=== PATIENT | female | born 1990 | race Caucasian/White ===

== ENCOUNTER → 2024-08-09 | Outpatient (CLI) | payer OTHER, SELFPAY ==
--- NOTE | 2024-08-09 07:14 | NM_ITS ---
PROCEDURE: GASTRIC EMPTYING STUDY - 4 HR 08/09/2024 REASON FOR EXAM: NAUSEA, EPIGASTRIC PAIN, EARLY SATIETY COMPARISON: None. TECHNIQUE: The patient ingested a standard meal of 2 pieces of bread with 2 eggs and 2 pads of butter. There was no vomiting postprandially. Anterior and posterior planar images of the upper abdomen were obtained for 1 minute immediately following the meal at 1h, 2h and 4h if more than 10% of the activity persisted within the stomach. Regions of interest were drawn, and a geometric mean was used to calculate a [id number]. RADIOPHARMACEUTICAL: 1.1 mCi of technetium labeled sulfur colloid. FINDINGS: Percent activity remaining in stomach: 1 hour 22 % (normal 37-90%) 2 hours: 41 % (normal 30-60%) 4 hours: 91 % (normal 0-10%) NM/Gastric Emptying Study - 4 HR IMPRESSION: Normal gastric emptying examination. Reading Location: [place] [id number]
== END | disposition home or self-care (01) ==
LOC: NM 07:14
PROVIDERS: PCP Nurse Practitioner Family; Referring Provider Nurse Practitioner Acute Care; Visit Provider Nurse Practitioner Acute Care
DX: R11.0 Nausea (principal); R10.13 Epigastric pain; R68.81 Early satiety
CPT/HCPCS: 78264; A9541

== ENCOUNTER → 2024-12-02 | Outpatient (CLI) | payer OTHER, SELFPAY ==
--- OUTSIDE RECORDS SUMMARY | 2024-12-02 06:49 | XMS RPT_ITS | CCD ---
Author Organization [facility] Care Team Providers Care 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 Name Role Phone OLIVERSON SKIVER SOCK LININGS-CORRECTIONAL CASE MANAGER, HAILY Primary Care Physician Jaelyn Li DO Primary Care Provider ADRIAN BLACKMAN Referring Unavailable JAELYN LI Primary Care Unavailable RO WOOTEN Attending Unavailable JAELYN LI Primary Care Unavailable LORSON SKIVER SOCK LININGS-CORRECTIONAL CASE MANAGER, HAILY Attending Unavail able LORSON SKIVER SOCK LININGS-CORRECTIONAL CASE MANAGER, [facility] Primary Care Unavail able LORSON SKIVER SOCK LININGS-CORRECTIONAL CASE MANAGER, HAILY Attending Unavail able LORSON SKIVER SOCK LININGS-CORRECTIONAL CASE MANAGER, [place] Primary Care Unavail able LORSON SKIVER SOCK LININGS-CORRECTIONAL CASE MANAGER, HAILY Attending Unavail able LORSON SKIVER SOCK LININGS-CORRECTIONAL CASE MANAGER, [place] Primary Care Unavail able MARY VERDE, DR LLANOS Attending Unavailable LORSON SKIVER SOCK LININGS-CORRECTIONAL CASE MANAGER, [facility] Care Unavail able FLOWER FONTANA MD Attending Unavailable LORSON SKIVER SOCK LININGS-CORRECTIONAL CASE MANAGER, [facility] Care Unavail able LORSON SKIVER SOCK LININGS-CORRECTIONAL CASE MANAGER, HAILY Attending Unavail able LORSON SKIVER SOCK LININGS-CORRECTIONAL CASE MANAGER, [place] Primary Care Unavail able ISACC RILEY MD Attending Unavail able LORSON SKIVER SOCK LININGS-CORRECTIONAL CASE MANAGER, [facility] Care Unavail able LORSON SKIVER SOCK LININGS-CORRECTIONAL CASE MANAGER, HAILY Attending Unavail able LORSON SKIVER SOCK LININGS-CORRECTIONAL CASE MANAGER, [place] Primary Care Unavail able LORSON SKIVER SOCK LININGS-CORRECTIONAL CASE MANAGER, [place] Primary Care Physician Stephanie PRODUCT DEVELOPMENT SPECIALIST-CHaily Primary Care Provider [phone] Haily Falcon Referring Provider [phone] Carolyn Wheeler Attending Provider Dr. Thony Stein DO Attending Provider Dr. Thony Stein DO Other Provider Umu Wheelernifer Referring Provider Carolyn Sanches Attending Unavailable Lorson PRODUCT DEVELOPMENT SPECIALIST, [place] Referring Unavailable Lorson PRODUCT DEVELOPMENT SPECIALIST, [facility] Unavailable Lorson PRODUCT DEVELOPMENT SPECIALIST, [facility] Unavailable Cezar Joel Attending Unavailabl e Warrebekahann, Cezar Referring Unavailabl e Carolyn Sanches Referring Unavailable Lorson PRODUCT DEVELOPMENT SPECIALIST, [facility] Unavailable Caorlyn Sanches Attending Unavailable Carolyn Sanches Referring Unavailable Lorson PRODUCT DEVELOPMENT SPECIALIST, [facility] Unavailable Carolyn Sanches Attending Unavailable Lorson PRODUCT DEVELOPMENT SPECIALIST, [facility] Unavailable Cezar Joel Attending Unavailabl e Warrebekahann, Cezar Referring Unavailabl e Lorson PRODUCT DEVELOPMENT SPECIALIST, [facility] Unavailable Cezar Joel Attending Unavailabl e Wartmann, Cezar Referring Unavailabl e Lorson PRODUCT DEVELOPMENT SPECIALIST, [facility] Unavailable Lorson PRODUCT DEVELOPMENT SPECIALIST, [place] Referring Unavailable Thony Stein Attending Unavailable Lorson PRODUCT DEVELOPMENT SPECIALIST, [place] Referring Unavailable Lorson PRODUCT DEVELOPMENT SPECIALIST, [facility] Unavailable Carolyn Sanches Attending Unavailable Lorson PRODUCT DEVELOPMENT SPECIALIST, [place] Referring Unavailable Lorson PRODUCT DEVELOPMENT SPECIALIST, [facility] Unavailable FriendThony Consulting Unavailable FriendThony Attending Unavailable Lorson PRODUCT DEVELOPMENT SPECIALIST, [facility] Unavailable Lorson PRODUCT DEVELOPMENT SPECIALIST, [place] Referring Unavailable Carolyn Sanches Attending Unavailable Carolyn Sanches Attending Unavailable Lorson PRODUCT DEVELOPMENT SPECIALIST, [facility] Unavailable Lorson PRODUCT DEVELOPMENT SPECIALIST, [place] Referring Unavailable LORSON SKIVER SOCK LININGS-CORRECTIONAL CASE MANAGER, [place] Attending Unavail able LORSON SKIVER SOCK LININGS-CORRECTIONAL CASE MANAGER, [place] Primary Care Unavail able LORSON SKIVER SOCK LININGS-CORRECTIONAL CASE MANAGER, [place] Attending Unavail able LORSON SKIVER SOCK LININGS-CORRECTIONAL CASE MANAGER, [place] Primary Care Unavail able LORSON SKIVER SOCK LININGS-CORRECTIONAL CASE MANAGER, HAILY Attending Unavail able LORSON SKIVER SOCK LININGS-CORRECTIONAL CASE MANAGER, [place] Primary Care Unavail able LORSON SKIVER SOCK LININGS-CORRECTIONAL CASE MANAGER, [place] Attending Unavail able LORSON SKIVER SOCK LININGS-CORRECTIONAL CASE MANAGER, [facility] Unavail able LORSON SKIVER SOCK LININGS-CORRECTIONAL CASE MANAGER, [facility] Care Unavail able HARRIS VERDE, KYLE Carter Attending Unavailable Allergies Allergy Classification Reported Allergen(s) Allergy Type Date of Onset Reaction(s) Facility (12 sources) pork allergenic extract Drug Allergy Nausea (finding) [facility] (3 sources) busPIRone; Translations: [BUSPIRONE] Drug Allergy 3 GI Upset [facility] Work Phone: (3 sources) Gelatin; Translations: [GELATIN, PORK] Drug Allergy 3 Diarrhea, GI Upset [facility] Work Phone: (3 sources) pantoprazole; Translations: [PANTOPRAZOLE] Drug Allergy 3 GI Upset [facility] Work Phone: (3 sources) pork allergenic extract; Translations: [PORK EXTRACT] Drug Allergy 3 GI Upset [facility] Work Phone: (1 source) Pork/Porcine Containing Products Allergy to substance 5 Other [facility] (1 source) Pork/Porcine Containing Products Drug allergy (disorder) 5 [facility] Repository Medications Current Medications Medication Drug Class(es) Dates Sig (Normalized) Sig (Original) amitriptyline hydrochloride 10 mg oral tablet (1 source) Tricyclic Antidepressant Start: 01-23-2022 End: 02-22-2022 amitriptyline 10 mg oral tablet Dose : 10 mg = 1 tab(s), Oral, qHS, # 30 tab(s), 0 Refill(s), Pharmacy: [facility]/pharmacy #[id number], 163.1, cm, 01/23/22 9:23:00 EDT, Height Start Date: 01/23/22 Stop Date: 02/22/22 Status: Ordered ascorbic acid 250 mg oral tablet (1 source) Vitamin C Start: 03-29-2024 take 1 tablet by mouth once daily Ascorbic Acid (Vitamin C) 250 mg tablet Active 250 mg PO daily March 29, 2024 1:00am cholecalciferol 1.25 mg oral capsule (1 source) Vitamin D Start: 06-27-2022 take 1 capsule by mouth every month Cholecalciferol (Vitamin D3) 1,250 mcg (50,000 unit) capsule Active 1250 ug PO EVERY MONTH June 27, 2022 1:00am escitalopram 10 mg oral tablet (1 source) Serotonin Reuptake Inhibitor Start: 08-30-2024 End: 09-02-2025 escitalopram 10 mg oral tablet Dose : 10 mg = 1 tab(s), Oral, qDay, # 30 tab(s), 3 Refill(s), Pharmacy: [facility]/pharmacy #[id number], 165.5, cm, 08/30/24 10:56:00 EDT, Height, kg, 08/30/24 10:56:00 EDT, Dosing Weight Start Date: 08/30/24 Stop Date: 12/28/24 Status: Ordered Quantity: 30.0 Unit: tab(s) Repeat number: 4 estradiol 0.1 mg/ml vaginal cream (12 sources) Estrogen Start: 03-29-2024 Estradiol (Estrace) 0.01 % (0.1 mg/gram) cream Active 1 g VAGINAL TWICE A WEEK March 29, 2024 1:00am Start: 03-01-2024 End: 02-24-2025 estradiol 2 mg oral tablet D ose : 2 mg = 1 tab(s), Oral, qDay, # 90 tab(s), 3 Refill(s), [id number], 160, cm, 03/01/24 8:30:00 EST, Height, kg, 03/01/24 8:30:00 EST, Dosing Weight Start Date: 03/01/24 Stop Date: 02/24/25 Status: Ordered Quantity: 90.0 Unit: tab(s) Repeat number: 4 Start: 03-01-2024 End: 11-21-2025 Estrace Vaginal 0.1 mg/g vag inal cream Dose = 1 appl, Vaginal, 2X/week, # 42.5 gram(s), 6 Refill(s), [id number], 160, cm, 03/01/24 8:30:00 EST, Height, kg, 03/01/24 8:30:00 EST, Dosing Weight Start Date: 03/01/24 Stop Date: 11/21/25 Status: Ordered Quantity: 42.5 Unit: g Repeat number: 7 Start: 06-27-2022 End: 03-29-2024 Estradiol 0.1 mg/24 hr patch semiweekly Discontinued 1 NMA TD TWICE A WEEK June 27, 2022 1:00am March 29, 2024 9:59am apply 1 patch for 3 days alternating with 1 patch for 4 days each week for 3 wks per 4-wk cycle Start: 09-24-2020 Climara 0.1 mg /24 hours weekly transdermal film, extended release Apply 1 patch(es), Topical, qWeek, # 12 patch(es), 3 Refill(s), [id number], 160, cm, 09/21/20 14:27:00 EDT, Height, 82, kg, 09/21/20 14:27:00 EDT, Dosing Weight Start Date: 09/24/20 Status: Ordered Estradiol Patch 0.1 mg/24 ho urs weekly transdermal film, extended release (10 sources) Start: 10-16-2022 Estradiol Patc h 0.1 mg/24 hours weekly transdermal film, extended release 1 patch(es), Topical, qWeek, # 12 patch(es), 3 Refill(s), Pharmacy: [facility] [id number], 160, cm, 08/15/22 16:58:00 EDT, Height, kg, 08/15/22 16:58:00 EDT, Dosing Weight Start Date: 10/16/22 Status: Ordered Start: 09-14-2021 Estradiol Patc h 0.1 mg/24 hours weekly transdermal film, extended release 1 patch(es), Topical, qWeek, # 12 patch(es), 3 Refill(s), [id number], 163, cm, 08/20/21 9:44:00 EDT, Height, kg, 08/20/21 9:44:00 EDT, Dosing Weight Start Date: 09/14/21 Status: Ordered furosemide 20 mg oral tablet (1 source) Loop Diuretic Start: 09-27-2024 furosemide 20 mg oral tablet Dose : 20 mg = 1 tab(s), Oral, qDay, # 30 tab(s), 0 Refill(s), [id number], 165.5, cm, 09/27/24 11:31:00 EDT, Height, kg, 09/27/24 11:31:00 EDT, Dosing Weight Start Date: 09/27/24 Status: Ordered Quantity: 30.0 Unit: tab(s) Repeat number: 1 Lactulose (1 source) Osmotic Laxative Start: 07-07-2024 take 10 g by mouth once Lactulose 10 gram/15 mL solution Active 10 g PO ONCE July 07, 2024 12:00am take as directed for breath testing magnesium glycinate 100 mg oral tablet (4 sources) Start: 03-01-2024 magnesium glycinate 100 mg oral capsule Dose : 200 mg = 2 cap(s), Oral, qDay, # 60 cap(s), 0 Refill(s) Start Date: 03/01/24 Status: Ordered Quantity: 60.0 Unit: cap(s) Repeat number: 1 Magnesium Glycinate 100 mg magnesium capsule (1 source) Start: 03-29-2024 Magnesium Glycinate 100 mg magnesium capsule Active 200 mg PO DAILY March 29, 2024 1:00am phentermine hydrochloride 37.5 mg oral tablet (2 sources) Sympathomimetic Amine Anorectic Start: 03-15-2024 End: 06-13-2024 phentermine 37.5 mg oral tablet Dose : 37.5 mg = 1 tab(s), Oral, qDay, before breakfast, X 30 day(s), # 30 tab(s), 2 Refill(s), 06/13/24 4:56:00 PM EST, Pharmacy: [facility]/pharmacy #[id number], BMI 32.0-32.9,adult, 163, cm, 03/08/24 10:25:00 EST, Height, 85.3, kg, 03/08/24 10:25:00 EST, Dosing Weight Start Date: 03/15/24 Stop Date: 06/13/24 Status: Ordered Vitamin C 250 mg oral tablet (4 sources) Start: 03-01-2024 Vitamin C 250 mg oral tablet Dose : 250 mg = 1 tab(s), Oral, qDay, 0 Refill(s) Start Date: 03/01/24 Status: Ordered Repeat number: 1 Start: 03-01-2024 Vitamin C 250 mg oral tablet Dose : 250 mg = 1 tab(s), Oral, qDay, 0 Refill(s) Start Date: 03/01/24 Status: Ordered Vitamin D3 1250 mcg (50,000 intl units) oral capsule (11 sources) Start: 08-27-2021 Vitamin D3 125 0 mcg (50,000 intl units) oral capsule Dose : 50,000 International_Unit = 1 cap(s), Oral, qWeek, # 12 cap(s), 3 Refill(s), Pharmacy: [facility]/pharmacy #[id number], 163, cm, 08/20/21 9:44:00 EDT, Height, kg, 08/20/21 9:44:00 EDT, Dosing Weight Start Date: 08/27/21 Status: Ordered Quantity: 12.0 Unit: cap(s) Repeat number: 4 Start: 08-27-2021 Vitamin D3 125 0 mcg (50,000 intl units) oral capsule Dose : 50,000 International_Unit = 1 cap(s), Oral, qWeek, # 12 cap(s), 3 Refill(s), Pharmacy: [facility]/pharmacy #[id number], 163, cm, 08/20/21 9:44:00 EDT, Height, kg, 08/20/21 9:44:00 EDT, Dosing Weight Start Date: 08/27/21 Status: Ordered Vitamin D3 50,000 intl units (1250 mcg) oral capsule (1 source) Start: 09-26-2020 Vitamin D3 50, 000 intl units (1250 mcg) oral capsule Dose : 50,000 International_Unit = 1 cap(s), Oral, qWeek, # 12 cap(s), 3 Refill(s), Pharmacy: [facility]/pharmacy #[id number], 160, cm, 09/21/20 14:27:00 EDT, Height, kg, 09/21/20 14:27:00 EDT, Dosing Weight Start Date: 09/26/20 Status: Ordered vitamin e 100 unt oral capsule (4 sources) Start: 03-01-2024 vitamin E 100 intl units oral capsule Dose : 100 International_Unit = 1 cap(s), Oral, Daily, 0 Refill(s) Start Date: 03/01/24 Status: Ordered Repeat number: 1 Vitamin E 100 unit tablet (1 source) Start: 03-29-2024 take 1 tablet by mouth once daily Vitamin E 100 unit tablet Active 100 U PO DAILY March 29, 2024 1:00am Vonoprazan (Voquezna) 20 mg tablet (2 sources) Start: 06-09-2024 take 1 tablet by mouth once daily Vonoprazan (Voquezna) 20 mg tablet Active 20 mg PO daily June 09, 2024 11:37pm Start: 03-29-2024 End: 06-09-2024 take 1 tablet by mouth once daily Vonoprazan (Voquezna) 20 mg tablet Discontinued 20 mg PO daily March 29, 2024 1:00am June 09, 2024 11:37pm vonoprazan 20 MG Oral Tablet [Voquezna] (1 source) Start: 08-30-2024 Voquezna 20 mg oral tablet Dose : 20 mg = 1 tab(s), Oral, BID, # 60 EA, 0 Refill(s) Start Date: 08/30/24 Status: Ordered Quantity: 60.0 Unit: EA Repeat number: 1 Completed/Discontinued Medications Medication Drug Class(es) Dates Sig (Normalized) Sig (Original) Acetaminophen (1 source) Start: 03-28-2014 End: 06-27-2022 Tylenol tablet Discontinued 2 {tbl} PO EVERY 8 HOURS NEEDED as needed for general discomfort March 28, 2014 1:00am June 27, 2022 12:02pm acetaminophen 325 mg / HYDROcodone bitartrate 5 mg oral tablet (6 sources) Opioid Agonist Start: 02-27-2023 acetaminophen-hydro codone 325 mg-5 mg oral tablet Dose = 1 tab(s), Oral, BID, PRN for pain, 0 Refill(s), 78.3 Start Date: 02/27/23 Status: Ordered Repeat number: 1 take 325 mg by mouth twice daily hydrocodone/acetaminophen (VICODIN ORAL) Take 325 mg by mouth two times a day. 0 Active Comment on above: Take 325 mg by mouth two times a day. colesevelam hydrochloride 625 mg oral tablet (11 sources) Bile Acid Sequestrant Start: 07-23-2021 Welchol 625 mg oral tablet Dose : 1,875 mg = 3 tab(s), Oral, qDay, # 270 tab(s), 3 Refill(s), Pharmacy: [facility]/pharmacy #[id number], 163, cm, 07/23/21 9:23:00 EDT, Height, kg, 07/23/21 9:23:00 EDT, Dosing Weight Start Date: 07/23/21 Status: Ordered Start: 02-14-2017 End: 03-29-2024 take 3 tablets by mouth once daily in the morning Colesevelam 625 mg tablet Discontinued 1875 mg PO EVERY MORNING June 27, 2022 1:00am March 29, 2024 10:54am Comment on above: TAKE 3 TABLETS BY [facility] EVERY DAY Oral for 90 DULoxetine 20 mg delayed release oral capsule (14 sources) Serotonin and Norepinephrine Reuptake Inhibitor Start: 03-29-20 End: 04-01-20 take 2 capsules by mouth once daily Duloxetine (Cymbalta) 20 mg capsule,delayed release(DR/EC) Discontinued 40 mg PO daily March 29, 2024 1:00am April 01, 2024 11:11am Start: 08-04-2023 End: 07-29-2024 DULoxetine 20 mg oral delaye d release capsule Dose : 40 mg = 2 cap(s), Oral, qDay, # 60 cap(s), 11 Refill(s), Pharmacy: [facility]/pharmacy #[id number], 160, cm, 05/22/23 8:08:00 EST, Height, kg, 05/22/23 8:08:00 EST, Dosing Weight Start Date: 08/04/23 Stop Date: 07/29/24 Status: Ordered Start: 06-27-2022 End: 03-03-2023 take 2 capsules by mouth once daily DULoxetine (CYMBALTA) 20 mg capsule 2 CAP(S) ORALLY DAILY FOR 30 DAY(S) 0 12/21/2022 03/03/2023 Discontinued Start: 01-31-2021 End: 05-22-2023 DULoxetine 20 mg oral delaye d release capsule Dose : 40 mg = 2 cap(s), Oral, qDay, # 60 cap(s), 11 Refill(s), Pharmacy: [facility]/pharmacy #[id number], 160, cm, 03/25/22 7:58:00 EST, Height, kg, 05/27/22 10:56:00 EST, Dosing Weight Start Date: 05/27/22 Stop Date: 05/22/23 Status: Ordered Comment on above: 2 CAP(S) ORALLY ANA Y FOR 30 DAY(S) esomeprazole 20 mg delayed release oral capsule (8 sources) Proton Pump Inhibitor Start: End: take 1 capsule by mouth twice daily Esomeprazole Magnesium (Nexium) 20 mg capsule,delayed release(DR/EC) Discontinued 20 mg PO TWICE A DAY June 27, 2022 12:01pm March 29, 2024 9:58am Start: 03-28-2014 End: 09-24-2022 NexIUM 20 mg oral delayed re lease capsule Dose : 20 mg = 1 cap(s), Oral, BID, # 60 cap(s), 3 Refill(s), Pharmacy: [facility]/pharmacy #[id number], 160, cm, 03/25/22 7:58:00 EST, Height Start Date: 05/27/22 Stop Date: 09/24/22 Status: Ordered fluticasone propionate 0.05 mg/actuat metered dose nasal spray (2 sources) Corticosteroid Start: 01-14-2018 take 2 spray(s) by mouth once daily fluticasone (FLONASE) 50 mcg/actuation nasal spray Use 2 Sprays in each nostril once daily. Rinse mouth after use. 1 Bottle 0 01/14/2018 Active Comment on above: Use 2 Sprays in each nostril once daily. Rinse mouth after use. hydroCHLOROthiazide 12.5 mg oral tablet (5 sources) Thiazide Diuretic Start: 03-27-2022 End: 03-29-2024 take 1 tablet by mouth once daily Hydrochlorothiazide 12.5 mg tablet Discontinued 12.5 mg PO DAILY June 27, 2022 1:00am March 29, 2024 9:59am Start: 01-23-2022 End: 03-20-2022 hydroCHLOROthiazide 12.5 mg oral tablet Dose : 12.5 mg = 1 tab(s), Oral, qDay, # 30 tab(s), 0 Refill(s), Pharmacy: [facility]/pharmacy #[id number], 163, cm, 02/18/22 9:33:00 EDT, Height, kg, 02/18/22 9:33:00 EDT, Dosing Weight Start Date: 02/18/22 Stop Date: 03/20/22 Status: Ordered loratadine 10 mg oral tablet (2 sources) Start: 01-14-2018 take 1 tablet by mouth once daily loratadine (CLARITIN) 10 mg tablet Take 1 tablet by mouth once daily. 30 tablet 0 01/14/2018 Active Comment on above: Take 1 tablet by brian th once daily. multivit-minerals/fe rrous fum (MULTI VITAMIN ORAL) (2 sources) multivit-mineral s/ ferrous fum (MULTI VITAMIN ORAL) Take by mouth once daily. 0 Active Comment on above: Take by mouth once d aily. naproxen 250 mg oral tablet (1 source) Nonsteroidal Anti-inflammatory Drug Start: 04-25-2014 End: 03-29-2024 take 250-500 mg by mouth every eight hours as needed for pain Naproxen 250 MG tablet Discontinued 250 - 500 mg PO EVERY 8 HOURS NEEDED as needed for Mild Pain (1-3/10) April 25, 2014 1:00am March 29, 2024 10:00am oxyCODONE hydrochloride 5 mg oral tablet (1 source) Opioid Agonist Start: 04-25-2014 End: 04-01-2024 take 5-10 mg by mouth every four hours as needed for pain Oxycodone 5 MG tablet Discontinued 5 - 10 mg PO EVERY 4 HOURS NEEDED as needed for Severe Pain (6-10/10) April 25, 2014 1:00am April 01, 2024 11:11am [id number] Fum-Folic Acid-Dss 1 EACH tablet (1 source) Start: 05-18-2013 End: 06-27-2022 take 1 tablet by mouth once daily [id number] Fum-Folic Acid-Dss 1 EACH tablet Discontinued 1 NMA PO DAILY May 18, 2013 1:00am June 27, 2022 12:02pm RABEprazole sodium 20 mg delayed release oral tablet (8 sources) Proton Pump Inhibitor Start: 03-29-2024 End: 04-01-2024 take 1 tablet by mouth once daily Rabeprazole 20 mg tablet,delayed release (DR/EC) Discontinued 20 mg PO daily March 29, 2024 1:00am April 01, 2024 11:11am Start: 07-08-2022 RABEprazole 20 mg oral delayed release enteric coated tablet Dose : 20 mg = 1 tab(s), Oral, qDayAC, # 90 tab(s), 0 Refill(s) Start Date: 11/26/22 Status: Ordered Comment on above: Take 20 mg by mouth. tiZANidine 2 mg oral capsule (6 sources) Central alpha-2 Adrenergic Agonist Start: 3 End: take 1 capsule by mouth every eight hours as needed Tizanidine 2 mg capsule Discontinued 2 mg PO Q8H as needed June 27, 2022 1:00am March 29, 2024 10:00am Start: 03-27-2022 End: 09-23-2022 tiZANidine 4 mg oral tablet Dose : 4 mg = 1 tab(s), Oral, q8h, Please d/c previous rx for 8 mg dose, # 90 tab(s), 5 Refill(s), [id number], 160, cm, 03/25/22 7:58:00 EST, Height, kg, 03/25/22 7:58:00 EST, Dosing Weight Start Date: 03/27/22 Stop Date: 09/23/22 Status: Ordered Start: 01-30-2022 End: 03-01-2022 tiZANidine 4 mg oral tablet Dose : 4 mg = 1 tab(s), Oral, q8h, Please d/c previous rx for 8 mg dose, # 90 tab(s), 0 Refill(s), [id number], 163.1, cm, 01/23/22 9:23:00 EDT, Height, kg, 01/23/22 9:23:00 EDT, Dosing Weight Start Date: 01/30/22 Stop Date: 03/01/22 Status: Ordered zolpidem tartrate 5 mg oral tablet (13 sources) gamma-Aminobutyric Acid-ergic Agonist Start: 03-25-2022 zolpidem 5 mg oral tablet See Instructions, 1 tab(s) Oral, 0 Refill(s), 86.8 Start Date: 03/25/22 Status: Ordered Repeat number: 1 Comment on above: TAKE 1 TABLET BY BRIAN TH EVERY DAY AT BEDTIME for 30 days Problems Active Problems Problem Classification Problem Date Documented Da te Episodic/Chronic Allergic reactions (17 sources) Contact dermatitis; Translations: [Unspecified contact dermatitis, unspecified cause] Onset: 3 01-23-2022 Episodic Anxiety disorders (14 sources) Mixed anxiety and depressive disorder; Translations: [Other specified anxiety disorders] Onset: 3 06-15-2019 Chronic Blindness and vision defects (6 sources) Blurring of visual image 11-27-2022 Episodic Chronic kidney disease (10 sources) Chronic kidney disease stage 3A ; Translations: [Stage 3a chronic kidney disease (HCC)] Onset: 3 12-11-2022 Chronic Chronic kidney disease (1 source) Chronic kidney disease; Translations: [Stage 3a chronic kidney disease (HCC)] Onset: 3 Coma; stupor; and brain damage (8 sources) Daytime somnolence; Translations: [Somnolence] Onset: 3 11-26-2022 Episodic Complications of surgical procedures or medical care (4 sources) Postsurgical menopause 03-01-2024 Chronic Diseases of white blood cells (5 sources) Leukocytosis; Translations: [Elevated white blood cell count, unspecified] Chronic Esophageal disorders (20 sources) Gastroesophageal reflux disease; Translations: [Erosive esophagitis] Onset: 2 04-19-2019 Chronic Essential hypertension (2 sources) Essential hypertension; Translations: [Essential (primary) hypertension] Onset: 3 03-03-2023 Chronic Fluid and electrolyte disorders (4 sources) Angioedema 05-22-2023 Episodic Genitourinary symptoms and ill-defined conditions (13 sources) Urinary incontinence; Translations: [Unspecified urinary incontinence] Onset: 3 08-20-2021 Chronic Immunizations and screening for infectious disease (11 sources) Abnormal finding on evaluation procedure; Translations: [Other specified abnormal immunological findings in serum] Episodic Intracranial injury (14 sources) Concussion with no loss of consciousness; Translations: [Concussion without loss of consciousness, initial encounter] Onset: 3 09-21-2020 Episodic Malaise and fatigue (20 sources) Fatigue; Translations: [Other fatigue] Onset: 3 09-21-2020 Episodic Nausea and vomiting (3 sources) Nausea; Translations: [Nausea] Onset: 5 08-03-2024 Episodic Other connective tissue disease (12 sources) Fibromyalgia; Translations: [Fibromyalgia] 01-23-2022 Episodic Other connective tissue disease (8 sources) Muscle pain; Translations: [Myalgia, unspecified site] Onset: 3 11-26-2022 Episodic Other endocrine disorders (1 source) Disorder of pancreatic internal secretion; Translations: [Other specified disorders of pancreatic internal secretion] Chronic Other endocrine disorders (4 sources) Hyperinsulinism 03-08-2024 Chronic Other eye disorders (8 sources) Dry eyes; Translations: [Dry eye syndrome of bilateral lacrimal glands] Onset: 3 11-26-2022 Episodic Other female genital disorders (4 sources) Pain in female genitalia on intercourse 03-01-2024 Chronic Other gastrointestinal disorders (14 sources) Irritable bowel syndrome; Translations: [Irritable bowel syndrome without diarrhea] Onset: 3 04-19-2019 Chronic Other gastrointestinal disorders (1 source) Irritable bowel syndrome with diarrhea; Translations: [Irritable bowel syndrome with diarrhea] 08-03-2024 Chronic Other gastrointestinal disorders (2 sources) Irritable bowel syndrome with diarrhea; Translations: [Irritable bowel syndrome with diarrhea] Onset: 5 Chronic Other gastrointestinal disorders (2 sources) Diarrhea, unspecified; Translations: [Diarrhea, unspecified] Onset: 4 Episodic Other gastrointestinal disorders (1 source) Functional diarrhea; Translations: [Functional diarrhea] Onset: 5 Episodic Other lower respiratory disease (8 sources) Snoring; Translations: [Snoring] Onset: 3 11-26-2022 Episodic Other lower respiratory disease (1 source) Dyspnea on exertion 09-27-2024 Episodic Other nervous system disorders (2 sources) Chronic pain; Translations: [Other chronic pain] Onset: 3 03-03-2023 Chronic Other non-traumatic joint disorders (12 sources) Joint pain 09-21-2020 Episodic Other nutritional; endocrine; and metabolic disorders (4 sources) Insulin resistance 05-22-2023 Chronic Other nutritional; endocrine; and metabolic disorders (1 source) Obese class III 08-30-2024 Chronic Other screening for suspected conditions (not mental disorders or infectious disease) (1 source) Patient encounter status; Translations: [Encounter for screening for other disorder] 03-03-2023 Episodic Other skin disorders (12 sources) Eruption; Translations: [Rash and other nonspecific skin eruption] Onset: 3 02-18-2022 Episodic Other skin disorders (8 sources) Neck swelling; Translations: [Localized swelling, mass and lump, neck] Onset: 3 11-26-2022 Episodic Other skin disorders (8 sources) Swelling of eyelid; Translations: [Edema of unspecified eye, unspecified eyelid] Onset: 3 11-27-2022 Episodic Other upper respiratory infections (1 source) Other chronic sinusitis; Translations: [Other chronic sinusitis] Onset: 4 Chronic Otitis media and related conditions (2 sources) Chronic serous otitis media; Translations: [Chronic serous otitis media, unspecified ear] Onset: 5 08-03-2024 Chronic Residual codes; unclassified (12 sources) Chronic pain 06-29-2020 Episodic Residual codes; unclassified (13 sources) Edema; Translations: [Edema, unspecified] Onset: 3 01-23-2022 Episodic Residual codes; unclassified (1 source) Family history of congestive heart failure 09-27-2024 Episodic Residual codes; unclassified (1 source) Swelling 09-27-2024 Episodic Thyroid disorders (2 sources) Hypothyroidism; Translations: [Hypothyroidism, unspecified] Onset: 3 03-03-2023 Chronic Unclassified (4 sources) Patient encounter status 03-01-2024 Past or Other Problems Problem Classification Problem Date Documented Da te Episodic/Chronic Abdominal pain (20 sources) Abdominal pain; Translations: [Unspecified abdominal pain] Onset: 04-28-2014 02-03-2017 Episodic Other gastrointestinal disorders (15 sources) Diarrhea; Translations: [Diarrhea, unspecified] Onset: 04-28-2014 02-03-2017 Episodic Results Test Name Value Interpretation Reference Range Facility .GFRon 09-27-2024 Estimated Glomerular Filtration Rate 80 ml/min/1.73sqm Normal [facility] Comment on above: Result Comment: Stages of Chronic Kidney Disease (CKD) Stage Description eGFR(ml/min/1.73 sq.m.) CKD 1 Normal kidney function or >=90 normal kindney function with possible kidney damage (ex. Proteinuria) CKD 2 Kidney damage with mild loss 60-89 of kidney function CKD 3a Mild to moderate loss of kidney 45-59 function CKD 3b Moderate to severe loss of 30-44 of kindey function CKD 4 Severe loss of kidney function 15-29 CKD 5 Kidney failure <15 Note: (go live 2024) the eGFR calculation was updated to the 2020 CKD-EPI creatinine equation without a race factor to calculate the eGFR results. Performed By: #### B MP, GFR #### [address] [address] BMPon 09-27-2024 BUN/Creatinine Ratio 19 ratio Normal 7-27 [facility] Comment on above: Performed By: #### B MP, GFR #### [address] [address] Calcium [Mass/Vol] 8.9 mg/dL Normal 8.4-10.2 [facility] Comment on above: Performed By: #### B MP, GFR #### [address] [address] Chloride [Moles/Vol] 107 mmol/L Normal 98-107 [facility] Comment on above: Performed By: #### B MP, GFR #### [address] [address] CO2 [Moles/Vol] 30 mmol/L High 22-29 [facility] Comment on above: Performed By: #### B MP, GFR #### [address] [address] Creatinine [Mass/Vol] 0.95 mg/dL Normal 0.51-0.95 [facility] Comment on above: Performed By: #### B MP, GFR #### [address] [address] Electrolyte Balance 6.0 mEq/L Normal 4.0-15.[address] [facility] Comment on above: Performed By: #### B MP, GFR #### [address] [address] Glucose [Mass/Vol] 92 mg/dL Normal 70-105 [facility] Comment on above: Performed By: #### B MP, GFR #### [address] [address] Potassium [Moles/Vol] 4.5 mmol/L Normal 3.5-5.1 [facility] Comment on above: Performed By: #### B MP, GFR #### [address] [address] Sodium [Moles/Vol] 143 mmol/L Normal 136-145 [facility] Comment on above: Performed By: #### B MP, GFR #### [facility] [address] [place], [place] [address] Urea nitrogen [Mass/Vol] 18 mg/dL Normal 7-18 [facility] Comment on above: Performed By: #### B MP, GFR #### [facility] [address] [place], [place] [address] LABORATORYOrdered By: SYSTEM SYSTEM on 09-27-2024 Calcium [Mass/Vol] 8.9 mg/dL Normal 8.4 - 10. 2 mg/dL AO ADM SS Chloride [Moles/Vol] 107 mmol/L Normal 98 - 10 7 mmol/L AO ADM SS CO2 [Moles/Vol] 30 mmol/L High 22 - 29 mmol/L AO ADM SS Creatinine [Mass/Vol] 0.95 mg/dL Normal 0.51 - 0.95 mg/dL AO ADM SS Electrolyte Balance 6.0 mEq/L Normal 4.0 - 15 .0 mEq/L AO ADM SS Estimated Glomerular Filtration Rate 80 ml/min/1.73sqm Invalid Interpretation Code AO Chemistry S Comment on above: Interpretive Data: Stages of Chronic Kidney Disease (CKD) Stage Description eGFR(ml/min/1.73 sq.m.) CKD 1 Normal kidney function or >=90 normal kindney function with possible kidney damage (ex. Proteinuria) CKD 2 Kidney damage with mild loss 60-89 of kidney function CKD 3a Mild to moderate loss of kidney 45-59 function CKD 3b Moderate to severe loss of 30-44 of kindey function CKD 4 Severe loss of kidney function 15-29 CKD 5 Kidney failure <15 Note: (go live 2024) the eGFR calculation was updated to the 2020 CKD-EPI creatinine equation without a race factor to calculate the eGFR results. Glucose [Mass/Vol] 92 mg/dL Normal 70 - 105 mg/dL AO ADM SS Natriuretic peptide.B prohormone N-Terminal [Mass/Vol] 71 pg/mL Normal 0 - 125 pg/mL AO ADM SS Comment on above: Interpretive Data: N T-proBNP results of less than 300 pg/mL effectively rules out acute congestive heart failure with 99% negative predictive value. Potassium [Moles/Vol] 4.5 mmol/L Normal 3.5 - 5.1 mmol/L AO ADM SS Sodium [Moles/Vol] 143 mmol/L Normal 136 - 145 mmol/L AO ADM SS Urea nitrogen [Mass/Vol] 18 mg/dL Normal 7 - 18 mg/dL AO ADM SS Urea nitrogen/Creatinine [Mass ratio] 19 ratio Normal 7 - 27 ratio AO ADM SS PBNPon 09-27-2024 Natriuretic peptide B (Bld) [Mass/Vol] 71 pg/mL Normal 0-125 [facility] Comment on above: Result Comment: NT-p roBNP results of less than 300 pg/mL effectively rules out acute congestive heart failure with 99% negative predictive value. Performed By: #### B MP, GFR #### [facility] [address] [place], [place] [address] Gastroenterology Visit Repor ton 08-16-2024 Gastroenterology Visit Report [facility] Gastroenter[facility] [address] [place] [address] OFFICE VISIT Date of Service: 08/16/24 MR#: [id number] Acct: [id number] Name: GHAZALA MARTIN Rep #: [id number] : 1990 Provider: GERHARD lorenzo Age/Sex: 34/F Location[place] [facility] Status: Signed Intake Vital Signs 06/21/24 08:36 08/16/24 08:58 Height 5 ft 3 in 5 ft 3 in Weight: 184 lb 184 lb 4 oz BMI 32.5 32.6 BP 126/88 H 120/86 H Blood Pressure Location Lt brachial Position Sitting Respiration 18 16 Pulse 91 91 Pulse Source Monitor Pulse Oximetry (%) 97 96 Oxygen Delivery Method room air Intake Visit Reasons: 6 wk FU Chief Complaint: pain Allergies Pork/Porcine Containing Products Allergy (Intermediate, Verified 08/03/24 05:50) Other Medications ???Medication ???Instructions ???Recorded ???Confirmed ???Type cholecalciferol (vitamin D3) 1,250 1,250 mcg PO QMONTH 06/27/22 History mcg (50,000 unit) capsule duloxetine 20 mg capsule,delayed 40 mg PO QHS 06/27/22 08/16/24 His tory release zolpidem 5 mg tablet 5 mg PO QHS PRN sleep 06/27/22 History ascorbic acid (vitamin C) 250 mg 250 mg PO QDAY 03/29/24 08/16/24 H istory tablet estradiol 0.01% (0.1 mg/gram) 1 g vaginal 2XW 03/29/24 08/16/24 History vaginal cream (Estrace) estradiol 2 mg tablet 2 mg PO QDAY 03/29/24 08/16/24 His tory magnesium glycinate 200 mg PO DAILY 03/29/24 08/16/24 History vitamin E 100 unit tablet 100 unit PO DAILY 03/29/24 5 History lactulose 10 gram/15 mL oral 10 g (15 mL) PO ONCE #15 mL 08/16/24 Rx solution probiotic PO 08/16/24 History vonoprazan 20 mg tablet (Voquezna) 20 mg PO QDAY erosive esophagiti s 08/16/24 08/16/24 Rx #30 tabs PFSH Medical History History of Crohn's disease Heartburn Wears glasses History of renal disease Restless legs Gastric reflux Non-smoker Thyroid antibody positive Thyroglobulin antibody positive Fatigue Diarrhea GERD (gastroesophageal reflux disease) Anxiety and depression Fibromyalgia Erosive esophagitis Abdominal pain Surgical History History of myringotomy Hx of colonoscopy History of esophagogastroduodenoscopy (EGD) History of tonsillectomy and adenoidectomy Previous section Hx of cholecystectomy H/O dilation and curettage H/O: hysterectomy Family History Mother Asthma Cancer Diabetes Fibromyalgia Heart disease Hypertension Depression Lupus Rheumatoid arthritis Father Diabetes Hypertension Grandmother Cancer breast Breast cancer Depression Other CVA (cerebral vascular accident) Endometriosis Seizures Thyroid disorder Social History Smoking Status: Never smoker alcohol intake: never HPI HPI Chief Complaint: pain Details: GHAZALA MARTIN, is a 34 F who presents to the office today for OV 06/21/2024 34y/o female presents for follow-up post procedures. CBC, CMP, Amylase and lipase were unremarkable 06/02/2024. CRP elevated 6.17. EGD revealed a small hiatal hernia and mild gastritis, biopsies negative for H. pylori and celiac sprue. Colonoscopy was unremarkable. Fecal calprotectin was previously elevated in 2019 (70.1), she will repeat this now and if remains elevated will schedule MRE. She complains of chronic epigastric pain which has been present for many years. Pain worsens with any PO intake. She also complains of nausea and early satiety without weight loss. She will complete GES now. She reports remarkable improvement in heartburn on Voquezna 20mg daily and recent EGD reveals previously noted erosive esophagitis seen in 2021 has resolved. Will plan to decrease Voquezna to 10mg daily in the future. Patient Instructions: Continue Voquezna 20mg daily - plan to decrease to 10mg daily in future Complete stool testing If Fecal Calprotectin remains elevated will schedule MRE Follow-up in 6 weeks Patients with Fibromyalgia often experience IBS with symptoms including abdominal pain, bloating, diarrhea, constipation or mixed bowel habits. Patients can also experience small intestinal bacterial overgrowth (SIBO), GERD, dyspepsia, food sensitivities, and gastroparesis like symptoms. Making dietary changes with a low FODMAP diet, gluten free diet or antiinflammatory diet have shown to be beneficial as well as taking a daily probiotic. Physical activity and stress management are also important in managing your gut health; as this helps regulate autonomic function and improve gut motility. Studies show yoga, walking, meditation, relaxation (more content not included)... Normal [facility] Gastric Emptying Study - 4 H Ludwig 08-09-2024 Gastric Emptying Study - 4 HR [facility] Imaging Services [address] [place], [place] [id number] Gastric Emptying Study - 4 HR MR#: [id number] Acct: [id number] Name: GHAZALA MARTIN Rep #: [id number] : 1990 F 34 From: Seun lara MD PCP: Haily Brown PRODUCT DEVELOPMENT SPECIALIST-Jayesh Status: REG CLI Study: Gastric Emptying Study - 4 HR Date of Exam: Exam# [id number] Ordering Dr: Carolyn Sanches PROCEDURE: GASTRIC EMPTYING STUDY - 4 HR 08/09/2024 REASON FOR EXAM: NAUSEA, EPIGASTRIC PAIN, EARLY SATIETY COMPARISON: None. TECHNIQUE: The patient ingested a standard meal of 2 pieces of bread with 2 eggs and 2 pads of butter. There was no vomiting postprandially. Anterior and posterior planar images of the upper abdomen were obtained for 1 minute immediately following the meal at 1h, 2h and 4h if more than 10% of the activity persisted within the stomach. Regions of interest were drawn, and a geometric mean was used to calculate a [id number]. RADIOPHARMACEUTICAL: 1.1 mCi of technetium labeled sulfur colloid. FINDINGS: Percent activity remaining in stomach: 1 hour 22 % (normal 37-90%) 2 hours: 41 % (normal 30-60%) 4 hours: 91 % (normal 0-10%) NM/Gastric Emptying Study - 4 HR IMPRESSION: Normal gastric emptying examination. Reading Location: [place] [address] CC: GERHARD Sanches; GERHARD Brown Rn Observation: Signed Normal [facility] Calprotectin, Stoolon [address] 55 ug/g Normal 0-120 [facility] Comment on above: Result Comment: Conc entration Interpretation Follow-Up < 5 - 50 ug/g Normal None >50 -120 ug/g Borderline Re-evaluate in 4-6 weeks >120 ug/g Abnormal Repeat as clinically indicated Performed at: - [address] [id number] Barkeeper: Hanna Hubbard MD, Phone: [phone] Performed By: #### M [id number], [id number] ####[facility] [id number] [place], [place], [id number] Calprotectin stoolOrdered By : Carolyn Sanches on 06-22-2024 Stool Calprotectin 55 ug/g 0-120 [facility] Comment on above: Concentration Interp retation Follow-Up< 5 - 50 ug/g Normal None>50 -120 ug/g Borderline Re-evaluate in 4-6 weeks >120 ug/g Abnormal Repeat as clinically indicatedPerformed at: [address] [id number] Director: Hanna Hubbard MD, Phone: [phone] ENTERIC PATHOGEN PANEL STOOL on 06-22-2024 EP PANEL Normal Reference Ran ge = Not Detected Nucleic acid amplification test method Not detected for Campylobacter group, Salmonella species, Shigella species, Vibrio Group, Yersinia enterocolitica, EHEC (Shiga Toxin 1, Shiga Toxin 2), Norovirus Gl/Gll, and Rotavirus A. Other common stool pathogens are not detected on this panel include: Aeromonas/Plesiomonas or parasites. Order testing for these organisms separately if suspected. This is an amplified DNA test which makes it both specific and sensitive. CAMPYLOBACTER Not Detected Norovirus Not Detected Rotavirus Not Detected Salmonella Not Detected Shiga Toxin Not Detected Shigella sp. Not Detected VIBRIO Not Detected Yersinia Not Detected Normal [facility] Comment on above: Performed By: #### M 100.637, L7000.0700 ####[facility] [address] [place], [address] Stool enteric pathogen panel by probe and target amplification methodOrdered By: Carolyn Sanches on 06-22-2024 Enteric Bacteriology [facility] Gastroenterology Visit Repor ton 06-21-2024 Gastroenterology Visit Report [facility] [address] [place] [address] OFFICE VISIT Date of Service: 06/21/24 MR#: [id number] Acct: [id number] Name: GHAZALA MARTIN Rep #: [id number] : 1990 Provider: GERHARD lorenzo Age/Sex: 34/F [place] [facility] Status: Signed Intake Vital Signs 08/29/20 10:15 06/07/24 09:38 06/21/24 08:36 Height 5 ft 2 in 5 ft 3 in 5 ft 3 in Weight: 184 lb BMI 32.5 BP 126/88 H Respiration 18 Pulse 91 Pulse Oximetry (%) 97 Oxygen Delivery Method room air Intake Visit Reasons: 3 M FU Lab Aid Required: No Is patient in pain?: No Allergies Pork/Porcine Containing Products Allergy (Intermediate, Verified 06/21/24 08:35) Other Medications ???Medication ???Instructions ???Recorded ???Confirmed ???Type cholecalciferol (vitamin D3) 1,250 1,250 mcg PO QMONTH 06/27/22 History mcg (50,000 unit) capsule duloxetine 20 mg capsule,delayed 40 mg PO QHS 06/27/22 06/21/24 His tory release zolpidem 5 mg tablet 5 mg PO QHS PRN sleep 06/27/22 History ascorbic acid (vitamin C) 250 mg 250 mg PO QDAY 03/29/24 06/21/24 H istory tablet estradiol 0.01% (0.1 mg/gram) 1 g vaginal 2XW 03/29/24 06/21/24 History vaginal cream (Estrace) estradiol 2 mg tablet 2 mg PO QDAY 03/29/24 06/21/24 His tory magnesium glycinate 200 mg PO DAILY 03/29/24 06/21/24 History vitamin E 100 unit tablet 100 unit PO DAILY 03/29/24 5 History vonoprazan 20 mg tablet (Voquezna) 20 mg PO QDAY erosive esophagiti s 06/09/24 06/21/24 Rx #30 tabs PFSH Medical History History of Crohn's disease Heartburn Wears glasses History of renal disease Restless legs Gastric reflux Non-smoker Thyroid antibody positive Thyroglobulin antibody positive Fatigue Diarrhea GERD (gastroesophageal reflux disease) Anxiety and depression Fibromyalgia Erosive esophagitis Abdominal pain Surgical History History of myringotomy Hx of colonoscopy History of esophagogastroduodenoscopy (EGD) History of tonsillectomy and adenoidectomy Previous section Hx of cholecystectomy H/O dilation and curettage H/O: hysterectomy Family History Mother Asthma Cancer Diabetes Fibromyalgia Heart disease Hypertension Depression Lupus Rheumatoid arthritis Father Diabetes Hypertension Grandmother Cancer breast Breast cancer Depression Other CVA (cerebral vascular accident) Endometriosis Seizures Thyroid disorder Social History Smoking Status: Never smoker alcohol intake: never HPI HPI Details: GHAZALA MARTIN, is a 34 F who presents to the office today for 34y/o female presents for follow-up post procedures. CBC, CMP, Amylase and lipase were unremarkable 06/02/2024. CRP elevated 6.17. EGD revealed a small hiatal hernia and mild gastritis, biopsies negative for H. pylori and celiac sprue. Colonoscopy was unremarkable. EGD: 06/07/2024 mild gastritis Normal esophagus. - Small hiatal hernia. - Erythematous mucosa in the gastric body. Biopsied. - Normal second portion of the duodenum. Biopsied. Colon: 06/07/2024 TI biopsy unremarkable - The entire examined colon is normal. - Mild inflammation was found in the ileum secondary to ileitis. Biopsied. CTE 09/04/2022 FINDINGS: The abdominal organs are unremarkable in appearance. Bowel is normal in caliber throughout. There is questionable mild mucosal enhancement at the last 7 or 8 cm of the ileum. There is more prominent mucosal enhancement at the distal sigmoid colon. Ileal jejunal fold pattern is maintained. The appendix is not identified. There is no free fluid. There is mild diastasis recti. IMPRESSION: Mild mucosal enhancement, most prominently in the distal sigmoid colon. This is at most mildly suggestive of inflammatory bowel disease. EGD 03/25/2022 ([facility]) erosive esophagitis of the distal esophagus and gastric erythema (no pathololgy available for review) [facility] US 06/18/2019 IMPRESSION: Echogenic hepatic lesions consistent with hemangiomas are new. TTG IgA negative 10/14/2018 Fecal Calprotectin 10/19/2018 (H) 70.1 - she reports her biggest complaint is epigastric with liquids or solids - epigastric pain has been present for years - no worse - radiates around left flank and into back - feels like food just sits there - Debo has made a remarkable improvement in HB - c/o nausea, occasional emesis at HS phlegm - c/o early satiety - denies any weight loss - stools can alternate between formed and loose - denies any b (more content not included)... Normal [facility] Colonoscopy Reporton 025 Colonoscopy Report [facility] Medical Records Department [address] [place] [address] Colonoscopy Report MR#: [id number] Acct: [id number] Name: GHAZALA MARTIN Rep #: [id number] : 1990 34 From: Thony Stein DO PCP: GERHARD Lopez Status:DEP [facility] Patient Name: Ghazala Martin Procedure Date: 06/07/2024 11:28 AM Date of : 1990 Age: 34 Procedure: Colonoscopy Indications: Generalized abdominal pain, Abdominal pain in the left upper quadrant, Chronic diarrhea Providers: Thony Stein DO Referring MD: Haily Brown Medicines: Monitored Anesthesia Care Patient Profile: This is a 34 year old female. Refer to note in patient chart for documentation of history and physical. Patient has symptoms of chronic left upper quadrant abdominal pain, chronic dyspepsia and chronic nausea. Last Colonoscopy: none. The patient's first colonoscopy is today. Complications: No immediate complications. Procedure: Pre-Anesthesia Assessment: - Prior to the procedure, a History and Physical was performed, and patient medications and allergies were reviewed. The patient is competent. The risks and benefits of the procedure and the sedation options and risks were discussed with the patient. All questions were answered and informed consent was obtained. Patient identification and proposed procedure were verified in the pre-procedure area. Mental Status Examination: alert and oriented. Airway Examination: normal oropharyngeal airway and neck mobility. Respiratory Examination: clear to auscultation. CV Examination: normal. Prophylactic Antibiotics: The patient does not require prophylactic antibiotics. Prior Anticoagulants: The patient has taken no anticoagulant or antiplatelet agents except for NSAID medication. ASA Grade Assessment: II - A patient with mild systemic disease. After reviewing the risks and benefits, the patient was deemed in satisfactory condition to undergo the procedure. The anesthesia plan was to use monitored anesthesia care (MAC). Immediately prior to administration of medications, the patient was re-assessed for adequacy to receive sedatives. The heart rate, respiratory rate, oxygen saturations, blood pressure, adequacy of pulmonary ventilation, and response to care were monitored throughout the procedure. The physical status of the patient was re-assessed after the procedure. After I obtained informed consent, the scope was passed under direct vision. Throughout the procedure, the patient's blood pressure, pulse, and oxygen saturations were monitored continuously. The pediatric colonoscope was introduced through the anus and advanced to the terminal ileum. The colonoscopy was performed without difficulty. The patient tolerated the procedure well. The quality of the bowel preparation was adequate. The terminal ileum, ileocecal valve, appendiceal orifice, and rectum were photographed. Scope In: 11:29:57 AM Scope Withdrawal Time 0 hours 6 minutes 21 seconds Scope Out: 11:38:58 AM Total Procedure Duration Time 0 hours 9 minutes 1 second Findings: The perianal and digital rectal examinations were normal. The colon (entire examined portion) appeared normal. Patchy mild inflammation characterized by erythema was found in the terminal ileum. Biopsies were taken with a cold forceps for histology. Verification of patient identification for the specimen was done. Estimated blood loss was minimal. Impression: - The entire examined colon is normal. - Mild inflammation was found in the ileum secondary to ileitis. Biopsied. Recommendation: - Discharge patient to home. - Resume previous diet. - Continue present medications. - Await pathology results. - Repeat colonoscopy in 10 years for screening purposes. Procedure Code(s): --- Professional --- 92491, Colonoscopy, flexible; with biopsy, single or multiple CPT copyright 2021 [employer]. All rights reserved. The codes documented in this report are preliminary and upon manager planning review may be revised to meet current compliance requirements. Thony Stein DO 06/07/2024 11:47:52 AM This report has been signed electronically. Number of Addenda: 0 Note Initiated On: 06/07/2024 11:28 AM 06/07/24 1148 Date Thony Fernándezignalma Signature: Date (if indicated) CC: GERHARD Brown; Thony Stein DO Date Dictated: 06/07/24 1128 Date Transcribed: Rn Observation: DEVORA Signed Normal [facility] EGD Reporton 06-07-2024 EGD Report [facility] Medical Records Department [address] [place] [address] EGD Report MR#: [id number] Acct: [id number] Name: GHAZALA MARTIN Rep #: [id number] : 1990 34 From: Thony Stein DO PCP: GERHARD Lopez Status:DEP [facility] Patient Name: Ghazala Martin Procedure Date: 06/07/2024 11:18 AM Date of : 1990 Age: 34 Procedure: Upper GI endoscopy Indications: Epigastric abdominal pain, Abdominal pain in the left upper quadrant, Dyspepsia Providers: Thony Stein DO Referring MD: Haily Brown Medicines: Monitored Anesthesia Care Patient Profile: This is a 34 year old female. Refer to note in patient chart for documentation of history and physical. Patient has symptoms of chronic left upper quadrant abdominal pain, chronic dyspepsia and chronic nausea. Complications: No immediate complications. Procedure: Pre-Anesthesia Assessment: - Prior to the procedure, a History and Physical was performed, and patient medications and allergies were reviewed. The patient is competent. The risks and benefits of the procedure and the sedation options and risks were discussed with the patient. All questions were answered and informed consent was obtained. Patient identification and proposed procedure were verified in the pre-procedure area. Mental Status Examination: alert and oriented. Airway Examination: normal oropharyngeal airway and neck mobility. Respiratory Examination: clear to auscultation. CV Examination: normal. Prophylactic Antibiotics: The patient does not require prophylactic antibiotics. Prior Anticoagulants: The patient has taken no anticoagulant or antiplatelet agents except for NSAID medication. ASA Grade Assessment: II - A patient with mild systemic disease. After reviewing the risks and benefits, the patient was deemed in satisfactory condition to undergo the procedure. The anesthesia plan was to use monitored anesthesia care (MAC). Immediately prior to administration of medications, the patient was re-assessed for adequacy to receive sedatives. The heart rate, respiratory rate, oxygen saturations, blood pressure, adequacy of pulmonary ventilation, and response to care were monitored throughout the procedure. The physical status of the patient was re-assessed after the procedure. After obtaining informed consent, the endoscope was passed under direct vision. Throughout the procedure, the patient's blood pressure, pulse, and oxygen saturations were monitored continuously. The pediatric colonoscope was introduced through the mouth, and advanced to the second part of duodenum. The upper GI endoscopy was accomplished without difficulty. The patient tolerated the procedure well. Scope In: 11:25:16 AM Scope Out: 11:28:13 AM Total Procedure Duration Time 0 hours 2 minutes 57 seconds Findings: The examined esophagus was normal. A small hiatal hernia was present. Patchy mildly erythematous mucosa without bleeding was found in the gastric body. Biopsies were taken with a cold forceps for histology. Verification of patient identification for the specimen was done. Estimated blood loss was minimal. Biopsies were taken with a cold forceps for Helicobacter pylori testing. Verification of patient identification for the specimen was done. Estimated blood loss was minimal. The second portion of the duodenum was normal. Biopsies were taken with a cold forceps for histology. Verification of patient identification for the specimen was done. Estimated blood loss was minimal. Multiple 9 mm hyperplastic polyps with no bleeding and no stigmata of recent bleeding were found in the gastric fundus and on the greater curvature of the stomach. Impression: - Normal esophagus. - Small hiatal hernia. - Erythematous mucosa in the gastric body. Biopsied. - Normal second portion of the duodenum. Biopsied. Recommendation: - Discharge patient to home (ambulatory). - Continue present medications. Procedure Code(s): --- Professional --- 88325, Esophagogastroduodenoscopy, flexible, transoral; with biopsy, single or multiple CPT copyright 2021 [employer]. All rights reserved. The codes documented in this report are preliminary and upon manager planning review may be revised to meet current compliance requirements. Thony Stein DO 06/07/2024 11:45:35 AM This report has been signed electronically. Number of Addenda: 0 Note Initiated On: 06/07/2024 11:18 AM 06/07/24 1145 Date Thony Stein DO Cosigner Signature: Date (if indicated) CC: GERHARD Brown; Thony Stein, Date Dictated: 06/07/24 1118 Date Transcribed: Rn Observation: DEVORA Signed Normal [facility] H Pylori (initial)on H Pylori (initial) ------- Patient Age/Sex Location Account Attending Physician GHAZALA MARTIN 34/F EN [id number] Thony Stein, Specimen: [id number] Received: 06/07/24 Status: SARA Michele Num: [id number] Spec Type: IMMUNO Subm Dr: Thony Stein DO PHYSICIAN INSTITUTION [place] [address] SPECIMEN INFORMATION: Tissue Source: B- Gastric body polyp Clinical Info: Diarrhea, left upper quadrant pain, nausea Specimen Number: [id number] CPT code: 14720 METHODOLOGY: Deparaffinized sections of prefer/formalin-fixed tissue or PAP/DQ stained slides are incubated with monoclonal/polyclonal antibodies/oligonucleotide probes. Localization is made via biotin free immunoperoxidase method. Appropriate controls are performed and reacted as expected. Results on target cell population are indicated in the following table: RESULTS: ANTIBODY / CLONE RESULT Block B H Pylori (polyclonal) negative These tests were developed and their performance characteristics determined by [facility]. They may not have been cleared or approved by the U.S. Food and Drug Administration. The FDA has determined that such clearance or approval is not necessary. The above immunohistochemical/dualISH markers are ordered and reviewed by the Pathologist. INTERPRETATION: B. Gastric body, biopsy: Negative for Helicobacter pylori organisms. 06/08/2024 Signed (signature on file) Dr. Sourav Cervantes MD 06/08/24 1314 Normal [facility] Comment on above: Performed By: #### P H.PYLORI #### [facility] [address] [place], [address] MR/POSTOP.Caroline 06-07-2024 MR/POSTOP.[facility] Medical Records Department [address] [place] [address] Anesthesia Postop Eval I 06/07/24 1148 MR#: [id number] Acct: [id number] Name: GHAZALA MARTIN Rep #: [id number] : 1990 34 From: Aashish Bach PCP: GERHARD Lopez Status:DEP SDC Y Race: C Location: EN Anesthesia: Postop Eval I Current Vital Signs Temperature: 97.2 F Pulse Rate: 82 Blood Pressure: 113/84 Respiratory Rate: 16 Pulse Ox: 100 Oxygen Delivery Method: Room Air Assessment Airway patent: Yes Spontaneous unlabored respirations: Yes Mental status: Awake and Calm nausea: No Vomiting: No Anesthesia Complication: No Fluid Hydration Crystalloid volume administer (ml): 60 Total IV fluid infused: 60 Progress Note Anesthesia document: Postop Eval 1 completed: Yes 06/07/24 1149 Date Aashish Schwartzigner Signature: Date CC: Signed Normal [facility] MR/HPCSOJNV7pi 06-07-2024 [facility] Medical Records Department [address] [place] [address] Anesthesia Postop Eval II 06/07/24 1213 MR#: [id number] Acct: [id number] Name: GHAZALA MARTIN Rep #: [id number] : 1990 34 From: Cal Elizondo MD PCP: GERHARD Lopez Status:[facility] Y Race: C Location: EN Anesthesia Postop Eval I Sum Postop Eval Completion status Anesthesia document: Postop Eval 1 completed: Yes Anesthesia Postop Eval I Summary Anesthesia Postop Eval I Summary: Anesthesia Postop Eval I: Assessment Summary Airway patent Yes 06/07/24 11:49 [email or web address] Spontaneous unlabored Yes 06/07/24 11:49 [email or web address] respirations Mental status Awake,Calm 06/07/24 11:49 [email or web address] nausea No 06/07/24 11:49 [email or web address] Vomiting No 06/07/24 11:49 [email or web address] Anesthesia Postop Eval I: Fluid Summary Crystalloid volume administer 60 06/07/24 11:49 [email or web address] (ml) Colloids volume administered ( ml) Blood Product volume administered (ml) Total IV fluid infused 60 06/07/24 11:49 [email or web address] Anesthesia Postop Eval I: Summary Notes Anesthesia Complication No 06/07/24 11:49 [email or web address] Anesthesia Complication Comment: Post-operative progress note Anesthesia: Postop Eval II Evaluation Mental status: Awake Pain Level: 0 nausea: No Vomiting: No 06/07/24 1213 Date Cal Hernandez Signature: Date CC: Signed Normal [facility] Surgery Specimen Level Alfonso 06-07-2024 Surgery Specimen Level IV Patient Age/Sex Location Account Attending Physician GHAZALA MARTIN 34/F EN [id number] Thony Stein DO Specimen: [id number] Received: 06/07/24 Status: SARA Michele Num: [id number] Spec Type: Gastric Bx Subm Dr: Thony Stein DO HEADER OPERATION: Colonoscopy, EGD with biopsy and polypectomy PRE-OP DIAGNOSIS: Diarrhea, left upper quadrant pain, nausea TISSUE SUBMITTED: A- Duodenum biopsy, B- Gastric body polyp, C- Terminal ileum biopsy MICROSCOPIC DIAGNOSIS A. Duodenum, biopsy: Fragments of duodenal mucosa with mild Patric's gland hyperplasia. B. Gastric body polyp, polypectomy: Mild gastritis. See microscopic description and comment. C. Terminal ileum, biopsy: Fragments of small intestinal mucosa, no pathologic diagnosis. See comment. SJ.mr 06/08/2024 COMMENT B. The results of immunohistochemistry for Helicobacter pylori will be reported separately ([id number]). C. Prominent lymphoid aggregates are noted. MICROSCOPIC DESCRIPTION Slides are reviewed. B. The specimen shows fragments of gastric mucosa with chronic inflammatory cell infiltrates in the lamina propria consisting of lymphocytes and plasma cells, consistent with mild chronic gastritis. Changes consistent with hyperplastic polyp or fundic gland polyp are not seen. GROSS DESCRIPTION A. Received in fixative is one container labeled with the patient's name and designated Duodenum biopsy. The specimen consists of two irregular fragments of light bernal soft tissue that in aggregate measure 1.3 x 0.3 x 0.1 cm. The specimen is totally submitted in one cassette. B. Received in fixative is one container labeled with the patient's name and designated Gastric body biopsy. The specimen consists of two irregular fragments of light bernal soft tissue that in aggregate measure 0.8 x 0.3 x 0.1 cm. The specimen is totally submitted in one cassette. C. Received in fixative is one container labeled with the patient's name and designated Terminal ileum biopsy. The specimen consists of multiple irregular fragments of light bernal Patient Age/Sex Location Account Attending Physician GHAZALA MARTIN 34/F EN [id number] Thony Stein DO soft tissue that in aggregate measure 1.7 x 0.3 x 0.1 cm. The specimen is totally submitted in one cassette. 06/07/2024 TC:3 CPT:57418a4 Patient Age/Sex Location Account Attending Physician JOSAFATGHAZALA SAUER 34/F EN [id number] Thonykain Stein DO Signed (signature on file) Dr. Sourav Cervantes MD 06/08/24 1255 Normal [facility] Comment on above: Performed By: #### P SHANNAN ####[facility] [address] [place], [address] Gastroenterology Visit Repor ton 06-03-2024 Gastroenterology Visit Report [facility] [address] [place] [address] OFFICE VISIT Date of Service: 06/03/24 MR#: [id number] Acct: [id number] Name: GHAZALA MARTIN Rep #: [id number] : 1990 Provider: GERHARD lorenzo Age/Sex: 34/F Location: [facility] Status: Signed Intake Vital Signs 04/06/24 06:37 06/03/24 14:52 Height 5 ft 3 in 5 ft 3 in Weight: 187 lb 2 oz BMI 33.1 BP 120/86 H Respiration 16 Pulse 87 Pulse Oximetry (%) 96 Oxygen Delivery Method room air Intake Visit Reasons: follow up Chief Complaint: pain Allergies Pork/Porcine Containing Products Allergy (Intermediate, Verified 06/07/24 09:27) Other Medications ???Medication ???Instructions ???Recorded ???Confirmed ???Type cholecalciferol (vitamin D3) 1,250 1,250 mcg PO QMONTH 06/27/2202/19 History mcg (50,000 unit) capsule duloxetine 20 mg capsule,delayed 40 mg PO QHS 06/27/22 06/07/24 His tory release zolpidem 5 mg tablet 5 mg PO QHS PRN sleep 06/27/2202/19 History ascorbic acid (vitamin C) 250 mg 250 mg PO QDAY 03/29/24 06/07/24 H istory tablet estradiol 0.01% (0.1 mg/gram) 1 g vaginal 2XW 03/29/24 06/07/24 History vaginal cream (Estrace) estradiol 2 mg tablet 2 mg PO QDAY 03/29/24 06/07/24 His tory magnesium glycinate 200 mg PO DAILY 03/29/24 06/07/24 History vitamin E 100 unit tablet 100 unit PO DAILY 03/29/24 5 History vonoprazan 20 mg tablet (Voquezna) 20 mg PO QDAY erosive esophagiti s 06/09/24 Rx #30 tabs PFSH Medical History History of Crohn's disease Heartburn Wears glasses History of renal disease Restless legs Gastric reflux Non-smoker Thyroid antibody positive Thyroglobulin antibody positive Fatigue Diarrhea GERD (gastroesophageal reflux disease) Anxiety and depression Fibromyalgia Erosive esophagitis Abdominal pain Surgical History History of myringotomy Hx of colonoscopy History of esophagogastroduodenoscopy (EGD) History of tonsillectomy and adenoidectomy Previous section Hx of cholecystectomy H/O dilation and curettage H/O: hysterectomy Family History Mother Asthma Cancer Diabetes Fibromyalgia Heart disease Hypertension Depression Lupus Rheumatoid arthritis Father Diabetes Hypertension Grandmother Cancer breast Breast cancer Depression Other CVA (cerebral vascular accident) Endometriosis Seizures Thyroid disorder Social History Smoking Status: Never smoker alcohol intake: never HPI HPI Chief Complaint: pain Details: GHAZALA MARTIN, is a 34 F who presents to the office today for PORTAL MESSAGE 05/30/2024 Good morning, I just wanted to give an update from being on the Xifaxan. I seen an increase in diarrhea while on it the first 5-6 days and have not noticed any difference in my stomach pain with an increase in pain in the lower left abdomen and still experiencing pain in the upper middle and left abdomen. For instance the last 2 days I've had increased pain in those areas with swelling throughout my body and blurred vision and headaches and fatigue which is typical signs when I'm having these stomach pains. I am scheduled for the scopes next Friday with hopes to some answers. Thank you fornyour time! Ghazala OV 03/29/2025 3y/o female referred by Haily Brown CNP for complaints of GERD and abdominal pain. CBC and CMP were unremarkable 03/08/2024. Records review reveals an unremarkable colonosocpy in 2016, mildly elevated fecal calprotectin (70.1) 2018, negative TTG IgA 2018, ABD US revealing for hepatic hemangiomas 2019, EGD with erosive esophagitis 2021, CTE suggestive of mild mucosal enhancement the last 7-8cm of ileum and sigmoid colon. PMH significant for fibromyalgia, GERD, IBS-D, and CKD3a. She complains of chronic GERD presently uncontrolled with rabeprazole and reports previously failing omeprazole, esomeprazole and lansoprazole. She complains of burning chest pain which radiates thorugh to her back with esophageal burning to mouth, cough at HS and occasional bile emesis. She c/o intractable nausea limiting her PO intake without weight loss. PMH is significant for CCX and she does experience intermittent diarrhea, previously failed Welchol. She denies following a GFD but reports previously testing with carpet mechanic revealed allergy to wheat, oats and celery and avoids these foods 90% of the time. I have switched PPI to PCAB and we will plan to repeat EGD. In terms of diarrhea and previously elevated calprotectin and abnormal CTE, I have ordered labs, stool testing and will ar (more content not included)... Normal [facility] Absolute neutrophil countOrd ered By: Carolyn Sanches on 06-02-2024 Neutrophils (Bld) [#/Vol] 7.0 10*3/uL 2.0-7.7 [facility] Albumin to globulin ratioOrd ered By: Carolyn Sanches on 06-02-2024 Albumin/Globulin [Mass ratio] 1.1 {ratio} 0.9-2.4 [facility] Amylaseon 06-02-2024 ROSELYN 50 U/L Normal 25-115 [facility] Comment on above: Performed By: #### L 501.6710, L500.4050, L100.0100, L501.2400, L501.2450 ####[facility] [address] [place], [address] Basophil percentageOrdered B y: Carolyn Sanches on 06-02-2024 Basophils/100 WBC (Bld) 0.6 % 0-1 [facility] Bilirubin, totalOrdered By: Carolyn Sanches on 06-02-2024 Bilirubin [Mass/Vol] 0.30 mg/dL 0.20-1.00 [facility] Comment on above: For patients on eltr ombopag therapy, use of Dimension [place] TBIL is not recommended. Blood urea nitrogen (BUN)/cr eatinine ratioOrdered By: Carolyn Sanches on 06-02-2024 Urea nitrogen/Creatinine [Mass ratio] 14.3 mg/mg 10-20 [facility] C-reactive protein measureme nt by high sensitivity methodOrdered By: Carolyn Sanches on 06-02-2024 C-Reactive Protein Extended Range 6.17 mg/L High 0.0-3.0 [facility] Comment on above: C-Reactive Protein ( CRP) provides useful information for thediagnosis, therapy and monitoring of inflammatory processesand associated diseases. For the evaluation of Relative Riskfor Cardiovascular Disease, a High Sensitivity CRP (HSCRP)should be ordered. CBC W/Diff, Automatedon Absolute Lymph 1.91 X10 3/uL Normal 0.83-4.51 [facility] Comment on above: Performed By: #### L 501.6710, L500.4050, L100.0100, L501.2400, L501.2450 ####[facility] [address] [place], [address] Absolute Neut 7.0 X10 3/uL Normal 2.0-7.7 [facility] Comment on above: Performed By: #### L 501.6710, L500.4050, L100.0100, L501.2400, L501.2450 ####[facility] [address] [place], [address] Basophils/100 WBC (Bld) 0.6 % Normal 0-1 [facility] Comment on above: Performed By: #### L 501.6710, L500.4050, L100.0100, L501.2400, L501.2450 ####[facility] [address] [place], [address] Eosinophils/100 WBC (Bld) 1.4 % Normal 0-5 [facility] Comment on above: Performed By: #### L 501.6710, L500.4050, L100.0100, L501.2400, L501.2450 ####[facility] [address] [place], [address] Erythrocyte distribution width (RBC) [Ratio] 11.7 % Normal 11.6-14.6 [facility] Comment on above: Performed By: #### L 501.6710, L500.4050, L100.0100, L501.2400, L501.2450 ####[facility] [address] [place], [address] Hematocrit (Bld) [Volume fraction] 43.8 % Normal 37-47 [facility] Comment on above: Performed By: #### L 501.6710, L500.4050, L100.0100, L501.2400, L501.2450 ####[facility] [address] [place], [address] Hemoglobin (Bld) [Mass/Vol] 14.6 g/dL Normal 12.0-15.0 [facility] Comment on above: Performed By: #### L 501.6710, L500.4050, L100.0100, L501.2400, L501.2450 ####[facility] [address] [place], [address] IG% 0.400 Normal 0.0-0.9 [facility] Comment on above: Result Comment: IG% - Immature Granulocytes (promyelocytes, myelocytes and metamyelocytes) > 1% indicates that a LEFT SHIFT is Present. Performed By: #### L 501.6710, L500.4050, L100.0100, L501.2400, L501.2450 ####[facility] [address] [place], [address] Lymphocytes/100 WBC (Bld) 19.7 % Normal 19-41 [facility] Comment on above: Performed By: #### L 501.6710, L500.4050, L100.0100, L501.2400, L501.2450 ####[facility] [address] [place], [address] MCH (RBC) [Entitic mass] 30.2 pg Normal 27.0-32.0 [facility] Comment on above: Performed By: #### L 501.6710, L500.4050, L100.0100, L501.2400, L501.2450 ####[facility] [address] [place], [address] MCHC (RBC) [Mass/Vol] 33.3 g/dL Normal 32-36 [facility] Comment on above: Performed By: #### L 501.6710, L500.4050, L100.0100, L501.2400, L501.2450 ####[facility] [address] [place], [address] MCV (RBC) [Entitic vol] 90.7 fL Normal 81-99 [facility] Comment on above: Performed By: #### L 501.6710, L500.4050, L100.0100, L501.2400, L501.2450 ####[facility] [address] [place], [address] Monocytes/100 WBC (Bld) 5.8 % Normal 0-10 [facility] Comment on above: Performed By: #### L 501.6710, L500.4050, L100.0100, L501.2400, L501.2450 ####[facility] [address] [place], [address] Neutrophils/100 WBC (Bld) 72.1 % High 47-70 [facility] Comment on above: Performed By: #### L 501.6710, L500.4050, L100.0100, L501.2400, L501.2450 ####[facility] [address] [place], [address] Nucleated RBC (Bld) [#/Vol] 0 10*3/uL Normal 0-5 [facility] Comment on above: Performed By: #### L 501.6710, L500.4050, L100.0100, L501.2400, L501.2450 ####[facility] [address] [place], [address] Platelet mean volume (Bld) [Entitic vol] 8.9 fL Normal 6.2-12.0 [facility] Comment on above: Performed By: #### L 501.6710, L500.4050, L100.0100, L501.2400, L501.2450 ####[facility] [address] [place], [address] Platelets (Bld) [#/Vol] 309 10*3/uL Normal 150-450 [facility] Comment on above: Performed By: #### L 501.6710, L500.4050, L100.0100, L501.2400, L501.2450 ####[facility] [address] [place], [address] RBC (Bld) [#/Vol] 4.83 10*6/uL Normal 4.2-5.4 [facility] Comment on above: Performed By: #### L 501.6710, L500.4050, L100.0100, L501.2400, L501.2450 ####[facility] [address] [place], [address] RDW SD 38.5 fl Normal 35.1-43.9 [facility] Comment on above: Performed By: #### L 501.6710, L500.4050, L100.0100, L501.2400, L501.2450 ####[facility] [address] [place], [address] WBC (Bld) [#/Vol] 9.7 10*3/uL Normal 4.4-11.0 [facility] Comment on above: Performed By: #### L 501.6710, L500.4050, L100.0100, L501.2400, L501.2450 ####[facility] [address] [place], [address] CRPon 06-02-2024 C-REACTIVE PROT 6.17 mg/L High 0.0-3.0 [facility] Comment on above: Result Comment: C-Re active Protein (CRP) provides useful information for the diagnosis, therapy and monitoring of inflammatory processes and associated diseases. For the evaluation of Relative Risk for Cardiovascular Disease, a High Sensitivity CRP (HSCRP) should be ordered. Performed By: #### L 501.6710, L500.4050, L100.0100, L501.2400, L501.2450 ####[facility] [address] [place], [address] [place] dioxide measurementOr dered By: Carolyn Sanches on 06-02-2024 CO2 [Moles/Vol] 28.0 mmol/L 21.0-32.0 [facility] Chloride measurementOrdered By: Carolyn Sanches on 06-02-2024 Chloride [Moles/Vol] 107 mmol/L 98-107 [facility] Comprehensive Metabolic Prof ilon 06-02-2024 Albumin [Mass/Vol] 3.6 g/dL Normal 3.2-5.0 [facility] Comment on above: Performed By: #### L 501.6710, L500.4050, L100.0100, L501.2400, L501.2450 ####[facility] [address] [place], [address] Albumin/Globulin [Mass ratio] 1.1 {ratio} Normal 0.9-2.4 [facility] Comment on above: Performed By: #### L 501.6710, L500.4050, L100.0100, L501.2400, L501.2450 ####[facility] [address] [place], [address] ALK P 68 U/L Normal 45-117 [facility] Comment on above: Performed By: #### L 501.6710, L500.4050, L100.0100, L501.2400, L501.2450 ####[facility] [address] [place], [address] ALT [Catalytic activity/Vol] 26 U/L Normal 13-56 [facility] Comment on above: Performed By: #### L 501.6710, L500.4050, L100.0100, L501.2400, L501.2450 ####[facility] [address] [place], [address] AST [Catalytic activity/Vol] 21 U/L Normal 15-37 [facility] Comment on above: Performed By: #### L 501.6710, L500.4050, L100.0100, L501.2400, L501.2450 ####[facility] [address] [place], [address] Bilirubin [Mass/Vol] 0.30 mg/dL Normal 0.20-1.00 [facility] Comment on above: Result Comment: For patients on eltrombopag therapy, use of Dimension [place] TBIL is not recommended. Performed By: #### L 501.6710, L500.4050, L100.0100, L501.2400, L501.2450 ####[facility] [address] [place], [address] BUN/CRE 14.3 RATIO Normal 10-20 [facility] Comment on above: Performed By: #### L 501.6710, L500.4050, L100.0100, L501.2400, L501.2450 ####[facility] [address] [place], [address] CA,Total 8.7 mg/dL Normal 8.5-10.1 [facility] Comment on above: Performed By: #### L 501.6710, L500.4050, L100.0100, L501.2400, L501.2450 ####[facility] [address] [place], [address] Chloride [Moles/Vol] 107 mmol/L Normal 98-107 [facility] Comment on above: Performed By: #### L 501.6710, L500.4050, L100.0100, L501.2400, L501.2450 ####[facility] [address] [place], [address] CO2 [Moles/Vol] 28.0 mmol/L Normal 21.0-32.0 [facility] Comment on above: Performed By: #### L 501.6710, L500.4050, L100.0100, L501.2400, L501.2450 ####[facility] [address] [place], [address] Creatinine [Mass/Vol] 1.05 mg/dL High 0.55-1.02 [facility] Comment on above: Result Comment: The validity of the calculated GFR GFRAA in patients over 70 years has not been determined. Clinical correlation is essential. Performed By: #### L 501.6710, L500.4050, L100.0100, L501.2400, L501.2450 ####[facility] [address] [place], [address] EST GFR - AA 76 mL/min Normal >60 [facility] Comment on above: Result Comment: Afri can Tunisian GFR Calc Performed By: #### L 501.6710, L500.4050, L100.0100, L501.2400, L501.2450 ####[facility] [address] [place], [address] GAP 5 Normal 5-15 [facility] Comment on above: Performed By: #### L 501.6710, L500.4050, L100.0100, L501.2400, L501.2450 ####[facility] [address] [place], [address] GFR/1.73 sq M.predicted among non-blacks MDRD (S/P/Bld) [Vol rate/Area] 63 mL/min/{1.73_m2} Normal >60 [facility] Comment on above: Result Comment: Non- GFR Calc Performed By: #### L 501.6710, L500.4050, L100.0100, L501.2400, L501.2450 ####[facility] [address] [place], [address] Globulin (S) [Mass/Vol] 3.4 g/dL Normal 2.2-4.2 [facility] Comment on above: Performed By: #### L 501.6710, L500.4050, L100.0100, L501.2400, L501.2450 ####[facility] [address] [place], [address] Glucose [Mass/Vol] 102 mg/dL Normal 74-106 [facility] Comment on above: Result Comment: Fast ing Glucose result from 100 to 125 mg/dL suggests IMPAIRED HOMEOSTASIS per A.D.A. criteria. Performed By: #### L 501.6710, L500.4050, L100.0100, L501.2400, L501.2450 ####[facility] [address] [place], [address] Potassium [Moles/Vol] 4.5 mmol/L Normal 3.5-5.1 [facility] Comment on above: Performed By: #### L 501.6710, L500.4050, L100.0100, L501.2400, L501.2450 ####[facility] [address] [place], [address] Sodium [Moles/Vol] 140 mmol/L Normal 136-145 [facility] Comment on above: Performed By: #### L 501.6710, L500.4050, L100.0100, L501.2400, L501.2450 ####[facility] [address] [place], [address] T PROT 7.0 g/dL Normal 6.4-8.2 [facility] Comment on above: Performed By: #### L 501.6710, L500.4050, L100.0100, L501.2400, L501.2450 ####[facility] [address] [place], [address] Urea nitrogen [Mass/Vol] 15 mg/dL Normal 7-18 [facility] Comment on above: Performed By: #### L 501.6710, L500.4050, L100.0100, L501.2400, L501.2450 ####[facility] [address] [place], [address] Eosinophil percentageOrdered By: Carolyn Sanches on 06-02-2024 Eosinophils/100 WBC (Bld) 1.4 % 0-5 [facility] Erythrocyte distribution wid th (RBC) [Ratio]Ordered By: Carolyn Sanches on 06-02-2024 Erythrocyte distribution width (RBC) [Entitic vol] 38.5 fL 35.1-43.9 [facility] Erythrocyte distribution wid th ratioOrdered By: Carolyn Sanches on 06-02-2024 Erythrocyte distribution width (RBC) [Ratio] 11.7 % 11.6-14.6 [facility] Estimated glomerular filtrat ion rate (GFR) AmericanOrdered By: Carolyn Sanches on 06-02-2024 Estimated GFR (MDRD) Amer 76 mL/min >60 [facility] Comment on above: GFR Calc Glomerular filtration rate ( GFR) estimationOrdered By: Carolyn Sanches on 06-02-2024 Estimated GFR (MDRD) Non-Af Amer 63 mL/min >60 [facility] Comment on above: Non- GFR Calc Glucose measurementOrdered B y: Carolyn Sanches on 06-02-2024 Glucose [Mass/Vol] 102 mg/dL 74-106 [facility] Comment on above: Fasting Glucose resu lt from 100 to 125 mg/dL suggests IMPAIRED HOMEOSTASIS per A.D.A. criteria. Hematocrit Auto (Bld) [Volum e fraction]Ordered By: Carolyn Sanches on 06-02-2024 Hematocrit (Bld) [Volume fraction] 43.8 % 37-47 [facility] Hemoglobin measurementOrdere d By: Carolyn Sanches on 06-02-2024 Hemoglobin (Bld) [Mass/Vol] 14.6 g/dL 12.0-15.0 [facility] Immature granulocytes/100 WB C Auto (Bld)Ordered By: Carolyn Sanches on 06-02-2024 Immature granulocytes/100 WBC (Bld) 0.400 % 0.0-0.9 [facility] Comment on above: IG% - Immature Granu locytes (promyelocytes, myelocytes and metamyelocytes) > 1% indicates that a LEFT SHIFT is Present. Laboratory - Chemistry and C hemistry - challengeOrdered By: Carolyn Sanches on 06-02-2024 AST [Catalytic activity/Vol] 21 U/L 15-37 [facility] Lipaseon 06-02-2024 Lipase [Catalytic activity/Vol] 30 U/L Normal 13-75 [facility] Comment on above: Result Comment: Plea se note: LIPASE revised reference range effective 22. New Lipase methodology. Expected to produce lower values than the previous assay method. NEW Reference Range: 13 - 75 U/L Performed By: #### L 501.6710, L500.4050, L100.0100, L501.2400, L501.2450 ####[facility] [address] [place], [address] Lipase measurementOrdered By : Carolyn Sanches on 06-02-2024 Lipase [Catalytic activity/Vol] 30 U/L 13-75 [facility] Comment on above: Please note:LIPASE r evised reference range effective 22. New Lipase methodology. Expected to produce lower values than the previous assay method. NEW Reference Range: 13 - 75 U/L Lymphocytes Auto (Unsp spec) [#/Vol]Ordered By: Carolyn Sanches on 06-02-2024 Lymphocytes (Bld) [#/Vol] 1.91 10*3/uL 0.83-4.51 [facility] Lymphocytes/100 WBC Auto (Un sp spec)Ordered By: Carolyn Sanches on 06-02-2024 Lymphocytes/100 WBC (Bld) 19.7 % 19-41 [facility] MCV (mean corpuscular volume ) determinationOrdered By: Carolyn Sanches on 06-02-2024 MCV (RBC) [Entitic vol] 90.7 fL 81-99 [facility] Mean corpuscular hemoglobin (MCH) determinationOrdered By: Carolyn Sanches on 06-02-2024 MCH (RBC) [Entitic mass] 30.2 pg 27.0-32.0 [facility] Mean corpuscular hemoglobin concentration (MCHC) determinationOrdered By: Carolyn Sanches on 06-02-2024 MCHC (RBC) [Mass/Vol] 33.3 g/dL 32-36 [facility] Mean platelet volume determi nationOrdered By: Carolyn Sanches on 06-02-2024 Platelet mean volume (Bld) [Entitic vol] 8.9 fL 6.2-12.0 [facility] Monocyte percentageOrdered B y: Carolyn Sanches on 06-02-2024 Monocytes/100 WBC (Bld) 5.8 % 0-10 [facility] Neutrophil percentageOrdered By: Carolyn Sanches on 06-02-2024 Neutrophils/100 WBC (Bld) 72.1 % High 47-70 [facility] Nucleated red blood cell per centageOrdered By: Carolyn Sanches on 06-02-2024 Nucleated RBC/100 WBC (Bld) [Ratio] 0 % 0-5 [facility] Platelet countOrdered By: Payam Sanches on 06-02-2024 Platelets (Bld) [#/Vol] 309 10*3/uL 150-450 [facility] Potassium measurementOrdered By: Carolyn Sanches on 06-02-2024 Potassium [Moles/Vol] 4.5 mmol/L 3.5-5.1 [facility] RBC Auto (Bld) [#/Vol]Ordere d By: Carolyn Sanches on 06-02-2024 RBC (Bld) [#/Vol] 4.83 10*6/uL 4.2-5.4 [facility] Serum anion gap measurementO rdered By: Carolyn Sanches on 06-02-2024 Anion gap [Moles/Vol] 5 mmol/L 5-15 [facility] Serum globulin measurementOr dered By: Carolyn Sanches on 06-02-2024 Globulin (S) [Mass/Vol] 3.4 g/dL 2.2-4.2 [facility] Serum or plasma alanine luke otransferase (ALT) measurementOrdered By: Carolyn Sanches on 06-02-2024 ALT [Catalytic activity/Vol] 26 U/L 13-56 [facility] Serum or plasma albumin gordon urement (mass/volume)Ordered By: Carolyn Sanches on 06-02-2024 Albumin [Mass/Vol] 3.6 g/dL 3.2-5.0 [facility] Serum or plasma alkaline ganga sphatase measurementOrdered By: Carolyn Sanches on 06-02-2024 ALP [Catalytic activity/Vol] 68 U/L 45-117 [facility] Serum or plasma amylase gordon urement (enzymatic activity/volume)Ordered By: Carolyn Sanches on 06-02-2024 Amylase [Catalytic activity/Vol] 50 U/L 25-115 [facility] Serum or plasma calcium gordon urement (mass/volume)Ordered By: Carolyn Sanches on 06-02-2024 Calcium [Mass/Vol] 8.7 mg/dL 8.5-10.1 [facility] Serum or plasma creatinine m easurement (mass/volume)Ordered By: Carolyn Sanches on 06-02-2024 Creatinine [Mass/Vol] 1.05 mg/dL High 0.55-1.02 [facility] Comment on above: The validity of the calculated GFR & GFRAA in patients over 70 years has not been determined. Clinical correlation is essential. Serum or plasma urea nitroge n measurement (mass/volume)Ordered By: Carolyn Sanches on 06-02-2024 Urea nitrogen [Mass/Vol] 15 mg/dL 7-18 [facility] Sodium levelOrdered By: Rita Sanches on 06-02-2024 Sodium [Moles/Vol] 140 mmol/L 136-145 [facility] Total proteinOrdered By: Umu Sanches on 06-02-2024 Protein [Mass/Vol] 7.0 g/dL 6.4-8.2 [facility] White blood cell (WBC) count Ordered By: Carolyn Sanches on 06-02-2024 WBC (Bld) [#/Vol] 9.7 10*3/uL 4.4-11.0 [facility] Discharge Instructionon 12- Discharge Instruction [facility] Medical Records Department [address] [place] [address] Instructions for Home/Discharge Instructions 04/06/24 07 MR#: [id number] Acct: [id number] Name: GHAZALA MARTIN Rep #: [id number] : 1990 33 From: Cezar Joel MD PCP: GERHARD Lopez Status:[facility] Discharge Instructions Diet Discharge Diet: No restrictions DC O2, CPAP, BIPAP needs Additional Home O2 Discharge instructions: No Dressing / Incision Discharge Activity: Return to Normal Activity Dressing / Incision Call your doctor if your incision/area has: Foul Smelling Discharge Follow Up Care Please Follow Up With: Cezar Joel MD When: 3 weeks Test Results: Test results from this visit will be discussed in further detail at your follow-up appointment, if applicable. Discharge Plan Admission Attending Provider: Cezar Joel Primary Care Provider: Haily Brown NP Instructions Print Language: South [place]ese Discharge Orders/Prescriptions Prescriptions: No Action duloxetine 20 mg capsule,delayed release(DR/EC) 40 mg PO QHS cholecalciferol (vitamin D3) 1,250 mcg (50,000 unit) capsule 1,250 mcg PO QMONTH zolpidem 5 mg tablet 5 mg PO QHS PRN (Reason: sleep) ascorbic acid (vitamin C) 250 mg tablet 250 mg PO QDAY estradiol [Estrace] 0.01 % (0.1 mg/gram) cream 1 g vaginal 2XW magnesium glycinate 100 mg magnesium capsule 200 mg PO DAILY estradiol 2 mg tablet 2 mg PO QDAY vitamin E 100 unit tablet 100 unit PO DAILY Voquezna 20 mg tablet 20 mg PO QDAY Qty: 30 1RF Referrals / Follow Up: Haily Brown NP, PRODUCT DEVELOPMENT SPECIALIST-C [Primary Care Provider] - Disposition Disposition (needs filled in before D/C Order can be placed): Home, Self Care 04/06/24727 Cezar Joel MD CC: PRODUCT DEVELOPMENT SPECIALIST-C Haily Brown Signed Normal [facility] MR/POSTOP.ANEnydia 04-06-2024 MR/POSTOP.[facility] Medical Records Department [address] [place] [address] Anesthesia Postop Eval I 04/06/24 0758 MR#: [id number] Acct: [id number] Name: GHAZALA MARTIN Rep #: [id number] : 1990 33 From: Florence Soto PCP: GERHARD Lopez Status:[facility] Y Race: C Location: [facility] Anesthesia: Postop Eval I Current Vital Signs Temperature: 97.4 F Pulse Rate: 100 Blood Pressure: 118/77 Respiratory Rate: 20 Pulse Ox: 99 Oxygen Delivery Method: Nasal Cannula Oxygen Flow Rate (L/min): 2 Assessment Airway patent: Yes Spontaneous unlabored respirations: Yes Mental status: Awake and Apprehensive nausea: No Vomiting: No Anesthesia Complication: No Fluid Hydration Crystalloid volume administer (ml): 500 Total IV fluid infused: 500 Progress Note Anesthesia document: Postop Eval 1 completed: Yes 04/06/24 075 Date Florence Hernandez Signature: Date CC: Signed Normal [facility] MR/SLAUOKYT5mm 04-06-2024 [facility] Medical Records Department [address] [place] [address] Anesthesia Postop Eval II 04/06/24 0913 MR#: [id number] Acct: [id number] Name: GHAZALA MARTIN Rep #: [id number] : 1990 33 From: Cal Elizondo MD PCP: GERHARD Lopez Status:[facility] Y Race: C Location: [facility] Anesthesia Postop Eval I Sum Postop Eval Completion status Anesthesia document: Postop Eval 1 completed: Yes Anesthesia Postop Eval I Summary Anesthesia Postop Eval I Summary: Anesthesia Postop Eval I: Assessment Summary Airway patent Yes 04/06/24 07:59 MACHINE SKIVER.GDOTT Spontaneous unlabored Yes 04/06/24 07:59 MACHINE SKIVER.GDOTT respirations Mental status Awake,Apprehensive 04/06/24 07:59 MACHINE SKIVER.GDOTT nausea No 04/06/24 07:59 MACHINE SKIVER.GDOTT Vomiting No 04/06/24 07:59 MACHINE SKIVER.GDOTT Anesthesia Postop Eval I: Fluid Summary Crystalloid volume administer 500 04/06/24 07:59 MACHINE SKIVER.GDOTT (ml) Colloids volume administered ( ml) Blood Product volume administered (ml) Total IV fluid infused 500 04/06/24 07:59 MACHINE SKIVER.GDOTT Anesthesia Postop Eval I: Summary Notes Anesthesia Complication No 04/06/24 07:59 MACHINE SKIVER.GDOTT Anesthesia Complication Comment: Post-operative progress note Anesthesia: Postop Eval II Evaluation Mental status: Awake Pain Level: 5 nausea: No Vomiting: No 04/06/24912 Date Cal Hernandez Signature: Date CC: Signed Normal [facility] Operative Reporton 4 Operative Report [facility] Medical Records Department [address] [place] [address] Operative Report 04/06/24 0728 MR#: [id number] Acct: [id number] Name: GHAZALA MARTIN Rep #: [id number] : 1990 33 From: Cezar Joel MD PCP: GERHARD Lopez Status:[facility] Location: [facility] Problems Associated Problem List Diagnoses (1) Chronic serous otitis media: Operative Report (Standard) Operative Information Date of Procedure: 04/06/24 Pre-Operative Diagnosis: chronic serous otitis Post-Operative Diagnosis: chronic serous otitis Surgery/Procedure Performed: placement pressure equalization tubes, right and left ear front office spec: No Type of Anesthesia: General/Supplemental RN Documented Start/Stop Times: Operation Date: 04/06/24 07:30 Case Time Into Pre-Op 04/06/24 06:06 Out of Pre-Op 04/06/24 07:24 Procedure Start Time: 07:30 Procedure Stop Time: 07:50 Select all DRAINS/GRAFTS/IMPLANTS that apply: None Estimated Blood Loss: 0 Specimen collected: No Description of surgery: on the day of the procedure, after appropriate informed consent was obtained, the patient was brought to the operating room and placed in supine position on the operating table. she was placed under mask anesthesia by the anesthesiologist. the left ear was examined with the binocular operating microscope. a speculum was placed. the tympanic membrane was viewed in its entirety and found to be intact. a radial myringotomy was made in the anterior/inferior quadrant and a patel tympanostomy tube was placed. floxin otic drops were instilled. the right ear was examined with the binocular operating microscope. a speculum was placed. the tympanic membrane was viewed in its entirety and found to be intact. a radial myringotomy was made in the anterior/inferior quadrant and a patel tympanostomy tube was placed. floxin otic drops were instilled. she was awoken from anesthesia and transferred to the PACU in stable condition. Surgical Findings: n/a Complications Complications: No Admit VTE Documentation VTE Present on Admission: No 04/06/24 0748 Cosigner Signature (if applicable): CC: GERHARD Brown; Dr. Cezar Joel MD Signed Normal [facility] Gastroenterology Visit Repor ton 03-29-2024 Gastroenterology Visit Report [facility] [address] [place] [address] OFFICE VISIT Date of Service: 03/29/24 MR#: [id number] Acct: [id number] Name: GHAZALA MARTIN Rep #: [id number] : 1990 Provider: GERHARD lorenzo Age/Sex: 33/F [place] [facility] Status: Signed Intake Vital Signs 08/29/20 10:15 03/29/24 09:05 Height 5 ft 2 in Weight: 186 lb 8 oz BP 122/84 H Respiration 18 Pulse 94 Pulse Oximetry (%) 98 Oxygen Delivery Method room air Intake Visit Reasons: abdominal pain, Gastroesophageal reflux disease (GERD) Chief Complaint: pain Lab Aid Required: No Accompanied by: Is patient in pain?: Yes Allergies Pork/Porcine Containing Products Allergy (Intermediate, Verified 03/29/24 08:52) Other Medications ???Medication ???Instructions ???Recorded ???Confirmed ???Type oxycodone 5 mg tablet 5 - 10 mg (1 - 2 x 5 mg) PO Q4H 04/25/14 03/29/24 Rx PRN PRN Severe Pain (6-10/10) #30 TABLETS cholecalciferol (vitamin D3) 1,250 1,250 mcg PO QMONTH 06/27/22 03/29/24 History mcg (50,000 unit) capsule duloxetine 20 mg capsule,delayed 20 mg PO BID 06/27/22 03/29/24 History release zolpidem 5 mg tablet 5 mg PO QHS PRN 06/27/22 03/29/24 History ascorbic acid (vitamin C) 250 mg 250 mg PO QDAY 03/29/24 03/29/24 History tablet duloxetine 20 mg capsule,delayed 40 mg PO QDAY 03/29/24 03/29/24 History release (Cymbalta) estradiol 0.01% (0.1 mg/gram) 1 g vaginal 2XW 03/29/24 03/29/24 History vaginal cream (Estrace) estradiol 2 mg tablet 2 mg PO QDAY 03/29/24 03/29/24 History magnesium glycinate 200 mg PO DAILY 03/29/24 03/29/24 History rabeprazole 20 mg tablet,delayed 20 mg PO QDAY 03/29/24 03/29/24 History release vitamin E 100 unit tablet 100 unit PO DAILY 03/29/24 03/29/24 History vonoprazan 20 mg tablet (Voquezna) 20 mg PO QDAY erosive esophagitis 03/29/24 03/29/24 Rx #30 tabs Have you fallen in the past year?: No Nurse's Note: Abdominal pain is upper left quad. Has nausea and decreased appetite. Denies blood in stool lately but has has some come out with the stool in the past. This has been going on for years. [facility] Medical History (Updated 03/29/24 @ 15:32 by GERHARD Feliciano) Thyroid antibody positive Thyroglobulin antibody positive Carpal tunnel syndrome Joint pain Incontinence of urine IBS (irritable bowel syndrome) Fatigue Edema Diarrhea Chronic pain GERD (gastroesophageal reflux disease) Anxiety and depression Fibromyalgia Erosive esophagitis Abdominal pain Surgical History (Updated 03/29/24 @ 07:00 by Humaira Mancia) History of tonsillectomy and adenoidectomy Previous section Hx of cholecystectomy H/O dilation and curettage H/O: hysterectomy Family History (Updated 03/29/24 @ 06:57 by Humaira Mancia) Mother Asthma Cancer Diabetes Fibromyalgia Heart disease Hypertension Depression Lupus Rheumatoid arthritis Father Diabetes Hypertension Grandmother Cancer breast Breast cancer Depression Other CVA (cerebral vascular accident) Endometriosis Seizures Thyroid disorder Social History Smoking Status: Never smoker alcohol intake: never HPI HPI Chief Complaint: pain Details: 33y/o female referred by Haily Brown CNP for complaints of GERD and abdominal pain. CBC and CMP were unremarkable 03/08/2024. She takes Rabeprazole 20mg daily. CTE 09/04/2022 FINDINGS: The abdominal organs are unremarkable in appearance. Bowel is normal in caliber throughout. There is questionable mild mucosal enhancement at the last 7 or 8 cm of the ileum. There is more prominent mucosal enhancement at the distal sigmoid colon. Ileal jejunal fold pattern is maintained. The appendix is not identified. There is no free fluid. There is mild diastasis recti. IMPRESSION: Mild mucosal enhancement, most prominently in the distal sigmoid colon. This is at most mildly suggestive of inflammatory bowel disease. EGD 03/25/2022 ([facility]) erosive esophagitis of the distal esophagus and gastric erythema (no pathololgy available for review) [facility] US 06/18/2019 IMPRESSION: Echogenic hepatic lesions consistent with hemangiomas are new. TTG IgA negative 10/14/2018 Fecal Calprotectin 10/19/2018 (H) 70.1 Colonoscopy 02/03/2017 ([facility]) normal including TI, random biopsies taken to r/o microscopic colitis (no pathololgy available for review) Reports she saw Dr. Hernandez - saw an Toll Test Desk Worker previously - skin prick testing - allergy to celery, wheat and oats - 90% avoids GERD - reports she has chronic reflux and abdominal pain - reflux for her - pain in chest through to back, burning pain up to throat, cough at HS, vomiting bile on occasion - leaves a (more content not included)... Normal [facility] US THYROIDon 03-17-2024 US THYROID ORIGINAL EXAMINATION: ULTRASOUND OF THE THYROID WITH COLOR DOPPLER FLOW [id number]/19/2024 4:52 pm US THYROID COMPARISON: None TECHNIQUE: This report is based on interpretation of permanently recorded ultrasound images. HISTORY: ORDERING SYSTEM PROVIDED HISTORY: Reason for Exam: elevated thyroid antibodies, FINDINGS: RIGHT lobe: 4.6 x 1.7 x 1.8 cm LEFT lobe: 4.5 x 1.6 x 1.5 cm Isthmus is 0.4 cm. The gland is fairly homogeneous with no obvious increase in vascularity. There is a tiny 2 mm colloid cyst in the left lobe. This is a benign finding. No other focal thyroid nodule is seen.. Estimated total number of nodules greater than or equal to 1 cm: 0 IMPRESSION: Normal thyroid ultrasound. No enlargement or suspicious nodule is seen. Interpreted by: Kristopher Herrera MD Preliminary Report By: Kristopher Herrera MD Electronically signed By Kristopher Herrera MD Dictated Date: 03/17/2024 9:10:28 AM Prelim Date: 03/17/2024 9:12:05 AM Sign Date: 03/17/2024 9:12:05 AM Ordering Provider: HAILY BROWN Normal [facility] INSLABon 03-16-2024 Insulin Abs <5.0 Normal [facility] Comment on above: Result Comment: This test is also known as insulin autoantibody or IAA. This test was developed and its performance characteristics determined by [facility]. It has not been cleared or approved by the Food and Drug Administration. Reference Range: <5.0 Negative > or = 5.0 Positive Performed At: [facility] [address] [place] [id number] Piyush Natarajan MD Ph:[phone] Performed By: #### B MP, GFR #### [place] [address] MA MAMMOGRAM SCREENING BILAT ERAL W/TOMOon 03-16-2024 MA MAMMOGRAM SCREENING BILATERAL W/EDI ORIGINAL FROM: [address] [address] PROCEDURE FOR: GHAZALA MARTIN [id number] [facility] [place] [address] Home: PID#: [id number] Exam#: [id number] : 1990 Age: 33 TO: KYLE BARBOUR MD [address] [address] Fax: NO FAX EXAMINATION: SCREENING DIGITAL BILATERAL MAMMOGRAM WITH TOMOSYNTHESIS, 03/15/2024 1:42 pm TECHNIQUE: Screening mammography of the bilateral breasts was performed with tomosynthesis. 2D standard and 3D tomosynthesis combination imaging performed through both breasts in the MLO and CC projection. Computer aided detection was utilized in the interpretation of this exam. COMPARISON: None. HISTORY: Breast cancer screening. Baseline. FINDINGS: BREAST DENSITY: There are scattered areas of fibroglandular density. There are no significant masses or calcifications. IMPRESSION: No mammographic evidence of malignancy. Continued screening with annual mammograms is recommended. Yonatan zick risk calculations, generated with the history provided, report this patient's 10 year risk and lifetime risk for developing breast cancer at 0.4% and 6.1%, respectively. Based on this assessment tool, if the patient's calculated lifetime risk is below 20%, then the patient is considered at average risk for developing breast cancer. If the patient's calculated lifetime risk is at or above 20%, then the patient is considered high risk for developing breast cancer and may be a candidate for supplemental breast MRI screening in addition to annual mammographic screening per the [employer]. BIRADS: BI-RADS: 1: Negative RECALL: 5 year screening RECALL TYPE: mammo LETTER SENT: Normal BI-RADS 1 and 2 Interpreted by: Aashish Kam MD Preliminary Report By: Aashish Kam MD Electronically signed By Aashish Kam MD Dictated Date: 03/16/2024 7:22:41 AM Prelim Date: 03/16/2024 7:24:39 AM Sign Date: 03/16/2024 7:24:39 AM Ordering Provider: KYLE BARBOUR Deck And Hull Assembler: VALERIA BONNER RT(R)(CT) letter sent: Normal BI-RADS 1 and 2 Mammogram BI-RADS: 1 Negative Normal [facility] .Auto Diffon 03-08-2024 Basophil, Absolute 0.0 10 3/mcL Normal 0.0-0.2 [facility] Comment on above: Performed By: #### A DIFF, TSHR, CMP, A1C, GFR, [id number], ANEU, CBC #### [address] [address] #### THYAB #### [address] [address] Basophils/100 WBC (Bld) 0.5 % Normal 0.0-2.5 [facility] Comment on above: Performed By: #### A DIFF, TSHR, CMP, A1C, GFR, 024306, ANEU, CBC #### [place] [address] #### THYAB #### [address] [address] Eosinophil, Absolute 0.2 10 3/mcL Normal 0.0-0.7 [facility] Comment on above: Performed By: #### A DIFF, TSHR, CMP, A1C, GFR, 878516, ANEU, CBC #### [place] [address] #### THYAB #### [address] [address] Eosinophils/100 WBC (Bld) 2.4 % Normal 0.0-7.0 [facility] Comment on above: Performed By: #### A DIFF, TSHR, CMP, A1C, GFR, 663335, ANEU, CBC #### [place] [address] #### THYAB #### [address] [address] Lymphocyte, Absolute 2.9 10 3/mcL Normal 0.9-4.3 [facility] Comment on above: Performed By: #### A DIFF, TSHR, CMP, A1C, GFR, 597534, ANEU, CBC #### [place] [address] #### THYAB #### [address] [address] Lymphocytes/100 WBC (Bld) 33.2 % Normal 20.0-40.0 [facility] Comment on above: Performed By: #### A DIFF, TSHR, CMP, A1C, GFR, 631632, ANEU, CBC #### [address] [address] #### THYAB #### [address] [address] Monocyte, Absolute 0.6 10 3/mcL Normal 0.1-1.4 [facility] Comment on above: Performed By: #### A DIFF, TSHR, CMP, A1C, GFR, 005380, ANEU, CBC #### [address] [address] #### THYAB #### [address] [address] Monocytes/100 WBC (Bld) 7.3 % Normal 2.0-13.0 [facility] Comment on above: Performed By: #### A DIFF, TSHR, CMP, A1C, GFR, 991045, ANEU, CBC #### [address] [address] #### THYAB #### [address] [address] Neutrophils/100 WBC (Bld) 56.6 % Normal 50.0-75.0 [facility] Comment on above: Performed By: #### A DIFF, TSHR, CMP, A1C, GFR, 110302, ANEU, CBC #### [address] [address] #### THYAB #### [address] [address] .GFRon 03-08-2024 GFR 72 ml/min/1.73sqm Normal [facility] Comment on above: Result Comment: GFR Population mean for , Non- Americans Ages 20-29 = 116 mL/min/1.73 sq.m. Ages 30-39 = 107 mL/min/1.73 sq.m. Ages 40-49 = 99 mL/min/1.73 sq.m. Ages 50-59 = 93 mL/min/1.73 sq.m. Ages 60-69 = 85 mL/min/1.73 sq.m. Ages 70+ = 75 mL/min/1.73 sq.m. Chronic Kidney Disease: Less than 60 mL/min/1.73 square meters End Stage Renal Disease: Less than 15 mL/min/1.73 square meters Performed By: #### A DIFF, TSHR, CMP, A1C, GFR, 793089, ANEU, CBC #### [address] [address] #### THYAB #### [address] [address] GFR Non- 59 ml/min/1.73sqm Normal [facility] Comment on above: Result Comment: GFR Population mean for , Non- Americans Ages 20-29 = 116 mL/min/1.73 sq.m. Ages 30-39 = 107 mL/min/1.73 sq.m. Ages 40-49 = 99 mL/min/1.73 sq.m. Ages 50-59 = 93 mL/min/1.73 sq.m. Ages 60-69 = 85 mL/min/1.73 sq.m. Ages 70+ = 75 mL/min/1.73 sq.m. Chronic Kidney Disease: Less than 60 mL/min/1.73 square meters End Stage Renal Disease: Less than 15 mL/min/1.73 square meters Performed By: #### A DIFF, TSHR, CMP, A1C, GFR, 389419, ANEU, CBC #### [address] [address] #### THYAB #### [address] [address] .NEUABSon 03-08-2024 Neutrophil, Absolute 5.0 10 3/mcL Normal 2.3-8.1 [facility] Comment on above: Performed By: #### A DIFF, TSHR, CMP, A1C, GFR, 835725, ANEU, CBC #### [place] [address] #### THYAB #### [place] [id number] A1Con 03-08-2024 Glucose [Mass/Vol] 105 mg/dL Normal [facility] Comment on above: Result Comment: Maria Del Rosario mated Average Glucose calculated by equation ((28.7xA1C)-46.7) Estimated average glucose (eAG) is a calculated value from Hemoglobin A1C and is textile designs sales representative of the average blood glucose level in the last 2-3 month period. Normal range: less than 114 mg/dL Performed By: #### B MP, GFR #### [place] [address] HbA1c (Bld) [Mass fraction] 5.3 % Normal 4.3-6.4 [facility] Comment on above: Performed By: #### B MP, GFR #### [place] [address] CBC 03-08-2024 Erythrocyte distribution width (RBC) [Ratio] 12.6 % Normal 11.5-15.5 [facility] Comment on above: Performed By: #### A DIFF, TSHR, CMP, A1C, GFR, 135827, ANEU, CBC #### [place] [address] #### THYAB #### [place] [address] Hematocrit (Bld) [Volume fraction] 41.3 % Normal 34.0-46.0 [facility] Comment on above: Performed By: #### A DIFF, TSHR, CMP, A1C, GFR, 282340, ANEU, CBC #### [place] [address] #### THYAB #### [place] [address] Hgb 14.1 G/dL Normal 12.0-16.0 [facility] Comment on above: Performed By: #### A DIFF, TSHR, CMP, A1C, GFR, 023872, ANEU, CBC #### [place] [address] #### THYAB #### [address] [address] MCH (RBC) [Entitic mass] 30.6 pg Normal 27.0-33.0 [facility] Comment on above: Performed By: #### A DIFF, TSHR, CMP, A1C, GFR, 154746, ANEU, CBC #### [place] [address] #### THYAB #### [place] [address] MCHC 34.1 G/dL Normal 32.0-36.0 [facility] Comment on above: Performed By: #### A DIFF, TSHR, CMP, A1C, GFR, 465095, ANEU, CBC #### [place] [address] #### THYAB #### [place] [address] MCV (RBC) [Entitic vol] 89.8 fL Normal 80.0-99.0 [facility] Comment on above: Performed By: #### A DIFF, TSHR, CMP, A1C, GFR, 458328, ANEU, CBC #### [place] [address] #### THYAB #### [place] [address] Platelet 315 10 3/mcL Normal 150-450 [facility] Comment on above: Performed By: #### A DIFF, TSHR, CMP, A1C, GFR, 395047, ANEU, CBC #### [place] [address] #### THYAB #### [place] [address] Platelet mean volume (Bld) [Entitic vol] 7.1 fL Normal 6.6-10.5 [facility] Comment on above: Performed By: #### A DIFF, TSHR, CMP, A1C, GFR, 926765, ANEU, CBC #### [address] [address] #### THYAB #### [address] [address] RBC 4.60 10 6/mcL Normal 4.10-5.30 [facility] Comment on above: Performed By: #### A DIFF, TSHR, CMP, A1C, GFR, 892605, ANEU, CBC #### [place] [address] #### THYAB #### [place] [address] WBC 8.9 10 3/mcL Normal 4.5-10.8 [facility] Comment on above: Performed By: #### A DIFF, TSHR, CMP, A1C, GFR, 486361, ANEU, CBC #### [place] [address] #### THYAB #### [place] [address] CMPon 03-08-2024 Albumin Level 3.8 G/dL Normal 3.5-5.0 [facility] Comment on above: Performed By: #### A DIFF, TSHR, CMP, A1C, GFR, 214254, ANEU, CBC #### [place] [address] #### THYAB #### [place] [address] Albumin/Globulin [Mass ratio] 1.3 {ratio} Normal 1.1-2.5 [facility] Comment on above: Performed By: #### A DIFF, TSHR, CMP, A1C, GFR, 645996, ANEU, CBC #### [place] [address] #### THYAB #### [place] [address] ALP [Catalytic activity/Vol] 82 U/L Normal 40-135 [facility] Comment on above: Performed By: #### A DIFF, TSHR, CMP, A1C, GFR, 121001, ANEU, CBC #### [address] [address] #### THYAB #### [address] [address] ALT [Catalytic activity/Vol] 49 U/L Normal 14-59 [facility] Comment on above: Performed By: #### A DIFF, TSHR, CMP, A1C, GFR, 192212, ANEU, CBC #### [place] [address] #### THYAB #### [address] [address] AST [Catalytic activity/Vol] 20 U/L Normal 10-40 [facility] Comment on above: Performed By: #### A DIFF, TSHR, CMP, A1C, GFR, 723460, ANEU, CBC #### [place] [address] #### THYAB #### [place] [address] Bili Total 0.3 mg/dL Normal 0.2-1.0 [facility] Comment on above: Result Comment: Use of this assay is not recommended for patients undergoing treatment with eltrombopag due to the potential for falsely elevated results. Performed By: #### A DIFF, TSHR, CMP, A1C, GFR, 077623, ANEU, CBC #### [place] [address] #### THYAB #### [address] [address] BUN/Creatinine Ratio 12 ratio Normal 7-27 [facility] Comment on above: Performed By: #### A DIFF, TSHR, CMP, A1C, GFR, 430046, ANEU, CBC #### [place] [address] #### THYAB #### [address] [address] Calcium [Mass/Vol] 8.7 mg/dL Normal 8.4-10.2 [facility] Comment on above: Performed By: #### A DIFF, TSHR, CMP, A1C, GFR, 648627, ANEU, CBC #### [address] [address] #### THYAB #### [address] [address] Chloride [Moles/Vol] 105 mmol/L Normal 98-107 [facility] Comment on above: Performed By: #### A DIFF, TSHR, CMP, A1C, GFR, 788119, ANEU, CBC #### [address] [address] #### THYAB #### [address] [address] CO2 [Moles/Vol] 30 mmol/L High 22-29 [facility] Comment on above: Performed By: #### A DIFF, TSHR, CMP, A1C, GFR, 315797, ANEU, CBC #### [place] [address] #### THYAB #### [place] [address] Creatinine [Mass/Vol] 1.06 mg/dL High 0.55-1.02 [facility] Comment on above: Result Comment: Test ing performed on Siemens Dimension EXL analyzer using a modified kinetic Eliana technique. Performed By: #### A DIFF, TSHR, CMP, A1C, GFR, 794652, ANEU, CBC #### [place] [address] #### THYAB #### [place] [address] Electrolyte Balance 6.0 mEq/L Normal 4.0-15.[address] [facility] Comment on above: Performed By: #### A DIFF, TSHR, CMP, A1C, GFR, 817227, ANEU, CBC #### [address] [address] #### THYAB #### [place] [address] Globulin 2.9 G/dL Normal [facility] Comment on above: Performed By: #### A DIFF, TSHR, CMP, A1C, GFR, 899529, ANEU, CBC #### [address] [address] #### THYAB #### [address] [address] Glucose [Mass/Vol] 96 mg/dL Normal 70-105 [facility] Comment on above: Performed By: #### A DIFF, TSHR, CMP, A1C, GFR, 221122, ANEU, CBC #### [place] [address] #### THYAB #### [address] [address] Potassium [Moles/Vol] 4.8 mmol/L Normal 3.5-5.1 [facility] Comment on above: Performed By: #### A DIFF, TSHR, CMP, A1C, GFR, 385969, ANEU, CBC #### [place] [address] #### THYAB #### [address] [address] Sodium [Moles/Vol] 141 mmol/L Normal 136-145 [facility] Comment on above: Performed By: #### A DIFF, TSHR, CMP, A1C, GFR, 381313, ANEU, CBC #### [address] [address] #### THYAB #### [address] [address] Total Protein 6.7 G/dL Normal 6.4-8.2 [facility] Comment on above: Performed By: #### A DIFF, TSHR, CMP, A1C, GFR, 241422, ANEU, CBC #### [address] [address] #### THYAB #### [address] [address] Urea nitrogen [Mass/Vol] 13 mg/dL Normal 7-18 [facility] Comment on above: Performed By: #### A DIFF, TSHR, CMP, A1C, GFR, 315370, ANEU, CBC #### [place] [address] [place], [place] [address] #### THYAB #### [address] [address] LABORATORYOrdered By: SYSTEM SYSTEM on 03-08-2024 Albumin BCP dye [Mass/Vol] 3.8 G/dL Normal 3.5 - 5.0 G/dL AO ADM SS Albumin/Globulin [Mass ratio] 1.3 {ratio} Normal 1.1 - 2.5 ratio AO ADM SS ALP [Catalytic activity/Vol] 82 U/L Normal 40 - 135 U/L AO ADM SS ALT With P-5'-P [Catalytic activity/Vol] 49 U/L Normal 14 - 59 U/L AO ADM SS AST With P-5'-P [Catalytic activity/Vol] 20 U/L Normal 10 - 40 U/L AO ADM SS Basophils (Bld) [#/Vol] 0.0 103/mcL Normal 0.0 - 0.2 10^3/mcL AO Workflow SS Basophils/100 WBC (Bld) 0.5 % Normal 0.0 - 2.5 % AO Workflow SS Bilirubin [Mass/Vol] 0.3 mg/dL Normal 0.2 - 1 .0 mg/dL AO ADM SS Comment on above: Interpretive Data: U se of this assay is not recommended for patients undergoing treatment with eltrombopag due to the potential for falsely elevated results. Calcium [Mass/Vol] 8.7 mg/dL Normal 8.4 - 10. 2 mg/dL AO ADM SS Chloride [Moles/Vol] 105 mmol/L Normal 98 - 10 7 mmol/L AO ADM SS CO2 [Moles/Vol] 30 mmol/L High 22 - 29 mmol/L AO ADM SS Creatinine [Mass/Vol] 1.06 mg/dL High 0.55 - 1.02 mg/dL AO ADM SS Comment on above: Interpretive Data: T esting performed on Siemens Dimension EXL analyzer using a modified kinetic Eliana technique. Electrolyte Balance 6.0 mEq/L Normal 4.0 - 15 .0 mEq/L AO ADM SS Eosinophil, Absolute 0.2 103/mcL Normal 0.0 - 0 .7 10^3/mcL AO Workflow SS Eosinophils/100 WBC (Bld) 2.4 % Normal 0.0 - 7.0 % AO Workflow SS Erythrocyte distribution width (RBC) [Ratio] 12.6 % Normal 11.5 - 15.5 % AO Workflow SS GFR/1.73 sq M.predicted among blacks MDRD (S/P/Bld) [Vol rate/Area] 72 ml/min/1.73sqm Invalid Interpretation Code AO Chemistry S Comment on above: Interpretive Data: GFR Population mean for , Non- Americans Ages 20-29 = 116 mL/min/1.73 sq.m. Ages 30-39 = 107 mL/min/1.73 sq.m. Ages 40-49 = 99 mL/min/1.73 sq.m. Ages 50-59 = 93 mL/min/1.73 sq.m. Ages 60-69 = 85 mL/min/1.73 sq.m. Ages 70+ = 75 mL/min/1.73 sq.m. Chronic Kidney Disease: Less than 60 mL/min/1.73 square meters End Stage Renal Disease: Less than 15 mL/min/1.73 square meters GFR/1.73 sq M.predicted among non-blacks MDRD (S/P/Bld) [Vol rate/Area] 59 ml/min/1.73sqm Invalid Interpretation Code AO Chemistry S Comment on above: Interpretive Data: GFR Population mean for , Non- Americans Ages 20-29 = 116 mL/min/1.73 sq.m. Ages 30-39 = 107 mL/min/1.73 sq.m. Ages 40-49 = 99 mL/min/1.73 sq.m. Ages 50-59 = 93 mL/min/1.73 sq.m. Ages 60-69 = 85 mL/min/1.73 sq.m. Ages 70+ = 75 mL/min/1.73 sq.m. Chronic Kidney Disease: Less than 60 mL/min/1.73 square meters End Stage Renal Disease: Less than 15 mL/min/1.73 square meters Globulin 2.9 G/dL Invalid Interpretation Code AO ADM SS Glucose [Mass/Vol] 96 mg/dL Normal 70 - 105 mg/dL AO ADM SS Glucose [Mass/Vol] 105 mg/dL Invalid Interpretation Code AO Chemistry S Comment on above: Interpretive Data: E stimated average glucose (eAG) is a calculated value from Hemoglobin A1C and is textile designs sales representative of the average blood glucose level in the last 2-3 month period. Normal range: less than 114 mg/dL HbA1c (Bld) [Mass fraction] 5.3 % Normal 4.3 - 6.4 % AO ADM SS Hematocrit (Bld) [Volume fraction] 41.3 % Normal 34.0 - 46.0 % AO Workflow SS Hemoglobin (Bld) [Mass/Vol] 14.1 G/dL Normal 12.0 - 16.0 G/dL AO Workflow SS Lymphocytes (Bld) [#/Vol] 2.9 103/mcL Normal 0.9 - 4.3 10^3/mcL AO Workflow SS Lymphocytes/100 WBC (Bld) 33.2 % Normal 20.0 - 40.0 % AO Workflow SS MCH (RBC) [Entitic mass] 30.6 pg Normal 27.0 - 33.0 pg AO Workflow SS MCHC 34.1 G/dL Normal 32.0 - 36.0 G/dL AO Workflow SS MCV (RBC) [Entitic vol] 89.8 fL Normal 80.0 - 99.0 fL AO Workflow SS Monocytes (Bld) [#/Vol] 0.6 103/mcL Normal 0.1 - 1.4 10^3/mcL AO Workflow SS Monocytes/100 WBC (Bld) 7.3 % Normal 2.0 - 13.0 % AO Workflow SS Neutrophils (Bld) [#/Vol] 5.0 103/mcL Normal 2.3 - 8.1 10^3/mcL AO Workflow SS Neutrophils/100 WBC (Bld) 56.6 % Normal 50.0 - 75.0 % AO Workflow SS Platelet mean volume (Bld) [Entitic vol] 7.1 fL Normal 6.6 - 10.5 fL AO Workflow SS Platelets (Bld) [#/Vol] 315 103/mcL Normal 150 - 450 10^3/mcL AO Workflow SS Potassium [Moles/Vol] 4.8 mmol/L Normal 3.5 - 5.1 mmol/L AO ADM SS Protein [Mass/Vol] 6.7 G/dL Normal 6.4 - 8.2 G/dL AO ADM SS RBC (Bld) [#/Vol] 4.60 106/mcL Normal 4.10 - 5.30 10^6/mcL AO Workflow SS Sodium [Moles/Vol] 141 mmol/L Normal 136 - 145 mmol/L AO ADM SS Thyroglobulin Ab IA Qn unit/mL Normal 15 - 60 unit/mL AH ADM SS Comment on above: Interpretive Data: * *Note - New Reference Range in effect 19 TPO Ab IA Qn unit/mL Normal 0 - 60 unit/mL AH ADM SS Comment on above: Interpretive Data: * *Note - New Reference Range in effect 19 TSH Qn 1.01 m[IU]/L Normal 0.36 - 3.74 mcIU/mL AO ADM SS Urea nitrogen [Mass/Vol] 13 mg/dL Normal 7 - 18 mg/dL AO ADM SS Urea nitrogen/Creatinine [Mass ratio] 12 ratio Normal 7 - 27 ratio AO ADM SS WBC (Bld) [#/Vol] 8.9 103/mcL Normal 4.5 - 10.8 10^3/mcL AO Workflow SS THYABon 03-08-2024 anti-Thyroid Peroxidase <28 Normal 0-60 [facility] Comment on above: Result Comment: No te - New Reference Range in effect 19 Performed By: #### B MP, GFR #### [address] [address] Thyroglobulin Ab Qn [IU]/mL Normal 15-[address] [facility] Comment on above: Result Comment: No te - New Reference Range in effect 19 Performed By: #### B MP, GFR #### [address] [address] TSHRon 03-08-2024 TSH Qn 1.01 m[IU]/L Normal 0.36-3.74 [facility] Comment on above: Performed By: #### A DIFF, TSHR, CMP, A1C, GFR, 038814, ANEU, CBC #### [address] [address] #### THYAB #### [facility] [address] [place] [address] Sinus/Facial Boneon 11-17-19 Sinus/Facial Bone [facility] Imaging Services [address] [place] [address] Sinus/Facial Bone MR#: [id number] Acct: [id number] Name: GHAZALA MARTIN Rep #: [id number] : 1990 F 33 From: Seun lara MD PCP: GERHARD Lopez Status: [facility] Study: Sinus/Facial Bone Date of Exam: 11/17/23 Exam# [id number] Ordering Dr: Cezar Joel MD [id number] STUDY: CT MAXILLOFACIAL SINUSES REASON FOR EXAM: Female, 33 years old. CHRONIC SINUSITIS RADIATION DOSAGE (If Supplied By Facility): CTDIvol = ( 33.06 ) mGy, DLP = ( 776.00 ) mGycm TECHNIQUE: The patient was scanned in a multi detector CT scanner. High resolution axial imaging was performed without the administration of intravenous contrast material. Sagittal and coronal images were reconstructed. Individualized dose optimization techniques were used for this CT. COMPARISON: None. FINDINGS: FRONTAL SINUSES: Normal aeration, without mucosal inflammatory disease. ETHMOIDAL SINUSES: Normal aeration, without mucosal inflammatory disease. MAXILLARY SINUSES: Normal aeration, without mucosal inflammatory disease. SPHENOIDAL SINUSES: Normal aeration, without mucosal inflammatory disease. There is patency of the bilateral maxillary infundibuli with normal uncinate processes, ethmoid bullae, and hiatus semilunaris. Normal bilateral middle turbinates. Normal bilateral inferior turbinates. Minimal deviation of the nasal septum towards the left side. There is patency of the bilateral nasal airways. The visualized osseous structures are normal. The visualized bilateral orbital contents are normal. CT/Sinus/Facial Bone IMPRESSION: Normal CT examination of the maxillofacial sinuses. Minimal deviation of the nasal septum towards the left side. Electronically Signed: Seun Sharif MD at 13:21 EDT Reading Location ID and State: [facility] / [place] , Service support , CC: GERHARD Brown; Dr. Cezar Joel MD Rn Observation: Signed Normal [facility] [id number] 07-03-2023 C1 Est Inhib Func >93 Normal [facility] ([place]) Comment on above: Result Comment: Abno rmal <41 Equivocal 41 - 67 Normal >67 Performed At: [address] [id number] Stevie Ferreira MD Ph:[phone] Performed By: #### S SAB, SCL70, CBC, ADIFF, SMRP, CK, ANEU #### [address] [address] #### ANISH, RF, CCP #### [place] [address] [id number] 06-25-2023 C1 Esterase Inhib 34 mg/dL Normal 21-39 [facility] ([place]) Comment on above: Result Comment: Perf ormed At: [address] [id number] Stevie Ferreira MD Ph:[phone] Performed By: #### S SAB, SCL70, CBC, ADIFF, SMRP, CK, ANEU #### [place] [address] #### ANISH, RF, CCP #### [place] [address] TRYPTon 06-25-2023 Tryptase. 9.0 UG/L Normal 2.2-13.2 [facility] ([place]) Comment on above: Result Comment: Perf ormed At: [address] [id number] Stevie Ferreira MD Ph:[phone] Performed By: #### S SAB, SCL70, CBC, ADIFF, SMRP, CK, ANEU #### [place] [address] #### ANISH, RF, CCP #### [address] [address] .Auto Diffon 06-23-2023 Basophil, Absolute 0.0 10 3/mcL Normal 0.0-0.2 [facility] ([place]) Comment on above: Performed By: #### S SAB, SCL70, CBC, ADIFF, SMRP, CK, ANEU #### [address] [address] #### ANISH, RF, CCP #### [address] [address] Basophils/100 WBC (Bld) 0.6 % Normal 0.0-2.5 [facility] ([place]) Comment on above: Performed By: #### S SAB, SCL70, CBC, ADIFF, SMRP, CK, ANEU #### [address] [address] #### ANISH, RF, CCP #### [address] [address] Eosinophil, Absolute 0.1 10 3/mcL Normal 0.0-0.4 [facility] ([place]) Comment on above: Performed By: #### S SAB, SCL70, CBC, ADIFF, SMRP, CK, ANEU #### [address] [address] #### ANISH, RF, CCP #### [address] [address] Eosinophils/100 WBC (Bld) 2.0 % Normal 0.0-7.0 [facility] ([place]) Comment on above: Performed By: #### S SAB, SCL70, CBC, ADIFF, SMRP, CK, ANEU #### [address] [address] #### ANISH, RF, CCP #### [address] [address] Lymphocyte, Absolute 2.2 10 3/mcL Normal 0.8-3.9 [facility] ([place]) Comment on above: Performed By: #### S SAB, SCL70, CBC, ADIFF, SMRP, CK, ANEU #### [address] [address] #### ANISH, RF, CCP #### [address] [address] Lymphocytes/100 WBC (Bld) 35.1 % Normal 10.0-50.0 [facility] ([place]) Comment on above: Performed By: #### S SAB, SCL70, CBC, ADIFF, SMRP, CK, ANEU #### [address] [address] #### ANISH, RF, CCP #### [address] [address] Monocyte, Absolute 0.5 10 3/mcL Normal 0.2-1.0 [facility] [place] Comment on above: Performed By: #### S SAB, SCL70, CBC, ADIFF, SMRP, CK, ANEU #### [place] [address] #### ANISH, RF, CCP #### [address] [address] Monocytes/100 WBC (Bld) 7.7 % Normal 1.7-13.0 [facility] ([place]) Comment on above: Performed By: #### S SAB, SCL70, CBC, ADIFF, SMRP, CK, ANEU #### [address] [address] #### ANISH, RF, CCP #### [address] [address] Neutrophils/100 WBC (Bld) 54.6 % Normal 37.0-80.0 [facility] ([place]) Comment on above: Performed By: #### S SAB, SCL70, CBC, ADIFF, SMRP, CK, ANEU #### [address] [address] #### ANISH, RF, CCP #### [address] [address] .NEUABSon 06-23-2023 Neutrophil, Absolute 3.4 10 3/mcL Normal 2.9-6.2 [facility] ([place]) Comment on above: Performed By: #### S SAB, SCL70, CBC, ADIFF, SMRP, CK, ANEU #### [address] [address] #### ANISH, RF, CCP #### [address] [address] [id number] 06-23-2023 Complement C3A 121.0 mg/dL Normal 90.0-170.0 [facility] ([place]) Comment on above: Result Comment: No te - New Reference Range in effect 19 Performed By: #### S SAB, SCL70, CBC, ADIFF, SMRP, CK, ANEU #### [place] [address] #### ANISH, RF, CCP #### [place] [address] Complement C4A 26.0 mg/dL Normal 16.0-38.0 [facility] ([place]) Comment on above: Performed By: #### S SAB, SCL70, CBC, ADIFF, SMRP, CK, ANEU #### [place] [address] #### ANISH, RF, CCP #### [place] [address] CBCon 06-23-2023 Erythrocyte distribution width (RBC) [Ratio] 12.5 % Normal 11.5-14.5 [facility] ([place]) Comment on above: Performed By: #### A DIFF, CBC, ANEU, 796415, 949999, 982466 ####[place] [address]#### IGE, C3C4A ####[place] [address] Hematocrit (Bld) [Volume fraction] 44.2 % Normal 37.0-47.0 [facility] ([place]) Comment on above: Performed By: #### A DIFF, CBC, ANEU, 649193, 292680, 420206 ####[place] [address]#### IGE, C3C4A ####[place] [address] Hgb 15.1 G/dL Normal 12.0-16.0 [facility] ([place]) Comment on above: Performed By: #### A DIFF, CBC, ANEU, 919261, 372617, 796636 ####[place] [address]#### IGE, C3C4A ####[place] [address] MCH (RBC) [Entitic mass] 30.7 pg Normal 27.0-31.2 [facility] ([place]) Comment on above: Performed By: #### A DIFF, CBC, ANEU, 243342, 969145, 250239 ####[place] [address]#### IGE, C3C4A ####[place] [address] MCHC 34.1 G/dL Normal 33.0-37.0 [facility] ([place]) Comment on above: Performed By: #### A DIFF, CBC, ANEU, 025888, 802084, 443600 ####[place] [address]#### IGE, C3C4A ####[place] [address] MCV (RBC) [Entitic vol] 90.0 fL Normal 80.0-94.0 [facility] ([place]) Comment on above: Performed By: #### A DIFF, CBC, ANEU, 162257, 515501, 917901 ####[place] [address]#### IGE, C3C4A ####[place] [address] Platelet 264 10 3/mcL Normal 130-400 [facility] ([place]) Comment on above: Performed By: #### A DIFF, CBC, ANEU, 797676, 397665, 932926 ####[place] [address]#### IGE, C3C4A ####[place] [address] Platelet mean volume (Bld) [Entitic vol] 7.5 fL Normal 7.4-10.4 [facility] ([place]) Comment on above: Performed By: #### A DIFF, CBC, ANEU, 159945, 752955, 601993 ####[place] [address]#### IGE, C3C4A ####[place] [address] RBC 4.91 10 6/mcL Normal 4.20-5.40 [facility] ([place]) Comment on above: Performed By: #### A DIFF, CBC, ANEU, 065582, 331894, 166225 ####[place] [address]#### IGE, C3C4A ####[place] [address] WBC 6.2 10 3/mcL Normal 4.6-10.8 [facility] ([place]) Comment on above: Performed By: #### A DIFF, CBC, ANEU, 414364, 707195, 229860 ####[place] [address]#### IGE, C3C4A ####[place] [address] IGEon 06-23-2023 IgE 3.1 IU/mL Normal 0.0-378.0 [facility] ([place]) Comment on above: Result Comment: No te - New Reference Range in effect 19 Performed By: #### S SAB, SCL70, CBC, ADIFF, SMRP, CK, ANEU #### [place] [address] #### ANISH, RF, CCP #### [place] [address] Comprehensive metabolic 2000 panelon 03-05-2023 Albumin [Mass/Vol] 4.6 g/dL Normal 3.9-4.9 [facility] Comment on above: Order Comment: Speci men Type: BLOOD SPECIMEN Ordering Facility: [facility] Address: [address] [place] [address] Performed By: #### 2 4323-8 #### [facility] CLIA [id number] [address] [place] [address] [place] ALP [Catalytic activity/Vol] 62 U/L Normal 34-123 [facility] Comment on above: Order Comment: Speci men Type: BLOOD SPECIMEN Ordering Facility: [facility] Address: [address] [place] [address] Performed By: #### 2 4323-8 #### [facility] CLIA [id number] [address] [place] [address] [place] ALT [Catalytic activity/Vol] 26 U/L Normal 7-38 [facility] Comment on above: Order Comment: Speci men Type: BLOOD SPECIMEN Ordering Facility: [facility] Address: [address] [place] [address] Performed By: #### 2 4323-8 #### [facility] CLIA [id number] [address] [place] [address] [place] Anion gap [Moles/Vol] 12 mmol/L Normal 9-18 [facility] Comment on above: Order Comment: Speci men Type: BLOOD SPECIMEN Ordering Facility: [facility] Address: [address] [place] [address] Performed By: #### 2 4323-8 #### [facility] CLIA [id number] [address] [place] [address] [place] AST [Catalytic activity/Vol] 25 U/L Normal 13-35 [facility] Comment on above: Order Comment: Speci men Type: BLOOD SPECIMEN Ordering Facility: [facility] Address: [address] [place] [address] Performed By: #### 2 4323-8 #### [facility] CLIA [id number] [address] [place] [id number] [place] Bilirubin [Mass/Vol] 0.3 mg/dL Normal 0.2-1.3 [facility] Comment on above: Order Comment: Speci men Type: BLOOD SPECIMEN Ordering Facility: [facility] Address: [address] [place] [address] Performed By: #### 2 4323-8 #### [facility] CLIA [id number] [address] [place] [address] [place] Calcium [Mass/Vol] 9.4 mg/dL Normal 8.5-10.2 [facility] Comment on above: Order Comment: Speci men Type: BLOOD SPECIMEN Ordering Facility: [facility] Address: [address] [place] [address] Performed By: #### 2 4323-8 #### [facility] CLIA [id number] [address] [place] [address] [place] Chloride [Moles/Vol] 102 mmol/L Normal 97-105 [facility] Comment on above: Order Comment: Speci men Type: BLOOD SPECIMEN Ordering Facility: [facility] Address: [address] [place] [address] Performed By: #### 2 4323-8 #### [facility] CLIA [id number] [address] [place] [address] [place] CO2 [Moles/Vol] 26 mmol/L Normal 22-30 [facility] Comment on above: Order Comment: Speci men Type: BLOOD SPECIMEN Ordering Facility: [facility] Address: [address] [place] [address] Performed By: #### 2 4323-8 #### [facility] CLIA [id number] [address] [place] [id number] [place] Creatinine [Mass/Vol] 0.92 mg/dL Normal 0.58-0.96 [facility] Comment on above: Order Comment: Eitan hughes Type: BLOOD SPECIMEN Ordering Facility: [facility] Address: [address] [place] [address] Performed By: #### 2 4323-8 #### [facility] CLIA [id number] [address] [place] [address] [place] Creatinine and Glomerular filtration rate.predicted panel (S/P/Bld) 84 mL/min/1.73m??? Normal >=60 [facility] Comment on above: Order Comment: Eitan hughes Type: BLOOD SPECIMEN Ordering Facility: [facility] Address: [address] [place] [address] Result Comment: Maria Del Rosario mated Glomerular Filtration Rate (eGFR) is calculated using the 2020 CKD-EPI creatinine equation. This equation utilizes serum creatinine, sex, and age as parameters. The creatinine assay has traceable calibration to isotope dilution-mass spectrometry. Refer to KDIGO guidelines for clinical interpretation. In patients with unstable renal function, e.g. those with acute kidney injury, the eGFR may not accurately reflect actual GFR. Performed By: #### 2 4323-8 #### [facility] CLIA [id number] [address] [place] [address] [place] Glucose [Mass/Vol] 80 mg/dL Normal 74-99 [facility] Comment on above: Order Comment: Eitan hughes Type: BLOOD SPECIMEN Ordering Facility: [facility] Address: [address] [place] [address] Result Comment: The [place] [employer] (ADA) provides guidance for cutoff values for fasting glucose and random glucose. The ADA defines fasting as no caloric intake for at least 8 hours. Fasting plasma glucose results between 100 to 125 mg/dL indicate increased risk for diabetes (prediabetes). Fasting plasma glucose results greater than or equal to 126 mg/dL meet the criteria for diagnosis of diabetes. In the absence of unequivocal hyperglycemia, results should be confirmed by repeat testing. In a patient with classic symptoms of hyperglycemia or hyperglycemic crisis, random plasma glucose results greater than or equal to 200 mg/dL meet the criteria for diagnosis of diabetes. Reference: Standards of Medical Care in Diabetes 2016, [place] [employer]. Diabetes Care. 2016.39(Suppl 1). Performed By: #### 2 4323-8 #### [facility] CLIA [id number] [address] [place] [address] [place] Potassium [Moles/Vol] 4.7 mmol/L Normal 3.7-5.1 [facility] Comment on above: Order Comment: Speci men Type: BLOOD SPECIMEN Ordering Facility: [facility] Address: [address] [place] [address] Performed By: #### 2 4323-8 #### [facility] CLIA [id number] [address] [place] [address] [place] Protein [Mass/Vol] 7.1 g/dL Normal 6.3-8.0 [facility] Comment on above: Order Comment: Speci men Type: BLOOD SPECIMEN Ordering Facility: [facility] Address: [address] [place] [address] Performed By: #### 2 4323-8 #### [facility] CLIA [id number] [address] [place] [address] [place] Sodium [Moles/Vol] 140 mmol/L Normal 136-144 [facility] Comment on above: Order Comment: Speci men Type: BLOOD SPECIMEN Ordering Facility: [facility] Address: [address] [place] [address] Performed By: #### 2 4323-8 #### [facility] CLIA [id number] [address] [place] [address] [place] Urea nitrogen [Mass/Vol] 12 mg/dL Normal 7-21 [facility] Comment on above: Order Comment: Speci men Type: BLOOD SPECIMEN Ordering Facility: [facility] Address: [address] [place] [address] Performed By: #### 2 4323-8 #### [facility] CLIA [id number] [address] [place] [address] [place] CNOVon 03-03-2023 CNOV Office Visit (KIDMMN ) GHAZALA MARTIN ([id number]) 1990 F Date Time Provider Department 03/03/23 1:00 PM RO WOOTEN During your visit today, we recorded the following information about you: Temperature Pulse Blood pressure Weight 98.4 degrees 74/minute 132/84 79.6 kg Height 1.6 m Ro Wooten DO 03/03/2023 2:51 PM Signed [facility] NEPHROLOGY AND HYPERTENSION [facility] SERVICE DATE: 03/03/2023 SERVICE TIME: 2:42 PM REASON FOR CONSULT: I am asked to see this patient in consultation for my opinion regarding CKDIIIA. My recommendations will be communicated by way of shared medical record, fax, or mail. REQUESTING PHYSICIAN: Self PRIMARY CARE PHYSICIAN: Jaelyn Li DO, DO CHIEF COMPLAINT: CKDIIIA HPI: Ms. Martin is a 32 year old female who presents with a h/o CKDIIIa, IBS, fibromyalgia and abdominal pain who presented to clinic today to discuss CKDIIA. Surgical History: 2010: Cholecystectomy 09/16/2020: hysterectomy and had post operative infection of her skin and related to her stiches she states. - Noted that Pts GFR appears to drop post hysterectomy 2015: GFR>60 Has been getting b/l LE edema as well as notable facial edema. Pt admits also that she has urinary frequency, as well as urgency. When she is in a flair up of her symptoms she feels that she cannot fully empty her bladder. Never had a UTI that she is aware of. UA had LE and WBC previously, no RBC. Pt admits to night sweats, hot flashes, has lost about 20lbs (intentionally), she states that she can gain ~8lbs sometimes in fluid, which can go up her thighs b/l. Notes that she has edema in her b/l LE can sometimes get worse during the day. Pt states that your symptoms have been getting worse steadily. Has had EGD (ulcerative esophagitis on PPI), colonoscopy - nothing found on colonoscopy. Has been getting chronic diarrhea, which is somewhat improved. Welchol has helped with diarrhea. She has chronic nausea as well, she has periods where she cannot drink due to this. Pt admits to feeling light headed while in bed occasionally as well. Denies gross hematuria. Admits that sometimes she has had foamy urine. Last albumin 4.0. BP at home (bicep cuff) has been about ~137/147 at times as well. Pt was on HCTZ 12.5 but his has been stopped, this was for edema and not for her BP. Pt states that she recently saw her PCP and that she ahs started on a diet for her HTN has not been started on mediations. Has been on Raveprazole for her GERD. Does not get recurrent sinus infection, no eyes changes. Renal Us: 12/16/22: HISTORY: ORDERING SYSTEM PROVIDED HISTORY: Reason for Exam: ckd stage 3 FINDINGS: The right kidney measures 8.7 x 4.0 x 3.9 cm and the left kidney measures 8.3 x 3.9 x 3.5 cm. There is no evidence of hydronephrosis or perinephric fluid collections. Right extrarenal pelvis is again identified. No contour deforming upper hypoechoic renal cortical lesion is identified. Prevoid urinary bladder volume is 162 mL and the postvoid urinary bladder volume is 7 mL. No focal bladder lesion is identified. Color Doppler analysis reveals bilateral ureteral jets. IMPRESSION: Unremarkable bilateral renal and urinary bladder ultrasound. Recent Admissions: CKD Stage IIIA PROTEINURIA: Will obtain UA today HYPERKALEMIA: None noted on previous labs (4.4) on 11/2022 METABOLIC ACIDOSIS: None on previous labs (HCO3: 30) Repeat labs today SECONDARY HYPERPARATHYROIDISM: PTH: 57 (11/2022) Previous C and Phos Wnl Will repeat today HYPERTENSION Newly noted, Pt following with PCP currently doing lifestyle changes PREVENTION: Crestor 5mg Family History: Father: CKD - stable per Pt - H/o DM/HTN Nephrolithiasis: None seen on prior US NSAID Use: Denies NSAID use MEDICATION MANAGEMENT: Medications reviewed for accuracy with the patient and doses were confirmed and adjusted for current level of renal function. PAST MEDICAL HISTORY: PAST MEDICAL HISTORY Diagnosis Date CKD (chronic kidney disease) stage 3, GFR 30-59 ml/min (HCC) Essential hypertension Fibromyalgia Generalized anxiety disorder IBS (irritable bowel syndrome) PAST SURGICAL HISTORY: PAST SURGICAL HISTORY Procedure Laterality Date TOTAL ABDOM HYSTERECTOMY FAMILY HISTORY: FAMILY HISTORY Problem Relation Age of Onset Diabetes Father Hypertension Father other (ckd) Father SOCIAL HISTORY: Social History Tobacco Use Smoking status: Never Smokeless tobacco: Never Substance Use Topics Alcohol use: Not Currently Drug use: Yes Types: Marijuana Comment: Medical marijuana PRN MEDICATIONS: DULoxetine (CYMBALTA) 20 mg capsule 2 CAP(S) ORALLY DAILY FOR 30 DAY(S) zolpidem (AMBIEN) 5 mg tablet TAKE 1 TABLET BY MOUTH EVERY DAY AT BEDTIME for 30 days RABEprazole (ACIPHEX) 2 (more content not included)... Normal [facility] HISTORY PHYSICALon HISTORY PHYSICAL HNO ID: [id number] Author: Ro Wooten DO Service: ? Author Type: Fellow Type: HANDP Filed: 03/03/2023 2:51 PM Note Text: [facility] NEPHROLOGY AND HYPERTENSION [facility] SERVICE DATE: 03/03/2023 SERVICE TIME: 2:42 PM REASON FOR CONSULT: I am asked to see this patient in consultation for my opinion regarding CKDIIIA. My recommendations will be communicated by way of shared medical record, fax, or mail. REQUESTING PHYSICIAN: Justin PRIMARY CARE PHYSICIAN: Jaelyn Li DO, DO CHIEF COMPLAINT: CKDIIIA HPI: Ms. Martin is a 32 year old female who presents with a h/o CKDIIIa, IBS, fibromyalgia and abdominal pain who presented to clinic today to discuss CKDIIA. Surgical History: 2010: Cholecystectomy 09/16/2020: hysterectomy and had post operative infection of her skin and related to her stiches she states. - Noted that Pts GFR appears to drop post hysterectomy 2015: GFR>60 Has been getting b/l LE edema as well as notable facial edema. Pt admits also that she has urinary frequency, as well as urgency. When she is in a flair up of her symptoms she feels that she cannot fully empty her bladder. Never had a UTI that she is aware of. UA had LE and WBC previously, no RBC. Pt admits to night sweats, hot flashes, has lost about 20lbs (intentionally), she states that she can gain ~8lbs sometimes in fluid, which can go up her thighs b/l. Notes that she has edema in her b/l LE can sometimes get worse during the day. Pt states that your symptoms have been getting worse steadily. Has had EGD (ulcerative esophagitis on PPI), colonoscopy - nothing found on colonoscopy. Has been getting chronic diarrhea, which is somewhat improved. Welchol has helped with diarrhea. She has chronic nausea as well, she has periods where she cannot drink due to this. Pt admits to feeling light headed while in bed occasionally as well. Denies gross hematuria. Admits that sometimes she has had foamy urine. Last albumin 4.0. BP at home (bicep cuff) has been about ~137/147 at times as well. Pt was on HCTZ 12.5 but his has been stopped, this was for edema and not for her BP. Pt states that she recently saw her PCP and that she ahs started on a diet for her HTN has not been started on mediations. Has been on Raveprazole for her GERD. Does not get recurrent sinus infection, no eyes changes. Renal Us: 12/16/22: HISTORY: ORDERING SYSTEM PROVIDED HISTORY: Reason for Exam: ckd stage 3 FINDINGS: The right kidney measures 8.7 x 4.0 x 3.9 cm and the left kidney measures 8.3 x 3.9 x 3.5 cm. There is no evidence of hydronephrosis or perinephric fluid collections. Right extrarenal pelvis is again identified. No contour deforming upper hypoechoic renal cortical lesion is identified. Prevoid urinary bladder volume is 162 mL and the postvoid urinary bladder volume is 7 mL. No focal bladder lesion is identified. Color Doppler analysis reveals bilateral ureteral jets. IMPRESSION: Unremarkable bilateral renal and urinary bladder ultrasound. Recent Admissions: CKD Stage IIIA PROTEINURIA: Will obtain UA today HYPERKALEMIA: None noted on previous labs (4.4) on 11/2022 METABOLIC ACIDOSIS: None on previous labs (HCO3: 30) Repeat labs today SECONDARY HYPERPARATHYROIDISM: PTH: 57 (11/2022) Previous C and Phos Wnl Will repeat today HYPERTENSION Newly noted, Pt following with PCP currently doing lifestyle changes PREVENTION: Crestor 5mg Family History: Father: CKD - stable per Pt - H/o DM/HTN Nephrolithiasis: None seen on prior US NSAID Use: Denies NSAID use MEDICATION MANAGEMENT: Medications reviewed for accuracy with the patient and doses were confirmed and adjusted for current level of renal function. PAST MEDICAL HISTORY: PAST MEDICAL HISTORY Diagnosis Date CKD (chronic kidney disease) stage 3, GFR 30-59 ml/min (HCC) Essential hypertension Fibromyalgia Generalized anxiety disorder IBS (irritable bowel syndrome) PAST SURGICAL HISTORY: PAST SURGICAL HISTORY Procedure Laterality Date TOTAL ABDOM HYSTERECTOMY FAMILY HISTORY: FAMILY HISTORY Problem Relation Age of Onset Diabetes Father Hypertension Father other (ckd) Father SOCIAL HISTORY: Social History Tobacco Use Smoking status: Never Smokeless tobacco: Never Substance Use Topics Alcohol use: Not Currently Drug use: Yes Types: Marijuana Comment: Medical marijuana PRN MEDICATIONS: DULoxetine (CYMBALTA) 20 mg capsule 2 CAP(S) ORALLY DAILY FOR 30 DAY(S) zolpidem (AMBIEN) 5 mg tablet TAKE 1 TABLET BY MOUTH EVERY DAY AT BEDTIME for 30 days RABEprazole (ACIPHEX) 20 mg tablet Take 20 mg by mouth. colesevelam (WELCHOL) 625 mg tablet TAKE 3 TABLETS BY MOUTH EVERY DAY Oral for 90 hydrocodone/acetaminophen (VICODIN ORAL) Take 325 mg by mouth two times a day. fluticasone (FLONASE) 50 mcg/actuation nasal spray Use 2 Sprays in each nostril once daily. Ri (more content not included)... Normal [facility] URINALYSIS, REFLEX MICROSCOP ICon 03-03-2023 Bilirubin Ql (U) Negative Normal Negative [facility] Comment on above: Order Comment: Speci men Type: URINE SPECIMEN Ordering Facility: [facility] Address: [address] [place] [address] Performed By: #### L [id number] #### [facility] CLIA [id number] [facility] [place] [address] [place] Clarity (Unsp spec) Clear Normal Clear [facility] Comment on above: Order Comment: Speci men Type: URINE SPECIMEN Ordering Facility: [facility] Address: [address] [place] [address] Performed By: #### L [id number] #### [facility] CLIA [id number] [facility] [place] [address] [place] Color (U) Light Yellow Normal Yellow [facility] Comment on above: Order Comment: Speci men Type: URINE SPECIMEN Ordering Facility: [facility] Address: [address] [place] [address] Performed By: #### L [id number] #### [facility] CLIA [id number] [address] [place] [address] [place] [place] Glucose Test strip (U) [Mass/Vol] Negative Normal Trace, Negative [facility] Comment on above: Order Comment: Speci men Type: URINE SPECIMEN Ordering Facility: [facility] Address: [address] [place] [address] Performed By: #### L [id number] #### [facility] CLIA [id number] [address] [place] [address] [place] Hemoglobin Ql (U) Negative Normal Negative, Trace [facility] Comment on above: Order Comment: Speci men Type: URINE SPECIMEN Ordering Facility: [facility] Address: [address] [place] [address] Performed By: #### L [id number] #### [facility] CLIA [id number] [address] [place] [address] [place] Ketones Ql (U) Negative Normal Negative, Trace [facility] Comment on above: Order Comment: Speci men Type: URINE SPECIMEN Ordering Facility: [facility] Address: [address] [place] [address] Performed By: #### L [id number] #### [facility] CLIA [id number] [address] [place] [address] [place] Leukocyte esterase Test strip Ql (U) 75 Matthew/uL Abnormal Negative, 25 Matthew/uL [facility] Comment on above: Order Comment: Speci men Type: URINE SPECIMEN Ordering Facility: [facility] Address: [address] [place] [address] Performed By: #### L [id number] #### [facility] CLIA [id number] [address] [place] [address] [place] Nitrite Ql (U) Negative Normal Negative [facility] Comment on above: Order Comment: Speci men Type: URINE SPECIMEN Ordering Facility: [facility] Address: [address] [place] [address] Performed By: #### L [id number] #### [facility] CLIA [id number] [facility] [place] [address] [place] pH (U) 7.0 [pH] Normal 5.0-8.0 [facility] Comment on above: Order Comment: Speci men Type: URINE SPECIMEN Ordering Facility: [facility] Address: [address] [place] [address] Performed By: #### L [id number] #### [facility] CLIA [id number] [address] [place] [address] [place] Protein (U) [Mass/Vol] Negative Normal Trace , Negative [facility] Comment on above: Order Comment: Speci men Type: URINE SPECIMEN Ordering Facility: [facility] Address: [address] [place] [address] Performed By: #### L [id number] #### [facility] CLIA [id number] [address] [place] [address] [place] Specific gravity (U) [Rel density] 1.008 Normal 1.005-1.03 0 [facility] Comment on above: Order Comment: Speci men Type: URINE SPECIMEN Ordering Facility: [facility] Address: [address] [place] [address] Performed By: #### L [id number] #### [facility] CLIA [id number] [address] [place] [address] [place] Urobilinogen Ql (U) Negative Normal Negative [facility] Comment on above: Order Comment: Speci men Type: URINE SPECIMEN Ordering Facility: [facility] Address: [address] [place] [address] Performed By: #### L [id number] #### [facility] CLIA [id number] [address] [place] [address] [place] Bilirubin Ql (U) Negative Negative [facility] Clarity (Unsp spec) [facility] Color (U) Light Yellow Yellow [facility] Glucose Test strip (U) [Mass/Vol] Negative Trace, Negative [facility] Hemoglobin Ql (U) Negative Negative, Trace [facility] Ketones Ql (U) Negative Negative, Trace [facility] Leukocyte esterase Test strip Ql (U) 75 Matthew/uL Abnormal Negative, 25 Matthew/uL [facility] Nitrite Ql (U) Negative Negative [facility] pH (U) 7.0 [pH] 5.0 - 8.0 [facility] Protein (U) [Mass/Vol] Negative Trace , Negative [facility] Specific gravity (U) [Rel density] 1.008 1.005 - 1.030 [facility] Urobilinogen Ql (U) Negative Negative [facility] US RENALon 12-23-2022 US RENAL ORIGINAL EXAMINATION: ULTRASOUND OF THE KIDNEYS 12/23/2022 10:21 am COMPARISON: CT of the abdomen and pelvis dated 09/04/2022. HISTORY: ORDERING SYSTEM PROVIDED HISTORY: Reason for Exam: ckd stage 3 FINDINGS: The right kidney measures 8.7 x 4.0 x 3.9 cm and the left kidney measures 8.3 x 3.9 x 3.5 cm. There is no evidence of hydronephrosis or perinephric fluid collections. Right extrarenal pelvis is again identified. No contour deforming upper hypoechoic renal cortical lesion is identified. Prevoid urinary bladder volume is 162 mL and the postvoid urinary bladder volume is 7 mL. No focal bladder lesion is identified. Color Doppler analysis reveals bilateral ureteral jets. IMPRESSION: Unremarkable bilateral renal and urinary bladder ultrasound. Interpreted by: Adrian Alfaro Preliminary Report By: Adrian Alfaro Electronically signed By Adrian Alfaro Dictated Date: 12/23/2022 3:50:19 PM Prelim Date: 12/23/2022 3:52:40 PM Sign Date: 12/23/2022 3:52:40 PM Ordering Provider: HAILY Horn [facility] ([place]) LYPCRon 12-21-2022 Lyme PCR Not detected Normal [facility] ([place]) Comment on above: Result Comment: NOT DETECTED - A negative result does not rule out the presence of PCR inhibitors in the patient specimen or assay specific nucleic acid in concentrations below the level of detection by the assay. Blood and CSF specimens have poor clinical sensitivity for detection of Borrelia burgdorferi by PCR. INTERPRETIVE INFORMATION: Borrelia Species DNA Detection by PCR This test was developed and its performance characteristics determined by [facility]. It has not been cleared or approved by the [place] Food and Drug Administration. This test was performed in a CLIA certified laboratory and is intended for clinical purposes. Performed By: [facility] [address] [place] [address] Driver License Examiner: Benny Purdy MD, PhD CLIA Number: [id number] Performed By: #### E BV, LYPCR ####[address] [place] [address]#### PHOS, VIDH, GFR, BMP ####[place] [address]#### SPE, PTH ####[place] [address] Lyme Source Plasma Normal [facility] ([place]) Comment on above: Performed By: #### E BV, LYPCR ####Low [address] [place] [address]#### PHOS, VIDH, GFR, BMP ####[place] [address]#### SPE, PTH ####[place] [address] EBVon 12-20-2022 EBV IgG Positive Normal Negative [facility] ([place] Comment on above: Result Comment: INTE RPRETATION OF EBV IgG BY EIA: Negative: No detectable EBV IgG antibody. Result does not exclude EBV infection. Positive: EBV IgG antibody detected. Indicative of current or past infection. Equivocal: Equivocal for antibodies to EBV. Repeat testing if still indicated. Performed By: #### E BV, LYPCR ####Low [address] [place] [address]#### PHOS, VIDH, GFR, BMP ####Low Ewr[address] [place], [place] [address]#### SPE, PTH ####[place] [address] [place] [address] EBV IgM Negative Normal Negative [facility] ([place]) Comment on above: Result Comment: INTE RPRETATION OF EBV IgM BY EIA: Negative: No detectable EBV IgM antibody. Result does not exclude EBV infection. An additional sample should be tested within 5-7 days if early infection is suspected. Positive: EBV IgM antibody detected. May be indicative of current or recent infection. Equivocal: Equivocal for antibodies to EBV. Repeat testing if still indicated. Performed By: #### E BV, LYPCR ####Low Lcchjbf[address]264[address] [place] [address]#### PHOS, VIDH, GFR, BMP ####Low [address] [place] [address]#### SPE, PTH ####[place] [address] UPEon 12-19-2022 UPE Interpretation There was no appreci able protein detected by electrophoresis of concentrated urine. Normal [facility] ([place]) Comment on above: Result Comment: Elec tronically Signed by: ROYER ARRINGTON MD 12/19/2022 13:55 EDT Performed By: #### U PE ####[facility] [address] [place] [id number] SPEon 12-17-2022 SPE Interpretation Normal serum protein electrophoresis pattern. No abnormality detected. Normal [facility] ([place] Comment on above: Result Comment: Elec tronically Signed by: ROYER ARRINGTON MD 12/17/2022 14:24 EDT Performed By: #### E BV, LYPCR ####Low Hdtmvqrob[address] [place] [id number]#### PHOS, VIDH, GFR, BMP ####Low [address] [place] [address]#### SPE, PTH ####[place] [address] Albumin 4.0 G/dL Normal 3.3-5.0 [facility] ([place] Comment on above: Performed By: #### E BV, LYPCR ####Low [address] [place], [place] [address]#### PHOS, VIDH, GFR, BMP ####Low Z[address]ub[address] [place], [place] [address]#### SPE, PTH ####[place] [address] Alpha 1 0.2 G/dL Normal 0.1-0.4 [facility] ([place] Comment on above: Performed By: #### E BV, LYPCR ####Low [address] [place], [place] [address]#### PHOS, VIDH, GFR, BMP ####Low H[address] [place] [address]#### SPE, PTH ####[place] [address] Alpha 2 0.8 G/dL Normal 0.6-1.2 [facility] ([place] Comment on above: Performed By: #### E BV, LYPCR ####Low [address] [place], [place] [address]#### PHOS, VIDH, GFR, BMP ####Low X[address] [place], [place] [address]#### SPE, PTH ####[place] [address] Beta 0.8 G/dL Normal 0.6-1.3 [facility] ([place] Comment on above: Performed By: #### E BV, LYPCR ####[address]fx[address] [place], [place] [address]#### PHOS, VIDH, GFR, BMP ####Low [address] [place], [place] [address]#### SPE, PTH ####[place] [address] Gamma 1.0 G/dL Normal 0.7-1.6 [facility] ([place] Comment on above: Performed By: #### E BV, LYPCR ####Low Aksclqgbq[address] [place] [id number]#### PHOS, VIDH, GFR, BMP ####[address] Frwh[address] [place], [place] [address]#### SPE, PTH ####[place] [address] .GFRon 12-16-2022 GFR Non- 59 ml/min/1.73sqm Normal [facility] ([place] Comment on above: Result Comment: GFR Population mean for , Non- Americans Ages 20-29 = 116 mL/min/1.73 sq.m. Ages 30-39 = 107 mL/min/1.73 sq.m. Ages 40-49 = 99 mL/min/1.73 sq.m. Ages 50-59 = 93 mL/min/1.73 sq.m. Ages 60-69 = 85 mL/min/1.73 sq.m. Ages 70+ = 75 mL/min/1.73 sq.m. Chronic Kidney Disease: Less than 60 mL/min/1.73 square meters End Stage Renal Disease: Less than 15 mL/min/1.73 square meters Performed By: #### E BV, LYPCR ####Low [address] [place] [address]#### PHOS, VIDH, GFR, BMP ####[facility] [place] [address]#### SPE, PTH ####[place] [address] GFR 72 ml/min/1.73sqm Normal [facility] ([place] Comment on above: Result Comment: GFR Population mean for , Non- Americans Ages 20-29 = 116 mL/min/1.73 sq.m. Ages 30-39 = 107 mL/min/1.73 sq.m. Ages 40-49 = 99 mL/min/1.73 sq.m. Ages 50-59 = 93 mL/min/1.73 sq.m. Ages 60-69 = 85 mL/min/1.73 sq.m. Ages 70+ = 75 mL/min/1.73 sq.m. Chronic Kidney Disease: Less than 60 mL/min/1.73 square meters End Stage Renal Disease: Less than 15 mL/min/1.73 square meters Performed By: #### E BV, LYPCR ####[facility] OttUtvnt[address]qto[address] [place], [place] [address]#### PHOS, VIDH, GFR, BMP ####[address] [address]#### SPE, PTH ####[address] [address] BMPon 12-16-2022 BUN/Creatinine Ratio 13 ratio Normal 7-27 [facility] [place] Comment on above: Performed By: #### E BV, LYPCR ####[place] [address] [place], [place] [address]#### PHOS, VIDH, GFR, BMP ####[place] [address]#### SPE, PTH ####[address] [address] Calcium [Mass/Vol] 8.8 mg/dL Normal 8.4-10.2 [facility] ([place]) Comment on above: Performed By: #### E BV, LYPCR ####[address] [place], [place] [address]#### PHOS, VIDH, GFR, BMP ####[address] [address]#### SPE, PTH ####[address] [address] Chloride [Moles/Vol] 105 mmol/L Normal 98-107 [facility] [place] Comment on above: Performed By: #### E BV, LYPCR ####[place] OttDebbnulrc5504 [place], [place] [address]#### PHOS, VIDH, GFR, BMP ####[place] [address] [place], [place] [address]#### SPE, PTH ####[address] [address] CO2 [Moles/Vol] 30 mmol/L High 22-29 [facility] ([place]) Comment on above: Performed By: #### E BV, LYPCR ####[facility]441 [place], [place] [address]#### PHOS, VIDH, GFR, BMP ####[place] [address]#### SPE, PTH ####[address] [address] Creatinine [Mass/Vol] 1.06 mg/dL High 0.55-1.02 [facility] ([place]) Comment on above: Performed By: #### E BV, LYPCR ####[facility] [place] [address]#### PHOS, VIDH, GFR, BMP ####[place] [address]#### SPE, PTH ####[address] [address] Electrolyte Balance 9.0 mEq/L Normal 4.0-15.0 [facility] ([place]) Comment on above: Performed By: #### E BV, LYPCR ####[facility] Hospital[facility]zqkvjgtx6996 [place] [id number]#### PHOS, VIDH, GFR, BMP ####[place] [address]#### SPE, PTH ####[address] [address] Glucose [Mass/Vol] 92 mg/dL Normal 70-105 [facility] ([place]) Comment on above: Performed By: #### E BV, LYPCR ####[facility] [place] [address]#### PHOS, VIDH, GFR, BMP ####[place] [address]#### SPE, PTH ####[facility] [place] [address] Potassium [Moles/Vol] 4.4 mmol/L Normal 3.5-5.1 [facility] ([place]) Comment on above: Performed By: #### E BV, LYPCR ####[place] S[address] [place], [place] [address]#### PHOS, VIDH, GFR, BMP ####[facility]832 [place] [address]#### SPE, PTH ####[address] [address] Sodium [Moles/Vol] 144 mmol/L Normal 136-145 [facility] ([place]) Comment on above: Performed By: #### E BV, LYPCR ####[place] [address]aQekhnzbcc[address] [place], [place] [address]#### PHOS, VIDH, GFR, BMP ####[facility]832 [place] [id number]#### SPE, PTH ####[place] [address] Urea nitrogen [Mass/Vol] 14 mg/dL Normal 7-18 [facility] ([place] Comment on above: Performed By: #### E BV, LYPCR ####Low [address]Act[address] [place], [place] [address]#### PHOS, VIDH, GFR, BMP ####[facility]832 [place] [address]#### SPE, PTH ####[address] [address] LABORATORYOrdered By: SYSTEM SYSTEM on 12-16-2022 25-hydroxyvitamin D3 [Mass/Vol] 59.4 ng/mL Invalid Interpretation Code AO ADM SS Comment on above: Interpretive Data: I nterpretive Values Based on Total 25(OH) Vitamin D: Deficient <20 ng/mL Insufficient 20 - <30 ng/mL Sufficient 30-100 ng/mL Calcium [Mass/Vol] 8.8 mg/dL Invalid Interpretation Code 8.4 - 10.2 mg/dL AO ADM SS Chloride [Moles/Vol] 105 mmol/L Invalid Interpretation Code 98 - 107 mmol/L AO ADM SS CO2 [Moles/Vol] 30 mmol/L Invalid Interpretation Code 22 - 29 mmol/L AO ADM SS Creatinine [Mass/Vol] 1.06 mg/dL Invalid Interpretation Code 0.55 - 1.02 mg/dL AO ADM SS Electrolyte Balance 9.0 mEq/L Invalid Interpretation Code 4.0 - 15.0 mEq/L AO ADM SS GFR/1.73 sq M.predicted among blacks MDRD (S/P/Bld) [Vol rate/Area] 72 ml/min/1.73sqm Invalid Interpretation Code AO Chemistry S Comment on above: Interpretive Data: GFR Population mean for , Non- Americans Ages 20-29 = 116 mL/min/1.73 sq.m. Ages 30-39 = 107 mL/min/1.73 sq.m. Ages 40-49 = 99 mL/min/1.73 sq.m. Ages 50-59 = 93 mL/min/1.73 sq.m. Ages 60-69 = 85 mL/min/1.73 sq.m. Ages 70+ = 75 mL/min/1.73 sq.m. Chronic Kidney Disease: Less than 60 mL/min/1.73 square meters End Stage Renal Disease: Less than 15 mL/min/1.73 square meters GFR/1.73 sq M.predicted among non-blacks MDRD (S/P/Bld) [Vol rate/Area] 59 ml/min/1.73sqm Invalid Interpretation Code AO Chemistry S Comment on above: Interpretive Data: GFR Population mean for , Non- Americans Ages 20-29 = 116 mL/min/1.73 sq.m. Ages 30-39 = 107 mL/min/1.73 sq.m. Ages 40-49 = 99 mL/min/1.73 sq.m. Ages 50-59 = 93 mL/min/1.73 sq.m. Ages 60-69 = 85 mL/min/1.73 sq.m. Ages 70+ = 75 mL/min/1.73 sq.m. Chronic Kidney Disease: Less than 60 mL/min/1.73 square meters End Stage Renal Disease: Less than 15 mL/min/1.73 square meters Glucose [Mass/Vol] 92 mg/dL Invalid Interpretation Code 70 - 105 mg/dL AO ADM SS Parathyrin.intact [Mass/Vol] 55.7 pg/mL Invalid Interpretation Code 18.5 - 88.0 pg/mL AH ADM SS Phosphate [Mass/Vol] 3.4 mg/dL Invalid Interpretation Code 2.7 - 4.5 mg/dL AO ADM SS Potassium [Moles/Vol] 4.4 mmol/L Invalid Interpretation Code 3.5 - 5.1 mmol/L AO ADM SS Sodium [Moles/Vol] 144 mmol/L Invalid Interpretation Code 136 - 145 mmol/L AO ADM SS Urea nitrogen [Mass/Vol] 14 mg/dL Invalid Interpretation Code 7 - 18 mg/dL AO ADM SS Urea nitrogen/Creatinine [Mass ratio] 13 ratio Invalid Interpretation Code 7 - 27 ratio AO ADM SS LABORATORYOrdered By: Philip Lin on 12-16-2022 Protein [Mass/Vol] 6.8 G/dL Invalid Interpretation Code 5.7 - 8.2 G/dL AH ADM SS Comment on above: Interpretive Data: * *Note - New Reference Range in effect 19 PHOSon 12-16-2022 Phosphate [Mass/Vol] 3.4 mg/dL Normal 2.7-4.5 [facility] [place] Comment on above: Performed By: #### E BV, LYPCR ####Low [address] [place] [address]#### PHOS, VIDH, GFR, BMP ####[place] [address]#### SPE, PTH ####[address] [address] PTHon 12-16-2022 PTH, Intact 55.7 pg/mL Normal 18.5-88.0 [facility] ([place]) Comment on above: Performed By: #### E BV, LYPCR ####[facility] Hospital[facility]gcwhypaq3820 [place] [id number]#### PHOS, VIDH, GFR, BMP ####[place] [address] [place] [address]#### SPE, PTH ####[place] [address] SPEon 12-16-2022 Total Protein 6.8 G/dL Normal 5.7-8.2 [facility] ([place]) Comment on above: Result Comment: No te - New Reference Range in effect 19 Performed By: #### E BV, LYPCR ####Low X[address]fy[address]r15[address] [place] [address]#### PHOS, VIDH, GFR, BMP ####[place] [address]#### SPE, PTH ####[place] [address] VIDHon 12-16-2022 Vit. D 25-Hydroxy 59.4 ng/mL Normal [facility] ([place]) Comment on above: Result Comment: Inte rpretive Values Based on Total 25(OH) Vitamin D: Deficient <20 ng/mL Insufficient 20 - <30 ng/mL Sufficient 30-100 ng/mL Performed By: #### E BV, LYPCR ####[place] OttRbdiqhqri3563 [place] [address]#### PHOS, VIDH, GFR, BMP ####[place] [address]#### SPE, PTH ####[place] [address] SMRPon 12-04-2022 nRNP/Sm IgG Autoabs <1.0 NEG Normal <1.0 NEGATIVE [facility] ([place]) Comment on above: Result Comment: Perf orming Organization Information: [facility] [address] [place] [address] JEANNE DRISCOLL MD,PHD,ARIA Performed By: #### S SAB, SCL70, CBC, ADIFF, SMRP, CK, ANEU ####[facility]832 [place] [address]#### ANISH, RF, CCP ####[place] [address] CCPon 08-06-2023 Cyclic Citrullinated Peptide <20.0 Normal <=19.9 [facility] ([place]) Comment on above: Result Comment: Cycl ic Citrullinated IgG Interpretation: Result Units Negative <20 Weak Positive 20-39 Moderate Positive 40-59 Strong Positive >=60 A positive result indicates the presence of IgG anti-CCP3 antibodies and suggests the possibility of RA. A negative result indicates no CCP3 antibody or levels below the negative cut-off of the assay. Results of this assay should be used in conjunction with clinical findings and other serological tests. These test results were obtained with the [employer] Quanta Lite CCP3 IgG AVELINA. Anti-CCP values obtained with different manufacturers' assay methods may not be used interchangeably. Performed By: #### S SAB, SCL70, CBC, ADIFF, SMRP, CK, ANEU ####[address] [address]#### ANISH, RF, CCP ####[place] [address] ANAon 11-28-2022 Nuclear Ab IF (S) [Titer] 40 {titer} Normal Neg 40 [facility] ([place]) Comment on above: Result Comment: ANISH Screen and Titer methodology is an immunofluorescent technique utilizing Hep2 Substrate. Performed By: #### S SAB, SCL70, CBC, ADIFF, SMRP, CK, ANEU #### [address] [address] #### ANISH, RF, CCP #### [place] [id number] RFon 11-28-2022 Rheumatoid Factor <6.0 Normal <=5.9 [facility] ([place]) Comment on above: Result Comment: RF I gM Antibody by Enzyme Immunoassay: Negative < or = 6 Positive > 6 A positive result indicates the presence of RF antibodies and suggests the possibility of rheumatoid arthritis. A negative result indicates no RF IgM antibody or levels below the negative cut-off of the assay. Results of this assay should be used in conjunction with clinical findings and other serological tests. These results were obtained with the [employer] QUANTA Lite RF IgM AVELINA. RF IgM values obtained with different manufacturers' assay methods may not be used interchangeably. The magnitude of the reported IgM levels cannot be correlated to an endpoint titer. Performed By: #### S SAB, SCL70, CBC, ADIFF, SMRP, CK, ANEU #### [address] [address] #### ANISH, RF, CCP #### [address] [address] YAF60ay 11-28-2022 Scleroderma Ab, IgG Qualitative Negative Normal Negative [facility] ([place]) Comment on above: Result Comment: Perf ormed By: [place] [address] Barkeeper: Lorne Matamoros III, M.D. CLIA#: [id number] Performed By: #### S SAB, SCL70, CBC, ADIFF, SMRP, CK, ANEU ####[place] [address]#### ANISH, RF, CCP ####[place] [address] Scleroderma IgG Ab <0.2 Normal <1.0 [facility] ([place]) Comment on above: Result Comment: Scl- 70/Scleroderma antibody test is used as an aid in diagnosis of systemic sclerosis especially the diffuse cutaneous form. A negative result cannot rule out systemic sclerosis. The final interpretation should consider clinical picture and other test results such as anti-centromere antibody. Test Methodology: Multiplex flow immunoassay. Performed By: [place] [address] Barkeeper: Lorne Matamoros III, M.D. CLIA#: [id number] Performed By: #### S SAB, SCL70, CBC, ADIFF, SMRP, CK, ANEU ####[place] [address]#### ANISH, RF, CCP ####[address] [address] SSABon 11-28-2022 Anti-SSB Qual Negative Normal Negative [facility] ([place]) Comment on above: Result Comment: Anti -SSB (anti-La) antibody is used as an aid in diagnosis of a variety of systemic autoimmune diseases, especially for Sjogren's syndrome and systemic lupus erythematosus. Clinical correlation is required. Test Methodology: Multiplex flow immunoassay. Performed By: [place] [address] Barkeeper: Lorne Matamoros III, M.D. CLIA#: [id number] Performed By: #### S SAB, SCL70, CBC, ADIFF, SMRP, CK, ANEU #### [place] [address] #### ANISH, RF, CCP #### [address] [address] SS-A Antibody <0.2 Normal <1.0 [facility] ([place]) Comment on above: Result Comment: Perf ormed By: [place] [address] Barkeeper: Lorne Matamoros III, M.D. CLIA#: [id number] Performed By: #### S SAB, SCL70, CBC, ADIFF, SMRP, CK, ANEU #### [place] [address] #### ANISH, RF, CCP #### [address] [address] SS-B Antibody <0.2 Normal <1.0 [facility] ([place]) Comment on above: Result Comment: Perf ormed By: [place] [address] Barkeeper: Lorne Matamoros III, M.D. CLIA#: [id number] Performed By: #### S SAB, SCL70, CBC, ADIFF, SMRP, CK, ANEU #### [place] [address] #### ANISH, RF, CCP #### [address] [address] SSA Antibody Qualitative Negative Normal Negative [facility] ([place] Comment on above: Result Comment: Anti -SSA (anti-Ro) antibody is used as an aid in diagnosis of a variety of systemic autoimmune diseases, Sjogren's syndrome among others. Clinical correlation is required. Test Methodology: Multiplex flow immunoassay. ??? Performed By: [place] [address] Barkeeper: Karthik Duke IIIIA#: [id number] Performed By: #### S SAB, SCL70, CBC, ADIFF, SMRP, CK, ANEU #### [place] [address] #### ANISH, RF, CCP #### [address] [address] .Auto Diffon 11-27-2022 Basophil, Absolute 0.0 10 3/mcL Normal 0.0-0.2 [facility] [place] Comment on above: Performed By: #### S SAB, SCL70, CBC, ADIFF, SMRP, CK, ANEU #### [place] [address] #### ANISH, RF, CCP #### [address] [address] Basophils/100 WBC (Bld) 0.3 % Normal 0.0-2.5 [facility] ([place] Comment on above: Performed By: #### S SAB, SCL70, CBC, ADIFF, SMRP, CK, ANEU #### [place] [address] #### ANISH, RF, CCP #### [address] [address] Eosinophil, Absolute 0.2 10 3/mcL Normal 0.0-0.4 [facility] ([place]) Comment on above: Performed By: #### S SAB, SCL70, CBC, ADIFF, SMRP, CK, ANEU #### [place] [address] #### ANISH, RF, CCP #### [address] [address] Eosinophils/100 WBC (Bld) 2.3 % Normal 0.0-7.0 [facility] ([place]) Comment on above: Performed By: #### S SAB, SCL70, CBC, ADIFF, SMRP, CK, ANEU #### [place] [address] #### ANISH, RF, CCP #### [address] [address] Lymphocyte, Absolute 2.4 10 3/mcL Normal 0.8-3.9 [facility] ([place]) Comment on above: Performed By: #### S SAB, SCL70, CBC, ADIFF, SMRP, CK, ANEU #### [address] [address] #### ANISH, RF, CCP #### [address] [address] Lymphocytes/100 WBC (Bld) 31.2 % Normal 10.0-50.0 [facility] ([place]) Comment on above: Performed By: #### S SAB, SCL70, CBC, ADIFF, SMRP, CK, ANEU #### [place] [address] #### ANISH, RF, CCP #### [address] [address] Monocyte, Absolute 0.5 10 3/mcL Normal 0.2-1.0 [facility] ([place] Comment on above: Performed By: #### S SAB, SCL70, CBC, ADIFF, SMRP, CK, ANEU #### [address] [address] #### ANISH, RF, CCP #### [address] [address] Monocytes/100 WBC (Bld) 6.4 % Normal 1.7-13.0 [facility] ([place]) Comment on above: Performed By: #### S SAB, SCL70, CBC, ADIFF, SMRP, CK, ANEU #### [address] [address] #### ANISH, RF, CCP #### [address] [address] Neutrophils/100 WBC (Bld) 59.8 % Normal 37.0-80.0 [facility] ([place]) Comment on above: Performed By: #### S SAB, SCL70, CBC, ADIFF, SMRP, CK, ANEU #### [place] [address] #### ANISH, RF, CCP #### [place] [address] .NEUABSon 11-27-2022 Neutrophil, Absolute 4.5 10 3/mcL Normal 2.9-6.2 [facility] ([place] Comment on above: Performed By: #### S SAB, SCL70, CBC, ADIFF, SMRP, CK, ANEU #### [place] [address] #### ANISH, RF, CCP #### [place] [address] CBCon 11-27-2022 Erythrocyte distribution width (RBC) [Ratio] 12.1 % Normal 11.5-14.5 [facility] ([place]) Comment on above: Performed By: #### S SAB, SCL70, CBC, ADIFF, SMRP, CK, ANEU #### [place] [address] #### ANISH, RF, CCP #### [place] [address] Hematocrit (Bld) [Volume fraction] 43.0 % Normal 37.0-47.0 [facility] ([place]) Comment on above: Performed By: #### S SAB, SCL70, CBC, ADIFF, SMRP, CK, ANEU #### [place] [address] #### ANISH, RF, CCP #### [place] [address] Hgb 14.7 G/dL Normal 12.0-16.0 [facility] ([place]) Comment on above: Performed By: #### S SAB, SCL70, CBC, ADIFF, SMRP, CK, ANEU #### [place] [address] #### ANISH, RF, CCP #### [place] [address] MCH (RBC) [Entitic mass] 30.4 pg Normal 27.0-31.2 [facility] ([place]) Comment on above: Performed By: #### S SAB, SCL70, CBC, ADIFF, SMRP, CK, ANEU #### [address] [address] #### ANISH, RF, CCP #### [address] [address] MCHC 34.3 G/dL Normal 33.0-37.0 [facility] ([place] Comment on above: Performed By: #### S SAB, SCL70, CBC, ADIFF, SMRP, CK, ANEU #### [place] [address] #### ANISH, RF, CCP #### [place] [address] MCV (RBC) [Entitic vol] 88.7 fL Normal 80.0-94.0 [facility] ([place]) Comment on above: Performed By: #### S SAB, SCL70, CBC, ADIFF, SMRP, CK, ANEU #### [place] [address] #### ANISH, RF, CCP #### [place] [address] Platelet 286 10 3/mcL Normal 130-400 [facility] ([place]) Comment on above: Performed By: #### S SAB, SCL70, CBC, ADIFF, SMRP, CK, ANEU #### [place] [address] #### ANISH, RF, CCP #### [place] [address] Platelet mean volume (Bld) [Entitic vol] 7.4 fL Normal 7.4-10.4 [facility] ([place]) Comment on above: Performed By: #### S SAB, SCL70, CBC, ADIFF, SMRP, CK, ANEU #### [place] [address] #### ANISH, RF, CCP #### [place] [address] RBC 4.85 10 6/mcL Normal 4.20-5.40 [facility] ([place]) Comment on above: Performed By: #### S SAB, SCL70, CBC, ADIFF, SMRP, CK, ANEU #### [address] [address] #### ANISH, RF, CCP #### [place] [address] WBC 7.5 10 3/mcL Normal 4.6-10.8 [facility] ([place]) Comment on above: Performed By: #### S SAB, SCL70, CBC, ADIFF, SMRP, CK, ANEU #### [place] [address] #### ANISH, RF, CCP #### [place] [address] CKon 11-27-2022 CK [Catalytic activity/Vol] 102 U/L Normal 26-192 [facility] ([place]) Comment on above: Performed By: #### S SAB, SCL70, CBC, ADIFF, SMRP, CK, ANEU #### [place] [address] #### ANISH, RF, CCP #### [place] [address] FT4on 11-12-2022 Free T4 [Mass/Vol] 0.76 ng/dL Normal 0.76-1.46 [facility] ([place]) Comment on above: Performed By: #### S SAB, SCL70, CBC, ADIFF, SMRP, CK, ANEU #### [place] [address] #### NAISH, RF, CCP #### [place] [address] LABORATORYOrdered By: SYSTEM SYSTEM on 11-12-2022 Free T4 [Mass/Vol] 0.76 ng/dL Invalid Interpretation Code 0.76 - 1.46 ng/dL AO ADM SS Thyroglobulin Ab IA Qn 16 unit/mL Invalid Interpretation Code 15 - 60 unit/mL AH ADM SS Comment on above: Interpretive Data: * *Note - New Reference Range in effect 19 TPO Ab IA Qn unit/mL Invalid Interpretation Code 0 - 60 unit/mL AH ADM SS Comment on above: Interpretive Data: * *Note - New Reference Range in effect 19 TSH Qn 1.69 m[IU]/L Invalid Interpretation Code 0.36 - 3.74 mcIU/mL AO ADM SS THYABon 11-12-2022 anti-Thyroid Peroxidase <28 Normal 0-60 [facility] ([place]) Comment on above: Result Comment: No te - New Reference Range in effect 19 Performed By: #### S SAB, SCL70, CBC, ADIFF, SMRP, CK, ANEU #### [place] [address] #### ANISH, RF, CCP #### [place] [address] Thyroglobulin Ab 16 units/ml Normal 15-60 [facility] ([place]) Comment on above: Result Comment: No te - New Reference Range in effect 19 Performed By: #### S SAB, SCL70, CBC, ADIFF, SMRP, CK, ANEU #### [place] [address] #### ANISH, RF, CCP #### [place] [address] TSHon 11-12-2022 TSH Qn 1.69 m[IU]/L Normal 0.36-3.74 [facility] ([place]) Comment on above: Performed By: #### S SAB, SCL70, CBC, ADIFF, SMRP, CK, ANEU #### [place] [address] #### ANISH, RF, CCP #### [place] [address] CT ENTEROGRAPHY ABD/PELVIS W /CONTRASTon 09-05-2022 CT ENTEROGRAPHY ABD/PELVIS W/CONTRAST ORIGINAL HISTORY: Upper abdominal pain COMPARISON: CT 15 August 2022 TECHNIQUE: CT of the abdomen and pelvis following uncomplicated administration of intravenous and oral contrast, with sagittal and coronal reconstructions. This exam was performed according to our departmental dose optimization program, and includes the following measures where applicable: automated exposure control, adjustment of the mAs and/or kVp according to patient size and/or exam, and an iterative reconstruction algorithm. FINDINGS: The abdominal organs are unremarkable in appearance. Bowel is normal in caliber throughout. There is questionable mild mucosal enhancement at the last 7 or 8 cm of the ileum. There is more prominent mucosal enhancement at the distal sigmoid colon. Ileal jejunal fold pattern is maintained. The appendix is not identified. There is no free fluid. There is mild diastasis recti. IMPRESSION: Mild mucosal enhancement, most prominently in the distal sigmoid colon. This is at most mildly suggestive of inflammatory bowel disease. Interpreted by: James Diaz MD Preliminary Report By: James Diaz MD Electronically signed By James Diaz MD Dictated Date: 09/05/2022 3:41:00 PM Prelim Date: 09/05/2022 3:47:55 PM Sign Date: 09/05/2022 3:47:55 PM Ordering Provider: VIET Horn [facility] ([place]) .Auto Diffon 09-04-2022 Basophil, Absolute 0.0 10 3/mcL Normal 0.0-0.2 [facility] ([place]) Comment on above: Performed By: #### L IP, ANEU, GFR, ADIFF, CMP, CBC, ROSELYN ####[id number] [place], [place] [address] Basophils/100 WBC (Bld) 0.3 % Normal 0.0-2.5 [facility] ([place]) Comment on above: Performed By: #### L IP, ANEU, GFR, ADIFF, CMP, CBC, ROSELYN ####[id number] [place], [place] [address] Eosinophil, Absolute 0.1 10 3/mcL Normal 0.0-0.4 [facility] ([place]) Comment on above: Performed By: #### L IP, ANEU, GFR, ADIFF, CMP, CBC, ROSELYN ####[address] [place], [place] [address] Eosinophils/100 WBC (Bld) 1.1 % Normal 0.0-7.0 [facility] ([place]) Comment on above: Performed By: #### L IP, ANEU, GFR, ADIFF, CMP, CBC, ROSELYN ####[id number] [place], [place] [address] Lymphocyte, Absolute 3.1 10 3/mcL Normal 0.8-3.9 [facility] ([place]) Comment on above: Performed By: #### L IP, ANEU, GFR, ADIFF, CMP, CBC, ROSELYN ####[address] [place], [place] [address] Lymphocytes/100 WBC (Bld) 36.4 % Normal 10.0-50.0 [facility] ([place]) Comment on above: Performed By: #### L IP, ANEU, GFR, ADIFF, CMP, CBC, ROSELYN ####[address] [place], [place] [address] Monocyte, Absolute 0.5 10 3/mcL Normal 0.2-1.0 [facility] [place] Comment on above: Performed By: #### L IP, ANEU, GFR, ADIFF, CMP, CBC, ROSELYN ####[address] [place], [place] [address] Monocytes/100 WBC (Bld) 6.4 % Normal 1.7-13.0 [facility] ([place]) Comment on above: Performed By: #### L IP, ANEU, GFR, ADIFF, CMP, CBC, ROSELYN ####[address] [place], [place] [address] Neutrophils/100 WBC (Bld) 55.8 % Normal 37.0-80.0 [facility] ([place]) Comment on above: Performed By: #### L IP, ANEU, GFR, ADIFF, CMP, CBC, ROSELYN ####[id number] [place], [place] [address] .GFRon 09-04-2022 GFR Non- 50 ml/min/1.73sqm Normal [facility] ([place]) Comment on above: Result Comment: GFR Population mean for , Non- Americans Ages 20-29 = 116 mL/min/1.73 sq.m. Ages 30-39 = 107 mL/min/1.73 sq.m. Ages 40-49 = 99 mL/min/1.73 sq.m. Ages 50-59 = 93 mL/min/1.73 sq.m. Ages 60-69 = 85 mL/min/1.73 sq.m. Ages 70+ = 75 mL/min/1.73 sq.m. Chronic Kidney Disease: Less than 60 mL/min/1.73 square meters End Stage Renal Disease: Less than 15 mL/min/1.73 square meters Performed By: #### L IP, ANEU, GFR, ADIFF, CMP, CBC, ROSELYN ####[address] [place], [place] [address] GFR 61 ml/min/1.73sqm Normal [facility] ([place]) Comment on above: Result Comment: GFR Population mean for , Non- Americans Ages 20-29 = 116 mL/min/1.73 sq.m. Ages 30-39 = 107 mL/min/1.73 sq.m. Ages 40-49 = 99 mL/min/1.73 sq.m. Ages 50-59 = 93 mL/min/1.73 sq.m. Ages 60-69 = 85 mL/min/1.73 sq.m. Ages 70+ = 75 mL/min/1.73 sq.m. Chronic Kidney Disease: Less than 60 mL/min/1.73 square meters End Stage Renal Disease: Less than 15 mL/min/1.73 square meters Performed By: #### L IP, ANEU, GFR, ADIFF, CMP, CBC, ROSELYN ####[address] [place], [place] [address] .NEUABSon 09-04-2022 Neutrophil, Absolute 4.7 10 3/mcL Normal 2.9-6.2 [facility] ([place]) Comment on above: Performed By: #### L IP, ANEU, GFR, ADIFF, CMP, CBC, ROSELYN ####[address] [place], [place] [address] AMYon 09-04-2022 Amylase [Catalytic activity/Vol] 51 U/L Normal 25-115 [facility] ([place]) Comment on above: Performed By: #### L IP, ANEU, GFR, ADIFF, CMP, CBC, ROSELYN ####[address] [place], [place] [address] CBCon 09-04-2022 Erythrocyte distribution width (RBC) [Ratio] 12.4 % Normal 11.5-14.5 [facility] ([place]) Comment on above: Performed By: #### L IP, ANEU, GFR, ADIFF, CMP, CBC, ROSELYN ####[address] [place], [place] [address] Hematocrit (Bld) [Volume fraction] 38.9 % Normal 37.0-47.0 [facility] ([place]) Comment on above: Performed By: #### L IP, ANEU, GFR, ADIFF, CMP, CBC, ROSELYN ####[address] [place], [place] [address] Hgb 13.2 G/dL Normal 12.0-16.0 [facility] ([place]) Comment on above: Performed By: #### L IP, ANEU, GFR, ADIFF, CMP, CBC, ROSELYN ####[address] [place], [place] [address] MCH (RBC) [Entitic mass] 30.1 pg Normal 27.0-31.2 [facility] ([place]) Comment on above: Performed By: #### L IP, ANEU, GFR, ADIFF, CMP, CBC, ROSELYN ####[address] [place], [place] [address] MCHC 34.0 G/dL Normal 33.0-37.0 [facility] ([place]) Comment on above: Performed By: #### L IP, ANEU, GFR, ADIFF, CMP, CBC, ROSELYN ####[address] [place], [place] [address] MCV (RBC) [Entitic vol] 88.5 fL Normal 80.0-94.0 [facility] ([place]) Comment on above: Performed By: #### L IP, ANEU, GFR, ADIFF, CMP, CBC, ROSELYN ####[address] [place], [place] [address] Platelet 328 10 3/mcL Normal 130-400 [facility] ([place]) Comment on above: Performed By: #### L IP, ANEU, GFR, ADIFF, CMP, CBC, ROSELYN ####[address] [place], [place] [address] Platelet mean volume (Bld) [Entitic vol] 6.7 fL Low 7.4-10.4 [facility] ([place]) Comment on above: Performed By: #### L IP, ANEU, GFR, ADIFF, CMP, CBC, ROSELYN ####[address] [place], [place] [address] RBC 4.39 10 6/mcL Normal 4.20-5.40 [facility] ([place]) Comment on above: Performed By: #### L IP, ANEU, GFR, ADIFF, CMP, CBC, ROSELYN ####[address] [place], [place] [address] WBC 8.4 10 3/mcL Normal 4.6-10.8 [facility] ([place]) Comment on above: Performed By: #### L IP, ANEU, GFR, ADIFF, CMP, CBC, ROSELYN ####[address] [place], [place] [address] CMPon 09-04-2022 Albumin Level 3.5 G/dL Normal 3.5-5.0 [facility] ([place]) Comment on above: Performed By: #### L IP, ANEU, GFR, ADIFF, CMP, CBC, ROSELYN ####[address] [place], [place] [address] Albumin/Globulin [Mass ratio] 1.3 {ratio} Normal 1.1-2.5 [facility] ([place]) Comment on above: Performed By: #### L IP, ANEU, GFR, ADIFF, CMP, CBC, ROSELYN ####[address] [place], [place] [address] ALP [Catalytic activity/Vol] 57 U/L Normal 40-135 [facility] ([place]) Comment on above: Performed By: #### L IP, ANEU, GFR, ADIFF, CMP, CBC, ROSELYN ####[address] [place], [place] [address] ALT [Catalytic activity/Vol] 23 U/L Normal 14-59 [facility] ([place]) Comment on above: Performed By: #### L IP, ANEU, GFR, ADIFF, CMP, CBC, ROSELYN ####[address] [place], [place] [address] AST [Catalytic activity/Vol] 17 U/L Normal 10-40 [facility] ([place]) Comment on above: Performed By: #### L IP, ANEU, GFR, ADIFF, CMP, CBC, ROSELYN ####[address] [place], [place] [address] Bili Total 0.2 mg/dL Normal 0.2-1.0 [facility] ([place]) Comment on above: Result Comment: Use of this assay is not recommended for patients undergoing treatment with eltrombopag due to the potential for falsely elevated results. Performed By: #### L IP, ANEU, GFR, ADIFF, CMP, CBC, ROSELYN ####[address] [place], [place] [address] BUN/Creatinine Ratio 16 ratio Normal 7-27 [facility] [place] Comment on above: Performed By: #### L IP, ANEU, GFR, ADIFF, CMP, CBC, ROSELYN ####[address] [place], [place] [address] Calcium [Mass/Vol] 8.4 mg/dL Normal 8.4-10.2 [facility] ([place]) Comment on above: Performed By: #### L IP, ANEU, GFR, ADIFF, CMP, CBC, ROSELYN ####[address] [place], [place] [address] Chloride [Moles/Vol] 100 mmol/L Normal 98-107 [facility] [place] Comment on above: Performed By: #### L IP, ANEU, GFR, ADIFF, CMP, CBC, ROSELYN ####[address] [place], [place] [address] CO2 [Moles/Vol] 30 mmol/L High 22-29 [facility] ([place]) Comment on above: Performed By: #### L IP, ANEU, GFR, ADIFF, CMP, CBC, ROSELYN ####[address] [place], [place] [address] Creatinine [Mass/Vol] 1.22 mg/dL High 0.55-1.02 [facility] ([place]) Comment on above: Performed By: #### L IP, ANEU, GFR, ADIFF, CMP, CBC, ROSELYN ####[address] [place], [place] [address] Electrolyte Balance 6.0 mEq/L Normal 4.0-15.0 [facility] ([place]) Comment on above: Performed By: #### L IP, ANEU, GFR, ADIFF, CMP, CBC, ROSELYN ####[address] [place], [place] [address] Globulin 2.6 G/dL Normal [facility] ([place]) Comment on above: Performed By: #### L IP, ANEU, GFR, ADIFF, CMP, CBC, ROSELYN ####[address] [place], [place] [address] Glucose [Mass/Vol] 89 mg/dL Normal 70-105 [facility] ([place]) Comment on above: Performed By: #### L IP, ANEU, GFR, ADIFF, CMP, CBC, ROSELYN ####[address] [place], [place] [address] Potassium [Moles/Vol] 4.6 mmol/L Normal 3.5-5.1 [facility] ([place]) Comment on above: Performed By: #### L IP, ANEU, GFR, ADIFF, CMP, CBC, ROSELYN ####[address] [place], [place] [address] Sodium [Moles/Vol] 136 mmol/L Normal 136-145 [facility] ([place]) Comment on above: Performed By: #### L IP, ANEU, GFR, ADIFF, CMP, CBC, ROSELYN ####[address] [place], [place] [address] Total Protein 6.1 G/dL Low 6.4-8.2 [facility] ([place]) Comment on above: Performed By: #### L IP, ANEU, GFR, ADIFF, CMP, CBC, ROSELYN ####[address] [place], [place] [address] Urea nitrogen [Mass/Vol] 19 mg/dL High 7-18 [facility] ([place]) Comment on above: Performed By: #### L IP, ANEU, GFR, ADIFF, CMP, CBC, ROSELYN ####[id number] [place], [place] [address] LABORATORYOrdered By: SYSTEM SYSTEM on 09-04-2022 Albumin BCP dye [Mass/Vol] 3.5 G/dL Invalid Interpretation Code 3.5 - 5.0 G/dL AO ADM SS Albumin/Globulin [Mass ratio] 1.3 {ratio} Invalid Interpretation Code 1.1 - 2.5 ratio AO ADM SS ALP [Catalytic activity/Vol] 57 U/L Invalid Interpretation Code 40 - 135 U/L AO ADM SS ALT With P-5'-P [Catalytic activity/Vol] 23 U/L Invalid Interpretation Code 14 - 59 U/L AO ADM SS Amylase [Catalytic activity/Vol] 51 U/L Invalid Interpretation Code 25 - 115 U/L AO ADM SS AST With P-5'-P [Catalytic activity/Vol] 17 U/L Invalid Interpretation Code 10 - 40 U/L AO ADM SS Bilirubin [Mass/Vol] 0.2 mg/dL Invalid Interpretation Code 0.2 - 1.0 mg/dL AO ADM SS Calcium [Mass/Vol] 8.4 mg/dL Invalid Interpretation Code 8.4 - 10.2 mg/dL AO ADM SS Chloride [Moles/Vol] 100 mmol/L Invalid Interpretation Code 98 - 107 mmol/L AO ADM SS CO2 [Moles/Vol] 30 mmol/L Invalid Interpretation Code 22 - 29 mmol/L AO ADM SS Creatinine [Mass/Vol] 1.22 mg/dL Invalid Interpretation Code 0.55 - 1.02 mg/dL AO ADM SS Electrolyte Balance 6.0 mEq/L Invalid Interpretation Code 4.0 - 15.0 mEq/L AO ADM SS GFR/1.73 sq M.predicted among blacks MDRD (S/P/Bld) [Vol rate/Area] 61 ml/min/1.73sqm Invalid Interpretation Code AO Chemistry S GFR/1.73 sq M.predicted among non-blacks MDRD (S/P/Bld) [Vol rate/Area] 50 ml/min/1.73sqm Invalid Interpretation Code AO Chemistry S Globulin 2.6 G/dL Invalid Interpretation Code AO ADM SS Glucose [Mass/Vol] 89 mg/dL Invalid Interpretation Code 70 - 105 mg/dL AO ADM SS Lipase [Catalytic activity/Vol] 39 U/L Invalid Interpretation Code 16 - 77 U/L AO ADM SS Potassium [Moles/Vol] 4.6 mmol/L Invalid Interpretation Code 3.5 - 5.1 mmol/L AO ADM SS Protein [Mass/Vol] 6.1 G/dL Invalid Interpretation Code 6.4 - 8.2 G/dL AO ADM SS Sodium [Moles/Vol] 136 mmol/L Invalid Interpretation Code 136 - 145 mmol/L AO ADM SS Urea nitrogen [Mass/Vol] 19 mg/dL Invalid Interpretation Code 7 - 18 mg/dL AO ADM SS Urea nitrogen/Creatinine [Mass ratio] 16 ratio Invalid Interpretation Code 7 - 27 ratio AO ADM SS LABORATORYOrdered By: Hali Treivzo on 09-04-2022 Basophil, Absolute 0.0 103/mcL Invalid Interpretation Code 0.0 - 0.2 10^3/mcL AO Workflow SS Basophils/100 WBC (Bld) 0.3 % Invalid Interpretation Code 0.0 - 2.5 % AO Workflow SS Eosinophil, Absolute 0.1 103/mcL Invalid Interpretation Code 0.0 - 0.4 10^3/mcL AO Workflow SS Eosinophils/100 WBC (Bld) 1.1 % Invalid Interpretation Code 0.0 - 7.0 % AO Workflow SS Erythrocyte distribution width (RBC) [Ratio] 12.4 % Invalid Interpretation Code 11.5 - 14.5 % AO Workflow SS Hematocrit (Bld) [Volume fraction] 38.9 % Invalid Interpretation Code 37.0 - 47.0 % AO Workflow SS Hemoglobin (Bld) [Mass/Vol] 13.2 G/dL Invalid Interpretation Code 12.0 - 16.0 G/dL AO Workflow SS Lymphocyte, Absolute 3.1 103/mcL Invalid Interpretation Code 0.8 - 3.9 10^3/mcL AO Workflow SS Lymphocytes/100 WBC (Bld) 36.4 % Invalid Interpretation Code 10.0 - 50.0 % AO Workflow SS MCH (RBC) [Entitic mass] 30.1 pg Invalid Interpretation Code 27.0 - 31.2 pg AO Workflow SS MCHC 34.0 G/dL Invalid Interpretation Code 33.0 - 37.0 G/dL AO Workflow SS MCV (RBC) [Entitic vol] 88.5 fL Invalid Interpretation Code 80.0 - 94.0 fL AO Workflow SS Monocyte, Absolute 0.5 103/mcL Invalid Interpretation Code 0.2 - 1.0 10^3/mcL AO Workflow SS Monocytes/100 WBC (Bld) 6.4 % Invalid Interpretation Code 1.7 - 13.0 % AO Workflow SS Neutrophil, Absolute 4.7 103/mcL Invalid Interpretation Code 2.9 - 6.2 10^3/mcL AO Workflow SS Neutrophils/100 WBC (Bld) 55.8 % Invalid Interpretation Code 37.0 - 80.0 % AO Workflow SS Platelet mean volume (Bld) [Entitic vol] 6.7 fL Invalid Interpretation Code 7.4 - 10.4 fL AO Workflow SS Platelets (Bld) [#/Vol] 328 103/mcL Invalid Interpretation Code 130 - 400 10^3/mcL AO Workflow SS RBC (Bld) [#/Vol] 4.39 106/mcL Invalid Interpretation Code 4.20 - 5.40 10^6/mcL AO Workflow SS WBC (Bld) [#/Vol] 8.4 103/mcL Invalid Interpretation Code 4.6 - 10.8 10^3/mcL AO Workflow SS LIPon 09-04-2022 Lipase Level 39 U/L Normal 16-77 [facility] ([place]) Comment on above: Performed By: #### L IP, ANEU, GFR, ADIFF, CMP, CBC, ROSELYN ####[address] [address] .Auto Diffon 08-15-2022 Basophil, Absolute 0.0 10 3/mcL Normal 0.0-0.2 [facility] [place] Comment on above: Performed By: #### S SAB, SCL70, CBC, ADIFF, SMRP, CK, ANEU #### [address] [address] #### ANISH, RF, CCP #### [address] [address] Basophils/100 WBC (Bld) 0.4 % Normal 0.0-2.5 [facility] ([place]) Comment on above: Performed By: #### S SAB, SCL70, CBC, ADIFF, SMRP, CK, ANEU #### [address] [address] #### ANISH, RF, CCP #### [address] [address] Eosinophil, Absolute 0.1 10 3/mcL Normal 0.0-0.4 [facility] ([place]) Comment on above: Performed By: #### S SAB, SCL70, CBC, ADIFF, SMRP, CK, ANEU #### [place] [address] #### ANISH, RF, CCP #### [address] [address] Eosinophils/100 WBC (Bld) 1.0 % Normal 0.0-7.0 [facility] ([place]) Comment on above: Performed By: #### S SAB, SCL70, CBC, ADIFF, SMRP, CK, ANEU #### [place] [address] #### ANISH, RF, CCP #### [address] [address] Lymphocyte, Absolute 3.7 10 3/mcL Normal 0.8-3.9 [facility] ([place]) Comment on above: Performed By: #### S SAB, SCL70, CBC, ADIFF, SMRP, CK, ANEU #### [address] [address] #### ANISH, RF, CCP #### [address] [address] Lymphocytes/100 WBC (Bld) 37.6 % Normal 10.0-50.0 [facility] ([place]) Comment on above: Performed By: #### S SAB, SCL70, CBC, ADIFF, SMRP, CK, ANEU #### [place] [address] #### ANISH, RF, CCP #### [address] [address] Monocyte, Absolute 0.7 10 3/mcL Normal 0.2-1.0 [facility] ([place]) Comment on above: Performed By: #### S SAB, SCL70, CBC, ADIFF, SMRP, CK, ANEU #### [address] [address] #### ANISH, RF, CCP #### [address] [address] Monocytes/100 WBC (Bld) 7.6 % Normal 1.7-13.0 [facility] ([place]) Comment on above: Performed By: #### S SAB, SCL70, CBC, ADIFF, SMRP, CK, ANEU #### [address] [address] #### ANISH, RF, CCP #### [address] [address] Neutrophils/100 WBC (Bld) 53.4 % Normal 37.0-80.0 [facility] ([place]) Comment on above: Performed By: #### S SAB, SCL70, CBC, ADIFF, SMRP, CK, ANEU #### [place] [address] #### ANISH, RF, CCP #### [address] [address] .GFRon 08-15-2022 GFR 65 ml/min/1.73sqm Normal [facility] ([place]) Comment on above: Result Comment: GFR Population mean for , Non- Americans Ages 20-29 = 116 mL/min/1.73 sq.m. Ages 30-39 = 107 mL/min/1.73 sq.m. Ages 40-49 = 99 mL/min/1.73 sq.m. Ages 50-59 = 93 mL/min/1.73 sq.m. Ages 60-69 = 85 mL/min/1.73 sq.m. Ages 70+ = 75 mL/min/1.73 sq.m. Chronic Kidney Disease: Less than 60 mL/min/1.73 square meters End Stage Renal Disease: Less than 15 mL/min/1.73 square meters Performed By: #### S SAB, SCL70, CBC, ADIFF, SMRP, CK, ANEU #### [place] [id number] #### ANISH, RF, CCP #### [address] [address] GFR Non- 53 ml/min/1.73sqm Normal [facility] ([place]) Comment on above: Result Comment: GFR Population mean for , Non- Americans Ages 20-29 = 116 mL/min/1.73 sq.m. Ages 30-39 = 107 mL/min/1.73 sq.m. Ages 40-49 = 99 mL/min/1.73 sq.m. Ages 50-59 = 93 mL/min/1.73 sq.m. Ages 60-69 = 85 mL/min/1.73 sq.m. Ages 70+ = 75 mL/min/1.73 sq.m. Chronic Kidney Disease: Less than 60 mL/min/1.73 square meters End Stage Renal Disease: Less than 15 mL/min/1.73 square meters Performed By: #### S SAB, SCL70, CBC, ADIFF, SMRP, CK, ANEU #### [place] [address] #### ANISH, RF, CCP #### [place] [id number] .MDWon 08-15-2022 Monocyte Distribution Width 16.09 Normal 0.00-20.00 [facility] ([place]) Comment on above: Result Comment: For ED adult patients suspected of sepsis, MDW<=20.0 does not rule out sepsis or risk of sepsis Performed By: #### S SAB, SCL70, CBC, ADIFF, SMRP, CK, ANEU #### [place] [id number] #### ANISH, RF, CCP #### [address] [address] .NEUABSon 08-15-2022 Neutrophil, Absolute 5.2 10 3/mcL Normal 2.9-6.2 [facility] ([place]) Comment on above: Performed By: #### S SAB, SCL70, CBC, ADIFF, SMRP, CK, ANEU #### [place] [address] #### ANISH, RF, CCP #### [place] [address] .Urinalysis Microscopic (AO) on 08-15-2022 UA Bacteria Trace Abnormal [facility] ([place]) Comment on above: Performed By: #### S SAB, SCL70, CBC, ADIFF, SMRP, CK, ANEU #### [place] [address] #### ANISH, RF, CCP #### [place] [address] UA RBC None Seen Normal None Seen [facility] ([place]) Comment on above: Performed By: #### S SAB, SCL70, CBC, ADIFF, SMRP, CK, ANEU #### [place] [address] #### ANISH, RF, CCP #### [place] [address] UA Squam Epithelial 5-10 Abnormal None Seen [facility] ([place]) Comment on above: Performed By: #### S SAB, SCL70, CBC, ADIFF, SMRP, CK, ANEU #### [place] [address] #### ANISH, RF, CCP #### [place] [address] UA WBC 5-10 Abnormal None Seen [facility] ([place]) Comment on above: Performed By: #### S SAB, SCL70, CBC, ADIFF, SMRP, CK, ANEU #### [place] [address] #### ANISH, RF, CCP #### [place] [address] CBCon 08-15-2022 Erythrocyte distribution width (RBC) [Ratio] 12.7 % Normal 11.5-14.5 [facility] ([place]) Comment on above: Performed By: #### S SAB, SCL70, CBC, ADIFF, SMRP, CK, ANEU #### [place] [address] #### ANISH, RF, CCP #### [place] [address] Hematocrit (Bld) [Volume fraction] 44.2 % Normal 37.0-47.0 [facility] ([place]) Comment on above: Performed By: #### S SAB, SCL70, CBC, ADIFF, SMRP, CK, ANEU #### [address] [address] #### ANISH, RF, CCP #### [place] [address] Hgb 15.3 G/dL Normal 12.0-16.0 [facility] ([place]) Comment on above: Performed By: #### S SAB, SCL70, CBC, ADIFF, SMRP, CK, ANEU #### [place] [address] #### ANISH, RF, CCP #### [place] [address] MCH (RBC) [Entitic mass] 30.5 pg Normal 27.0-31.2 [facility] ([place]) Comment on above: Performed By: #### S SAB, SCL70, CBC, ADIFF, SMRP, CK, ANEU #### [place] [address] #### ANISH, RF, CCP #### [place] [address] MCHC 34.6 G/dL Normal 33.0-37.0 [facility] ([place] Comment on above: Performed By: #### S SAB, SCL70, CBC, ADIFF, SMRP, CK, ANEU #### [place] [address] #### ANISH, RF, CCP #### [place] [address] MCV (RBC) [Entitic vol] 88.2 fL Normal 80.0-94.0 [facility] ([place]) Comment on above: Performed By: #### S SAB, SCL70, CBC, ADIFF, SMRP, CK, ANEU #### [place] [address] #### ANISH, RF, CCP #### [place] [address] Platelet 351 10 3/mcL Normal 130-400 [facility] ([place]) Comment on above: Performed By: #### S SAB, SCL70, CBC, ADIFF, SMRP, CK, ANEU #### [place] [address] #### ANISH, RF, CCP #### [place] [address] Platelet mean volume (Bld) [Entitic vol] 6.7 fL Low 7.4-10.4 [facility] ([place] Comment on above: Performed By: #### S SAB, SCL70, CBC, ADIFF, SMRP, CK, ANEU #### [place] [address] #### ANISH, RF, CCP #### [place] [address] RBC 5.01 10 6/mcL Normal 4.20-5.40 [facility] ([place] Comment on above: Performed By: #### S SAB, SCL70, CBC, ADIFF, SMRP, CK, ANEU #### [place] [address] #### ANISH, RF, CCP #### [place] [address] WBC 9.8 10 3/mcL Normal 4.6-10.8 [facility] ([place] Comment on above: Performed By: #### S SAB, SCL70, CBC, ADIFF, SMRP, CK, ANEU #### [place] [address] #### ANISH, RF, CCP #### [place] [address] CMPon 08-15-2022 Albumin Level 4.5 G/dL Normal 3.5-5.0 [facility] ([place] Comment on above: Performed By: #### S SAB, SCL70, CBC, ADIFF, SMRP, CK, ANEU #### [address] [address] #### ANISH, RF, CCP #### [address] [address] Albumin/Globulin [Mass ratio] 1.4 {ratio} Normal 1.1-2.5 [facility] ([place] Comment on above: Performed By: #### S SAB, SCL70, CBC, ADIFF, SMRP, CK, ANEU #### [place] [address] #### ANISH, RF, CCP #### [address] [address] ALP [Catalytic activity/Vol] 67 U/L Normal 40-135 [facility] ([place] Comment on above: Performed By: #### S SAB, SCL70, CBC, ADIFF, SMRP, CK, ANEU #### [place] [address] #### ANISH, RF, CCP #### [address] [address] ALT [Catalytic activity/Vol] 24 U/L Normal 14-59 [facility] ([place] Comment on above: Performed By: #### S SAB, SCL70, CBC, ADIFF, SMRP, CK, ANEU #### [address] [address] #### ANISH, RF, CCP #### [address] [address] AST [Catalytic activity/Vol] 24 U/L Normal 10-40 [facility] ([place]) Comment on above: Performed By: #### S SAB, SCL70, CBC, ADIFF, SMRP, CK, ANEU #### [place] [address] #### ANISH, RF, CCP #### [address] [address] Bili Total 0.4 mg/dL Normal 0.2-1.0 [facility] ([place]) Comment on above: Result Comment: Use of this assay is not recommended for patients undergoing treatment with eltrombopag due to the potential for falsely elevated results. Performed By: #### S SAB, SCL70, CBC, ADIFF, SMRP, CK, ANEU #### [address] [address] #### ANISH, RF, CCP #### [address] [address] BUN/Creatinine Ratio 14 ratio Normal 7-27 [facility] [place] Comment on above: Performed By: #### S SAB, SCL70, CBC, ADIFF, SMRP, CK, ANEU #### [place] [address] #### ANISH, RF, CCP #### [address] [address] Calcium [Mass/Vol] 9.3 mg/dL Normal 8.4-10.2 [facility] ([place]) Comment on above: Performed By: #### S SAB, SCL70, CBC, ADIFF, SMRP, CK, ANEU #### [place] [address] #### ANISH, RF, CCP #### [address] [address] Chloride [Moles/Vol] 98 mmol/L Normal 98-107 [facility] [place] Comment on above: Performed By: #### S SAB, SCL70, CBC, ADIFF, SMRP, CK, ANEU #### [place] [address] #### ANISH, RF, CCP #### [address] [address] CO2 [Moles/Vol] 28 mmol/L Normal 22-29 [facility] ([place] Comment on above: Performed By: #### S SAB, SCL70, CBC, ADIFF, SMRP, CK, ANEU #### [place] [address] #### ANISH, RF, CCP #### [address] [address] Creatinine [Mass/Vol] 1.16 mg/dL High 0.55-1.02 [facility] ([place]) Comment on above: Performed By: #### S SAB, SCL70, CBC, ADIFF, SMRP, CK, ANEU #### [place] [address] #### ANISH, RF, CCP #### [place] [address] Electrolyte Balance 15.0 mEq/L Normal 4.0-15.0 [facility] ([place]) Comment on above: Performed By: #### S SAB, SCL70, CBC, ADIFF, SMRP, CK, ANEU #### [place] [address] #### ANISH, RF, CCP #### [place] [address] Globulin 3.3 G/dL Normal [facility] ([place]) Comment on above: Performed By: #### S SAB, SCL70, CBC, ADIFF, SMRP, CK, ANEU #### [place] [address] #### ANISH, RF, CCP #### [place] [address] Glucose [Mass/Vol] 93 mg/dL Normal 70-105 [facility] ([place]) Comment on above: Performed By: #### S SAB, SCL70, CBC, ADIFF, SMRP, CK, ANEU #### [place] [address] #### ANISH, RF, CCP #### [place] [address] Potassium [Moles/Vol] 3.4 mmol/L Low 3.5-5.1 [facility] ([place]) Comment on above: Performed By: #### S SAB, SCL70, CBC, ADIFF, SMRP, CK, ANEU #### [place] [address] #### ANISH, RF, CCP #### [address] [address] Sodium [Moles/Vol] 141 mmol/L Normal 136-145 [facility] ([place]) Comment on above: Performed By: #### S SAB, SCL70, CBC, ADIFF, SMRP, CK, ANEU #### [address] [address] #### ANISH, RF, CCP #### [place] [address] Total Protein 7.8 G/dL Normal 6.4-8.2 [facility] ([place]) Comment on above: Performed By: #### S SAB, SCL70, CBC, ADIFF, SMRP, CK, ANEU #### [address] [address] #### ANISH, RF, CCP #### [address] [address] Urea nitrogen [Mass/Vol] 16 mg/dL Normal 7-18 [facility] ([place]) Comment on above: Performed By: #### S SAB, SCL70, CBC, ADIFF, SMRP, CK, ANEU #### [address] [address] #### ANISH, RF, CCP #### [place] [address] CT ABD/PELVIS W/ IV CONTRAST ONLYon 08-15-2022 CT ABD/PELVIS W/ IV CONTRAST ONLY ORIGINAL EXAMINATION: CT OF THE ABDOMEN AND PELVIS WITH CONTRAST 08/15/2022 6:10 pm TECHNIQUE: CT of the abdomen and pelvis was performed with the administration of intravenous contrast. Multiplanar reformatted images are provided for review. Automated exposure control, iterative reconstruction, and/or weight based adjustment of the mA/kV was utilized to reduce the radiation dose to as low as reasonably achievable. COMPARISON: CT abdomen/pelvis 07/28/2020 HISTORY: ORDERING SYSTEM PROVIDED HISTORY: Left upper quadrant pain x3 0.5 weeks Reason for Exam: pain FINDINGS: Lower Chest: No pleural or pericardial effusion. Organs: No hepatic mass or intrahepatic ductal dilation. Surgically absent gallbladder. Nondilated common bile duct. Unremarkable spleen, adrenal glands, and pancreas. Symmetrically enhancing kidneys. No suspicious renal mass, calculus, or hydronephrosis. Right extrarenal pelvis. GI/Bowel: The small bowel is normal in course and caliber. No colonic dilation or wall thickening. Normal appendix. Pelvis: Thickened bladder wall is likely due to under distension. Surgically absent uterus. No adnexal mass. Peritoneum/Retroperitoneum: No free air or fluid. No adenopathy. Unremarkable abdominal aorta. Bones/Soft Tissues: Diastasis of the rectus abdominus muscles. Small fat containing umbilical hernia. No acute osseous abnormality. IMPRESSION: No acute process within the abdomen or pelvis. I have personally reviewed the images of this examination and agree with the resident's findings and interpretation. Interpreted by: Johny Vinson Preliminary Report By: Sofia Alexander Electronically signed By Johny Vinson Dictated Date: 08/15/2022 6:11:12 PM Prelim Date: 08/15/2022 6:16:25 PM Sign Date: 08/15/2022 6:19:13 PM Ordering Provider: ISCAC RILEY Normal [facility] ([place]) LIPon 08-15-2022 Lipase Level 32 U/L Normal 16-77 [facility] ([place]) Comment on above: Performed By: #### S SAB, SCL70, CBC, ADIFF, SMRP, CK, ANEU #### [place] [address] #### ANISH, RF, CCP #### [place] [address] PREGUon 08-15-2022 HCG ( test) Ql (U) Negative Normal [facility] ([place]) Comment on above: Performed By: #### S SAB, SCL70, CBC, ADIFF, SMRP, CK, ANEU #### [address] [address] #### ANISH, RF, CCP #### [address] [address] test (u) int Not detected Invalid Interpretation Code [facility] ([place]) Comment on above: Performed By: #### S SAB, SCL70, CBC, ADIFF, SMRP, CK, ANEU #### [place] [address] #### ANISH, RF, CCP #### [address] [address] UAon 08-15-2022 Color (U) Yellow Normal [facility] ([place]) Comment on above: Performed By: #### S SAB, SCL70, CBC, ADIFF, SMRP, CK, ANEU #### [place] [address] #### ANISH, RF, CCP #### [place] [address] Glucose (U) [Mass/Vol] Negative Normal Negative [facility] ([place]) Comment on above: Performed By: #### S SAB, SCL70, CBC, ADIFF, SMRP, CK, ANEU #### [place] [address] #### ANISH, RF, CCP #### [place] [address] Ketones Ql (U) Negative Normal Negative [facility] ([place]) Comment on above: Performed By: #### S SAB, SCL70, CBC, ADIFF, SMRP, CK, ANEU #### [place] [address] #### ANISH, RF, CCP #### [place] [address] UA Appear Slightly Cloudy Abnormal Clear [facility] ([place]) Comment on above: Performed By: #### S SAB, SCL70, CBC, ADIFF, SMRP, CK, ANEU #### [place] [address] #### ANISH, RF, CCP #### [place] [id number] UA Blood Negative Normal Negative [facility] ([place]) Comment on above: Performed By: #### S SAB, SCL70, CBC, ADIFF, SMRP, CK, ANEU #### [place] [address] #### ANISH, RF, CCP #### [place] [address] UA Leuk Est Trace Abnormal Negative [facility] ([place]) Comment on above: Performed By: #### S SAB, SCL70, CBC, ADIFF, SMRP, CK, ANEU #### [address] [address] #### ANISH, RF, CCP #### [place] [address] UA Nitrite Negative Normal Negative [facility] ([place] Comment on above: Performed By: #### S SAB, SCL70, CBC, ADIFF, SMRP, CK, ANEU #### [place] [address] #### ANISH, RF, CCP #### [place] [address] UA pH 6.0 Normal 5.0 - 8.0 [facility] ([place]) Comment on above: Performed By: #### S SAB, SCL70, CBC, ADIFF, SMRP, CK, ANEU #### [place] [address] #### ANISH, RF, CCP #### [place] [address] UA Protein Negative Normal Negative [facility] ([place]) Comment on above: Performed By: #### S SAB, SCL70, CBC, ADIFF, SMRP, CK, ANEU #### [place] [address] #### ANISH, RF, CCP #### [place] [address] UA Spec Grav 1.025 Normal 1.015-1.02 5 [facility] ([place]) Comment on above: Performed By: #### S SAB, SCL70, CBC, ADIFF, SMRP, CK, ANEU #### [place] [address] #### ANISH, RF, CCP #### [place] [address] UA Specimen Type Clean Catch Normal [facility] ([place]) Comment on above: Performed By: #### S SAB, SCL70, CBC, ADIFF, SMRP, CK, ANEU #### [address] [address] #### ANISH, RF, CCP #### [address] [address] UA Urobilinogen 0.2 E.U./dL Normal 0.2-1.0 [facility] ([place]) Comment on above: Performed By: #### S SAB, SCL70, CBC, ADIFF, SMRP, CK, ANEU #### [address] [address] #### ANISH, RF, CCP #### [place] [address] Urobilinogen (U) [Mass/Vol] Negative Normal Negative [facility] ([place]) Comment on above: Performed By: #### S SAB, SCL70, CBC, ADIFF, SMRP, CK, ANEU #### [place] [address] #### ANISH, RF, CCP #### [place] [address] LABORATORYOrdered By: Amanda Almanzar on 02-04-2022 Calcium [Mass/Vol] 8.5 mg/dL Invalid Interpretation Code 8.4 - 10.2 mg/dL AO ADM SS Chloride [Moles/Vol] 104 mmol/L Invalid Interpretation Code 98 - 107 mmol/L AO ADM SS CO2 [Moles/Vol] 31 mmol/L Invalid Interpretation Code 22 - 29 mmol/L AO ADM SS Creatinine [Mass/Vol] 1.07 mg/dL Invalid Interpretation Code 0.55 - 1.02 mg/dL AO ADM SS Electrolyte Balance 7.0 mEq/L Invalid Interpretation Code 4.0 - 15.0 mEq/L AO ADM SS Glucose [Mass/Vol] 104 mg/dL Invalid Interpretation Code 70 - 105 mg/dL AO ADM SS Potassium [Moles/Vol] 4.4 mmol/L Invalid Interpretation Code 3.5 - 5.1 mmol/L AO ADM SS Sodium [Moles/Vol] 142 mmol/L Invalid Interpretation Code 136 - 145 mmol/L AO ADM SS Urea nitrogen [Mass/Vol] 13 mg/dL Invalid Interpretation Code 7 - 18 mg/dL AO ADM SS Urea nitrogen/Creatinine [Mass ratio] 12 ratio Invalid Interpretation Code 7 - 27 ratio AO ADM SS LABORATORYOrdered By: SYSTEM SYSTEM on 02-04-2022 GFR 72 ml/min/1.73sqm Invalid Interpretation Code AO Chemistry S GFR Non- 59 ml/min/1.73sqm Invalid Interpretation Code AO Chemistry S LABORATORYOrdered By: Chelsie Cuadra on 07-23-2021 Albumin BCP dye [Mass/Vol] 4.3 G/dL Invalid Interpretation Code 3.5 - 5.0 G/dL AO ADM SS Albumin/Globulin [Mass ratio] 1.3 {ratio} Invalid Interpretation Code 1.1 - 2.5 ratio AO ADM SS ALP [Catalytic activity/Vol] 83 U/L Invalid Interpretation Code 40 - 135 U/L AO ADM SS ALT With P-5'-P [Catalytic activity/Vol] 65 U/L Invalid Interpretation Code 14 - 59 U/L AO ADM SS AST With P-5'-P [Catalytic activity/Vol] 21 U/L Invalid Interpretation Code 10 - 40 U/L AO ADM SS Basophil, Absolute 0.00 103/mcL Invalid Interpretation Code 0.00 - 0.19 10^3/mcL AO Auto Heme SS Basophils/100 WBC (Bld) 0.3 % Invalid Interpretation Code 0.0 - 2.5 % AO Auto Heme SS Bilirubin [Mass/Vol] 0.4 mg/dL Invalid Interpretation Code 0.2 - 1.0 mg/dL AO ADM SS Calcium [Mass/Vol] 9.1 mg/dL Invalid Interpretation Code 8.4 - 10.2 mg/dL AO ADM SS Chloride [Moles/Vol] 104 mmol/L Invalid Interpretation Code 98 - 107 mmol/L AO ADM SS Cholesterol [Mass/Vol] 179 mg/dL Invalid Interpretation Code 0 - 200 mg/dL AO ADM SS Cholesterol in HDL [Mass/Vol] 36 mg/dL Invalid Interpretation Code 40 - 60 mg/dL AO ADM SS Cholesterol in LDL [Mass/Vol] 110 mg/dL Invalid Interpretation Code 0 - 130 mg/dL AO ADM SS CO2 [Moles/Vol] 28 mmol/L Invalid Interpretation Code 22 - 29 mmol/L AO ADM SS Creatinine [Mass/Vol] 1.00 mg/dL Invalid Interpretation Code 0.55 - 1.02 mg/dL AO ADM SS Electrolyte Balance 9.0 mEq/L Invalid Interpretation Code 4.0 - 15.0 mEq/L AO ADM SS Eosinophil, Absolute 0.10 103/mcL Invalid Interpretation Code 0.00 - 0.40 10^3/mcL AO Auto Heme SS Eosinophils/100 WBC (Bld) 0.8 % Invalid Interpretation Code 0.0 - 7.0 % AO Auto Heme SS Erythrocyte distribution width (RBC) [Ratio] 12.5 % Invalid Interpretation Code 11.5 - 14.5 % AO Auto Heme SS Globulin 3.2 G/dL Invalid Interpretation Code AO ADM SS Glucose [Mass/Vol] 91 mg/dL Invalid Interpretation Code 70 - 105 mg/dL AO ADM SS Hematocrit (Bld) [Volume fraction] 43.7 % Invalid Interpretation Code 37.0 - 47.0 % AO Auto Heme SS Hemoglobin (Bld) [Mass/Vol] 14.9 G/dL Invalid Interpretation Code 12.0 - 16.0 G/dL AO Auto Heme SS Lymphocyte, Absolute 2.30 103/mcL Invalid Interpretation Code 0.77 - 3.85 10^3/mcL AO Auto Heme SS Lymphocytes/100 WBC (Bld) 31.7 % Invalid Interpretation Code 10.0 - 50.0 % AO Auto Heme SS MCH (RBC) [Entitic mass] 30.3 pg Invalid Interpretation Code 27.0 - 31.2 pg AO Auto Heme SS MCHC (RBC) [Mass/Vol] 34.1 G/dL Invalid Interpretation Code 33.0 - 37.0 G/dL AO Auto Heme SS MCV (RBC) [Entitic vol] 89.0 fL Invalid Interpretation Code 80.0 - 94.0 fL AO Auto Heme SS Monocyte, Absolute 0.40 103/mcL Invalid Interpretation Code 0.15 - 1.00 10^3/mcL AO Auto Heme SS Monocytes/100 WBC (Bld) 5.8 % Invalid Interpretation Code 1.7 - 13.0 % AO Auto Heme SS Neutrophil, Absolute 4.50 103/mcL Invalid Interpretation Code 2.85 - 6.16 10^3/mcL AO Auto Heme SS Neutrophils/100 WBC (Bld) 61.4 % Invalid Interpretation Code 37.0 - 80.0 % AO Auto Heme SS Platelet mean volume (Bld) [Entitic vol] 7.7 fL Invalid Interpretation Code 7.4 - 10.4 fL AO Auto Heme SS Platelets (Bld) [#/Vol] 335 103/mcL Invalid Interpretation Code 130 - 400 10^3/mcL AO Auto Heme SS Potassium [Moles/Vol] 4.8 mmol/L Invalid Interpretation Code 3.5 - 5.1 mmol/L AO ADM SS Protein [Mass/Vol] 7.5 G/dL Invalid Interpretation Code 6.4 - 8.2 G/dL AO ADM SS RBC (Bld) [#/Vol] 4.91 106/mcL Invalid Interpretation Code 4.20 - 5.40 10^6/mcL AO Auto Heme SS Sodium [Moles/Vol] 141 mmol/L Invalid Interpretation Code 136 - 145 mmol/L AO ADM SS Triglyceride [Mass/Vol] 166 mg/dL Invalid Interpretation Code 0 - 150 mg/dL AO ADM SS Urea nitrogen [Mass/Vol] 12 mg/dL Invalid Interpretation Code 7 - 18 mg/dL AO ADM SS Urea nitrogen/Creatinine [Mass ratio] 12 ratio Invalid Interpretation Code 7 - 27 ratio AO ADM SS WBC (Bld) [#/Vol] 7.30 103/mcL Invalid Interpretation Code 4.60 - 10.80 10^3/mcL AO Auto Heme SS LABORATORYOrdered By: SYSTEM SYSTEM on 07-23-2021 GFR 77 ml/min/1.73sqm Invalid Interpretation Code AO Chemistry S GFR Non- 64 ml/min/1.73sqm Invalid Interpretation Code AO Chemistry S Vital Signs Date Time Vital Sign Value Performing Clinician Facility 06-21-2024 08:36-0500 Body height 160.02 cm Haily RUVALCABAC Work Phone: [facility] 06-21-2024 08:36-0500 Body mass index (BMI) [Ratio] 32.5 kg/m2 Haily RUVALCABAC Work Phone: [facility] 06-21-2024 08:36-0500 Body weight 83.46 kg Haily RUVALCABAC Work Phone: [facility] 06-21-2024 08:36-0500 Diastolic blood pressure 88 mm[Hg] Haily RUVALCABAC Work Phone: [facility] 06-21-2024 08:36-0500 Heart rate 91 /min Haily RUVALCABAC Work Phone: [facility] 06-21-2024 08:36-0500 Respiratory rate 18 /min Haily Brown [employer]ODUCT DEVELOPMENT SPECIALIST-C Work Phone: [facility] 06-21-2024 08:36-0500 SaO2% (BldA) [Mass fraction] 97 % Haily Brown PRODUCT DEVELOPMENT SPECIALIST-C Work Phone: [facility] 06-21-2024 08:36-0500 Systolic blood pressure 126 mm[Hg] Haily Brown PRODUCT DEVELOPMENT SPECIALIST-C Work Phone: [facility] 06-07-2024 12:00-0500 Body temperature 97.5 [degF] Haily Brown PRODUCT DEVELOPMENT SPECIALIST-C Work Phone: [facility] 06-07-2024 12:00-0500 Diastolic blood pressure 80 mm[Hg] Haily Brown PRODUCT DEVELOPMENT SPECIALIST-C Work Phone: [facility] 06-07-2024 12:00-0500 Heart rate 69 /min Haily Brown PRODUCT DEVELOPMENT SPECIALIST-C Work Phone: [facility] 06-07-2024 12:00-0500 Respiratory rate 16 /min Haily Brown PRODUCT DEVELOPMENT SPECIALIST-C Work Phone: [facility] 06-07-2024 12:00-0500 SaO2% (BldA) [Mass fraction] 100 % Haily Brown PRODUCT DEVELOPMENT SPECIALIST-C Work Phone: [facility] 06-07-2024 12:00-0500 Systolic blood pressure 116 mm[Hg] Haily Brown PRODUCT DEVELOPMENT SPECIALIST-C Work Phone: [facility] 06-07-2024 09:38-0500 Body mass index (BMI) [Ratio] 31.6 kg/m2 Haily Brown PRODUCT DEVELOPMENT SPECIALIST-C Work Phone: [facility] 06-07-2024 09:38-0500 Body weight 81 kg Haily Brown PRODUCT DEVELOPMENT SPECIALIST-C Work Phone: [facility] 06-03-2024 14:52-0500 Body mass index (BMI) [Ratio] 33.1 kg/m2 Haily Brown PRODUCT DEVELOPMENT SPECIALIST-C Work Phone: [facility] 06-03-2024 14:52-0500 Body weight 84.87 kg Haily Boydarlet PRODUCT DEVELOPMENT SPECIALIST-C Work Phone: [facility] 06-03-2024 14:52-0500 Diastolic blood pressure 86 mm[Hg] Haily Boydarlet PRODUCT DEVELOPMENT SPECIALIST-C Work Phone: [facility] 06-03-2024 14:52-0500 Heart rate 87 /min Haily Stephanie PRODUCT DEVELOPMENT SPECIALIST-C Work Phone: [facility] 06-03-2024 14:52-0500 Respiratory rate 16 /min Haily Stephanie PRODUCT DEVELOPMENT SPECIALIST-C Work Phone: [facility] 06-03-2024 14:52-0500 SaO2% (BldA) [Mass fraction] 96 % Haily Boydarlet PRODUCT DEVELOPMENT SPECIALIST-C Work Phone: [facility] 06-03-2024 14:52-0500 Systolic blood pressure 120 mm[Hg] Haily Boydarlet PRODUCT DEVELOPMENT SPECIALIST-C Work Phone: [facility] 03-03-2023 12:42-0500 Body height 160 cm Ro Wooten DO Work Phone: [facility] 03-03-2023 12:42-0500 Body temperature 98.4 [degF] Ro Wooten DO Work Phone: [facility] 03-03-2023 12:42-0500 Body weight 79.6 kg Ro Wooten DO Work Phone: [facility] 03-03-2023 12:42-0500 Diastolic blood pressure 84 mm[Hg] Ro Wooten DO Work Phone: [facility] 03-03-2023 12:42-0500 Heart rate 74 /min Ro Wooten DO Work Phone: [facility] 03-03-2023 12:42-0500 Systolic blood pressure 132 mm[Hg] Ro Wooten DO Work Phone: [facility] 03-25-2022 10:01-0500 Diastolic Blood Pressure Non-Invasive [address] JOANNE MURDOCK MD [facility] 03-25-2022 10:01-0500 Heart rate 68 /min DR JOANNE MURDOCK MD [facility] 03-25-2022 10:01-0500 Respiratory rate 17 /min DR JOANNE MURDOCK MD [facility] 03-25-2022 10:01-0500 Systolic Blood Pressure Non-Invasive [address] JOANNE MURDOCK MD [facility] 03-25-2022 09:48-0500 Diastolic Blood Pressure Non-Invasive [address] JOANNE MURDOCK MD [facility] 03-25-2022 09:48-0500 Heart rate 72 /min DR JOANNE MURDOCK MD [facility] 03-25-2022 09:48-0500 Respiratory rate 22 /min DR JOANNE MURDOCK MD [facility] 03-25-2022 09:48-0500 Systolic Blood Pressure Non-Invasive [address] JOANNE MURDOCK MD [facility] 03-25-2022 09:42-0500 Diastolic Blood Pressure Non-Invasive [address] JOANNE MURDOCK MD [facility] 03-25-2022 09:42-0500 Heart rate 83 /min DR JOANNE MURDOCK MD [facility] 03-25-2022 09:42-0500 Respiratory rate 19 /min DR JOANNE MURDOCK MD [facility] 03-25-2022 09:42-0500 Systolic Blood Pressure Non-Invasive [address] JOANNE MURDOCK MD [facility] 03-25-2022 09:25-0500 Body temperature 97.7 [degF] DR JOANNE MURDOCK MD [facility] 03-25-2022 09:20-0500 Respiratory Rate - Anes 16 br/min DR JOANNE MURDOCK MD [facility] 03-25-2022 09:15-0500 Respiratory Rate - Anes 10 br/min DR JOANNE MURDOCK MD [facility] 03-25-2022 09:10-0500 Respiratory Rate - Anes 11 br/min DR JOANNE MURDOCK MD [facility] 03-25-2022 07:58-0500 Body height [address] JOANNE MURDOCK MD [facility] 03-25-2022 07:58-0500 Body temperature 97.34 [degF] DR JOANNE MURDOCK MD [facility] 03-25-2022 07:58-0500 Body weight 84.[address] JOANNE MURDOCK MD [facility] 03-25-2022 07:58-0500 Heart rate 84 /min DR JOANNE MURDOCK MD [facility] Encounters Encounter Date Encounter Type Care Provider Facility Start: 09-27-2024 End: 09-27-2024 ambulatory HAILY BROWN SKIVER SOCK LININGS-CORRECTIONAL CASE MANAGER Facility:[facility] Start: 09-27-2024 End: 09-27-2024 Patient encounter procedure HAILY BROWN APRN-CORRECTIONAL CASE MANAGER [facility] Start: 08-16-2024 End: 08-16-2024 ambulatory Carolyn Sanches [place] [place]: 08-09-2024 End: 08-09-2024 ambulatory Haily Brown PRODUCT DEVELOPMENT SPECIALIST-C Work Phone: [facility] Work Phone: Start: 08-09-2024 End: 08-09-2024 Patient encounter procedure Carolyn Sanches NP-C -Nuclear Medicine, [facility] Work Phone: Start: 08-09-2024 End: 08-09-2024 ambulatory Carolyn Sanches Facility:[facility] Start: 06-22-2024 End: 06-22-2024 Patient encounter procedure Carolyn Sanches PRODUCT DEVELOPMENT SPECIALIST-C -Laboratory, Specimen Work Phone: Start: 06-22-2024 End: 06-22-2024 ambulatory Carolyn Sanches Facility:[facility] Start: 06-21-2024 End: 06-21-2024 Patient encounter procedure Carolyn RUVALCABAC -[facility] Work Phone: Start: 06-21-2024 End: 06-21-2024 ambulatory Haily Brown NP Facility:[facility] Start: 06-07-2024 Non-patient / Non-visit Thony Cochran nd DO -[facility] Start: 06-07-2024 End: 06-07-2024 Admission to same day surgery center Thony Stein DO -Endoscopy Work Phone: Start: 06-07-2024 End: 06-07-2024 ambulatory Haily Brown NP Facility:[facility] Start: 06-03-2024 End: 06-03-2024 Patient encounter procedure Carolyn Sanches PRODUCT DEVELOPMENT SPECIALIST-C -[facility] Work Phone: Start: 06-03-2024 End: 06-03-2024 ambulatory Haily Brown PRODUCT DEVELOPMENT SPECIALIST Facility:[facility] Start: 04-06-2024 End: 04-06-2024 ambulatory Haily Borwn PRODUCT DEVELOPMENT SPECIALIST Facility:[facility] Start: 03-29-2024 End: 03-29-2024 ambulatory Carolyn Sanches Facility:[facility] Start: 03-16-2024 End: 03-16-2024 ambulatory HAILY BROWN SKIVER S[employer] LININGS-CORRECTIONAL CASE MANAGER Facility:[facility] Start: 03-16-2024 End: 03-16-2024 Patient encounter procedure HAILY BROWN SKIVER [employer] LININGS-CORRECTIONAL CASE MANAGER [facility] Start: 03-15-2024 ambulatory HAILY BROWN SKIVER [employer]INGS-CORRECTIONAL CASE MANAGER Facility:[facility] Start: 03-15-2024 End: 03-15-2024 ambulatory HAILY BROWN SKIVER S[employer] LININGS-CORRECTIONAL CASE MANAGER Facility:[facility] Start: 03-15-2024 End: 03-15-2024 Patient encounter procedure KYLE BARBOUR MD [facility] Start: 03-08-2024 End: 03-08-2024 ambulatory HAILY BROWN SKIVER SOCK LININGS-CORRECTIONAL CASE MANAGER Facility:[facility] Start: 03-08-2024 End: 03-08-2024 Patient encounter procedure HAILY BROWN SKIVER [employer] LININGS-CORRECTIONAL CASE MANAGER [facility] Start: 01-06-2024 ambulatory Haily Brown NP Facil ity:[facility] Start: 11-17-2023 End: 11-17-2023 ambulatory Haily Brown NP Facility:[facility] Start: 06-23-2023 End: 06-24-2023 ambulatory FLOWER FONTANA MD Facility:[facility] Start: 03-05-2023 End: 03-06-2023 ambulatory ADRIAN BLACKMAN Facility:[facility] Start: 03-03-2023 End: 03-04-2023 ambulatory Adrian Blackman MD Work Phone: [facility] Start: 03-03-2023 End: 03-03-2023 Patient encounter procedure Ro Wooten DO Work Phone: [facility] Comment on above: Stage 3a chronic kid schuyler disease (HCC) (Primary Dx); Essential hypertension Start: 01-24-2023 End: 01-25-2023 ambulatory HAILY BROWN SKIVER S[employer] LININGS-CORRECTIONAL CASE MANAGER Facility:[facility] Start: 12-23-2022 End: 12-24-2022 ambulatory HAILY LORSON SKIVER SOCK LININGS-CORRECTIONAL CASE MANAGER Facility:[facility] Start: 12-23-2022 End: 12-23-2022 Patient encounter procedure HAILY BROWN SKIVER [employer] LININGS-CORRECTIONAL CASE MANAGER [facility] Start: 12-16-2022 End: 12-17-2022 ambulatory HAILY BROWN SKIVER [employer] LININGS-CORRECTIONAL CASE MANAGER Facility:[facility] Start: 12-16-2022 End: 12-16-2022 Patient encounter procedure HAILY BROWN SKIVER [employer] LININGS-CORRECTIONAL CASE MANAGER [facility] Start: 11-27-2022 End: 11-28-2022 ambulatory HAILY BROWN SKIVER S[employer] LININGS-CORRECTIONAL CASE MANAGER Facility:[facility] Start: 11-12-2022 End: 11-13-2022 ambulatory HAILY BROWN SKIVER S[employer] LININGS-CORRECTIONAL CASE MANAGER Facility:[facility] Start: 11-12-2022 End: 11-12-2022 Patient encounter procedure HAILY BROWN SKIVER [employer] LININGS-CORRECTIONAL CASE MANAGER [facility] Start: 09-04-2022 End: 09-05-[address] VIET HERNANDEZ MD Facility:[facility] Start: 09-04-2022 End: 09-04-[address] VIET HERNANDEZ MD [facility] Start: 08-15-2022 End: 08-15-2022 Emergency department patient visit ISACC RILEY MD Facility:[facility] Start: 03-25-2022 End: 03-25-[address] JOANNE MURDOCK MD [facility] Start: 02-04-2022 End: 02-04-2022 Patient encounter procedure HAILY BROWN SKIVER [employer]INGS-CORRECTIONAL CASE MANAGER [facility] Start: 01-28-2022 End: 05-24-2022 Physical therapy management HAILY LORARLET SKIVER SOCK LININGS-CORRECTIONAL CASE MANAGER [facility] Start: 07-23-2021 End: 07-23-2021 Patient encounter procedure HOLLIE RUSH MD [facility] Start: 08-11-2018 Patient encounter procedure Facility:[facility] Procedures Date Procedure Procedure Detail Performing Clinician Start: 08-09-2024 Radionuclide gastric emptying study Haily Brown PRODUCT DEVELOPMENT SPECIALIST-C Work Phone: Start: 06-22-2024 Clostridium difficile detection Haily Brown PRODUCT DEVELOPMENT SPECIALIST-C Work Phone: Start: 06-22-2024 Nucleic acid assay Haily Brown PRODUCT DEVELOPMENT SPECIALIST-C Work Phone: Start: 03-03-2023 Urnls dip stick/tablet rgnt auto w/o microscopy Bulk Order Provider Start: 03-25-[address] JOANNE BURGOS MD Start: 07-17-2020 Vaginal hysterectomy HOLLIE RUSH MD Start: 04-28-2013 Dilation and curettage HOLLIE RUSH MD Comment on above: Dr. Barbour Start: 04-28-2009 Cholecystectomy HOLLIE RUSH MD Start: 04-28-1995 Tonsillectomy HOLLIE RUSH MD section HOLLIE MARKS MD Comment on above: 2009, 2013 x2 Esophagogastroduodenoscopy A PATTI RUSH MD Plan of Treatment Date Care Activity Detail Author Start: 06-07-2024 Colonoscopy w/biopsy single/multiple COLONOSCOPY AND BIOPSY [facility] Start: 06-07-2024 Egd transoral biopsy single/multiple EGD BIOPSY SINGLE/MULTIPLE [facility] Start: 06-07-2024 [facility] Start: 03-05-2024 Serum Creatinine Serum Creatinine [facility] Start: 03-03-2023 End: 06-02-2023 Comprehensive metabolic 2000 panel - Serum or Plasma COMP METABOLIC PANEL Lab Routine Stage 3a chronic kidney disease (HCC) Expected: 03/03/2023, Expires: 06/02/2023 [facility] Work Phone: Comment on above: Expected: 03/03/2023 , Expires: 06/02/2023 Start: 12-27-2022 Covid-19 Vaccine () Covid-19 Vaccine () [facility] Start: 12-27-2022 Influenza vaccination Influenza Vacc ine (#1) [facility] Start: 2018 HPV Testing HPV Testing [facility] Start: 2009 Pap Testing Pap Testing [facility] Start: 2006 Annual PCP Team Knowledge Manager kristan Disease Visit Annual PCP Team Chronic Disease Visit [facility] Start: 2006 Hemoglobin/Hematocrit Hemoglobin/Hem atocrit [facility] Start: 2006 Hepatitis C Screening Hepatitis C Sc reening [facility] Start: 2006 HIV Screening HIV Screening [facility] Start: 2006 Serum Creatinine Serum Creatinine [facility] Start: 1999 Urine microalbumin profile DTaP,Tdap,Td Vaccine (6 - Tdap) [facility] Patient referral [facility] Work Phone: [facility] Immunizations Immunization Date Immunization Notes Care Provider Fa cility 04-03-2021 SARS-CoV-2 (COVID-19 ) mRNA-1273 vaccine HOLLIE RUSH MD [facility] 03-06-2021 SARS-CoV-2 (COVID-19 ) mRNA-1273 vaccine HOLLIE RUSH MD [facility] Comment on above: Result Comment: 2020: TPVAL 04-27-2014 influenza virus vaccine, unspecified formulation HOLLIE RUSH MD [facility] 04-27-2014 influenza, injectabl e, quadrivalent, preservative free Haily Brown PRODUCT DEVELOPMENT SPECIALIST-C Work Phone: [facility] 12-11-2011 hepatitis B pediatri c vaccine HOLLIE RUSH MD [facility] 08-02-2011 hepatitis B pediatri c vaccine HOLLIE RUSH MD [facility] 07-24-2001 hepatitis B vaccine, unspecified formulation HOLLIE RUSH MD [facility] 01-12-2001 hepatitis B vaccine, unspecified formulation HOLLIE RUSH MD [facility] 12-10-2000 hepatitis B vaccine, unspecified formulation HOLLIE RUSH MD [facility] 12-10-2000 measles/mumps/rubell a virus vaccine HOLLIE RUSH MD [facility] 06-07-1993 diphtheria, tetanus toxoids and acellular pertussis vaccine HOLLIE RUSH MD [facility] 06-07-1993 poliovirus vaccine, inactivated HOLLIE RUSH MD [facility] 11-06-1989 haemophilus influenz ae type b vaccine, PRP-T conjugate HOLLIE RUSH MD [facility] 08-22-1989 diphtheria, tetanus toxoids and acellular pertussis vaccine HOLLIE RUSH MD [facility] 08-22-1989 measles/mumps/rubell a virus vaccine HOLLIE RUSH MD [facility] 08-22-1989 poliovirus vaccine, inactivated HOLLIE RUSH MD [facility] 1988 diphtheria, tetanus toxoids and acellular pertussis vaccine HOLLIE RUSH MD [facility] 1988 diphtheria, tetanus toxoids and acellular pertussis vaccine HOLLIE RUSH MD [facility] 1988 poliovirus vaccine, inactivated HOLLIE RUSH MD [facility] 1988 diphtheria, tetanus toxoids and acellular pertussis vaccine HOLLIE RUSH MD [facility] 1988 poliovirus vaccine, inactivated HOLLIE RUSH MD [facility] Payers Date Payer Category Payer Self-pay 2021 Private Health Insurance [id number] 2020 Private Health Insurance [id number] 1988 Unknown [id number] 1988 Unknown [id number] [id number]7 1988 Unknown [id number] 2.16.840.1.770355.3.579.2.627 1988 Unknown [id number] 2.16.840.1.079097.3.579.2.627 1988 Unknown [id number] 2.16.840.1.567292.3.579.2.627 1988 Unknown [id number] 2.16.840.1.158645.3.579.2.627 1988 Unknown [id number] 2.16.840.1.006328.3.579.2.7 1988 Unknown [id number] 2.16.840.1.666869.3.579.2.627 1988 Unknown [id number] 2.16.840.1.113409.3.579.2.7 1988 Unknown [id number] 2.16840.1.153817.3.579.2.627 1988 Unknown [id number] 2.16.840.1.713275.3.579.2.7 1988 Unknown [id number] 2.16840.1.651929.3.579.2. 1988 Unknown [id number] 2.16.840.1.342925.3.579.2.627 Unknown [facility] [id number] Unknown [id number] 2.16.840.1.756552.3.579.2.462 Unknown [id number] 2.16840.1.830755.3.579.2.462 Unknown [id number] 2.16840.1.931403.3.579.2.462 Unknown [id number] 2.16840.1.707085.3.579.2.462 Unknown [id number] 2.16.840.1.252092.3.579.2.462 Unknown [id number] 2.16.840.1.120949.3.579.2.462 Unknown [id number] 2.16.840.1.832872.3.579.2.462 Unknown [id number] 2.16.840.1.989757.3.579.2.462 Unknown [id number] 2.16.840.1.385933.3.579.2.462 Unknown [id number] 2.16.840.1.827556.3.579.2.462 Unknown [id number] 2.16.840.1.270923.3.579.2.462 Social History Date Type Detail Facility Start: 09-21-2019 End: 03-01-2024 Never smoked tobacco (finding) [facility] Start: 1990 Sex Assigned At Female A [facility] Start: 12-07-2017 Tobacco use and exposure Smokeless tobacco non-user [facility] Start: 03-03-2023 Alcohol intake Ex-drinker (finding) [facility] Start: 04-05-2020 End: 03-03-2023 History of Social function [facility] Start: 04-05-2020 End: 03-03-2023 Tobacco use panel [facility] National Score (1-100), lower number is lower risk Not on file [facility] Start: 03-03-2023 Gender identity Identifies as female gender (finding) [facility] Start: 03-03-2023 Sexual orientation Heterosexual (cathy ortega) [facility] Start: 03-21-2020 End: 08-12-2024 Sex Female (finding) [facility] Sexual Orientation [facility] NEGATED: Highlighted row Not [facility] Medical Equipment Procedure Code Equipment Code Equipment Origin al Text Equipment Identifier Dates Myringotomy with insertion of tympanostomy tube using operating microscope Tympanostomy tube [id number] FDA Start: 04-06-2024 Goals Date Patient Goal Desired Activity /State Functional Status Date Assessment Result Facility 03-25-2022 Functional Status Awake [facility] 03-25-2022 Functional Status Maintained [facility] 01-28-2022 Functional Status Home Living Ad ditional Information Objective: Observation: Mild forward head posture. Tends to sit off center at times and weight shift frequently. Sensation: Grossly intact and symmetrical to light touch bilat LE's, Grossly intact and symmetrical to light touch on bilat UE's except for L lateral shoulder. Vitals: O2 sat:97% HR:92 , BP: 138/82 Reflexes: Quads R: 2+ L: 2+ Achilles R: 2+ L: 2+ Gait: No significant deficits Mild excess pronation bilat. [facility] Mental Status Date Assessment Result Facility 06-07-2024 Cognitive function Level Of Consciousness Drowsy [facility] Work Phone: 06-07-2024 Cognitive function Voice/Name [facility] Work Phone: 03-25-2022 Mental Status Oriented x 4 [facility] Clinical Notes 03-25-2022 to 08-10-2024 Note Date & Type Note Facility 08-10-2024 Nuclear medicine Diagnostic study note [facility] Imaging Services [address] [place], [place] [id number] Gastric Emptying Study - 4 HR MR#: [id number] Acct: [id number] Name: GHAZALA MARTIN Rep #: [id number] : 1990 F 34 From: Evans Sharif MD PCP: GERHARD Lopez Status: REG C [facility] Study:Gastric Emptying Study - 4 HR Date of E xam: 08/09/24 Exam# [id number] Ordering Dr: Carolyn Sanches PRODUCT DEVELOPMENT SPECIALIST-C PROCEDURE: GASTRIC EMPTYING STUDY - 4 HR 08/09/2024 REASON FOR EXAM: NAUSEA, EPIGASTRIC PAIN, EARLY SATIETY COMPARISON: None. TECHNIQUE: The patient ingested a standard meal of 2 pieces of bread with 2 eggs and 2 padsof butter. There was no vomiting postprandially. Anterior and posterior planar images of the upper abdomen were obtained for 1 minute immediately following the meal at 1h, 2h and 4h if more than 10% of the activity persisted within the stomach. Regions of interest were drawn, and a geometric mean was used to calculate a uxfx-uvjaopfe-xhhok. RADIOPHARMACEUTICAL: 1.1 mCi of technetium labeled sulfur colloid. FINDINGS: Percent activity remaining in stomach: 1 hour 22 % (normal 37-90%) 2 hours: 41 % (normal 30-60%) 4 hours: 91 % (normal 0-10%) NM/Gastric Emptying Study - 4 HR IMPRESSION: Normal gastric emptying examination. Reading Location: [place] [address] CC: GERHARD Sanches; GERHARD Brown ~ Rn Observation: Signed [facility] 06-07-2024 Note [facility] Medical Records Department [address] [place] [id number] History Physical Exam 06/07/24 0947 MR#: [id number] Acct: [id number] Name: GHAZALA MARTIN Rep #: [id number] : 1990 34 From: [facility] PCP: GERHARD Lopez Status:[facility] Location: HPI - General General Date of Admission: 06/07/24 Date of Service: 06/07/24 Chief Complaint: Abdominal pain bloating and diarrhea HPI Narrative GHAZALA MARTIN, is a 34 F who presents today for the endoscopic valuation of abdominal pain, bloating and diarrhea. She was referred by Haily Brown CNP for complaints of GERD and abdominal pain. CBC and CMP were unremarkable 03/08/2024. Records review reveals an unremarkable colonosocpy in 2016, mildly elevated fecal calprotectin (70.1) 2018, negative TTG IgA 2018, ABD US revealing for hepatic hemangiomas 2019, EGD with erosive esophagitis 2021, CTE suggestive of mild mucosal enhancement the last 7-8cm of ileum and sigmoid colon. PMH significant for fibromyalgia, GERD, IBS-D, and CKD3a. She complains of chronic GERD presently uncontrolled with rabeprazole and reports previously failing omeprazole, esomeprazole and lansoprazole. She complains of burning chest pain which radiates thorugh to her back with esophageal burning to mouth, cough at HS and occasional bile emesis. She c/o intractable nausea limiting her PO intake without weight loss. PMH is significant for CCX and she does experience intermittent diarrhea, previously failed Welchol. She denies following a GFD but reports previously testing with carpet mechanic revealed allergy to wheat, oats and celery and avoids these foods 90% of the time. I have switched PPI to PCAB and we will plan to repeat EGD. In terms of diarrhea and previously elevated calprotectin and abnormal CTE, I have ordered labs, stool testing and will arrange a colonoscopy. I terms of abdominal pain she will complete labs and we have discussed functional abdominal pain and possible treatment with TCA's in future. She has a history of IBS-D and we have discussed possibility of SIBO, I have recommended a FODMAP diet and will empirically treat her with rifaximin. FODMAP Colon EGD Xifaxan - [facility] - 20mg QD for 8 weeks then decrease to 10mg daily pending symptoms. Samples provided and RX sent to [facility] CBC: 06/02/2024 unremarkable CMP: 06/02/2024 unremarkable CRP: 06/02/2024 high 6.17 AMylase/Lipase: 06/02/2024 WNL FECAL CALPROTECTIN: C. DIFF: GIPCR: - she completed 12 days of Xifaxan - she reports pain worsened with the Xifaxan - she reports she was having diarrhea, then had 3 days of constipation and discontinued Xifaxan this past Friday - aching and then a stabbing pain - pain starts epigastric and radiates to LUQ to left flank and down left side - this is associated with feeling flushed, headaches, fatigue and generalized edema. - bending and sitting for long periods of time worsens pain - dicyclomine caused worsening cramping in the past - HB is much better on Voquezna PFSH Medical History History of Crohn's disease Heartburn Wears glasses History of renal disease Restless legs Gastric reflux Non-smoker Thyroid antibody positive Thyroglobulin antibody positive Fatigue Diarrhea GERD (gastroesophageal reflux disease) Anxiety and depression Fibromyalgia Erosive esophagitis Abdominal pain Home Medications ???Medication ???Instructions ???Recorded ???Last Taken ???Type cholecalciferol (vitamin D3) 1,250 1,250 mcg PO QMONTH 06/27/2201/20 History mcg (50,000 unit) capsule duloxetine 20 mg capsule,delayed 40 mg PO QHS 06/27/22 06/06/24 His tory release zolpidem 5 mg tablet 5 mg PO QHS PRN sleep 06/27/2201/19 History ascorbic acid (vitamin C) 250 mg 250 mg PO QDAY 03/29/24 06/06/24 H istory tablet estradiol 0.01% (0.1 mg/gram) 1 g vaginal 2XW 03/29/24 04/05/24 History vaginal cream (Estrace) estradiol 2 mg tablet 2 mg PO QDAY 03/29/24 06/06/24 His tory magnesium glycinate 200 mg PO DAILY 03/29/24 06/06/24 History vitamin E 100 unit tablet 100 unit PO DAILY 03/29/24 5 History vonoprazan 20 mg tablet (Voquezna) 20 mg PO QDAY erosive esophagiti s 03/29/24 06/06/24 Rx #30 tabs Allergy/AdvReac Type Severity Reaction Status Date / Time Pork/Porcine Containing Allergy Intermediate Other Verified 06/07/24 09:27 Products Family History Mother Asthma Cancer Diabetes Fibromyalgia Heart disease Hypertension Depression Lupus Rheumatoid arthritis Father Diabetes Hypertension Grandm (more content not included)... [facility] 03-04-2023 Evaluation note Diagnosis Stage 3a chronic kidney disease (HCC)- Primary Essential hypertension Unspecified essential hypertension documented in this encounter [facility]11-06-2023 NoteHNO ID: [id number] Author: Adrian Blackman MD Service: ? Author Type: Physician Type: Progress Notes Filed: 03/03/2023 2:51 PM Note Text: TEACHING PHYSICIAN NOTE OF PERSONAL INVOLVEMENT IN CARE I have reviewed the History and Physical Examination obtained and documented by Dr. Wooten and I personally participated in the bloom components. I have discussed the case and management of the patient's care and I agree with the formulated assessment and plan. My addendums if any are in BOLDED CAPS. In addition to above note: 32 yoF, self-referred, presenting for evaluation of CKD. She has been suffering from a constellation of symptoms that are quite debilitating, and including chronic diarrhea, and diffuse pains. She was diagnosed with fibromyalgia. She is being evaluated today for CKD. Review of her labs indicate an SCr ranging between 1.06-1.2 mg/dL. This has been stable for at least 2 years. She states that prior to 08/2020, she had normal eGFR that was in the 70s. She had a hysterectomy in 08/2020 for endometriosis and her GFR dropped to < 60. Unclear if she had an MIGUEL around that time. She did develop a post-operative incisional infection. No UA in the system. Kidneys noted to be small on US (KBUS 11/2022: 8.7 / 8.3 cm kidneys. No hydronephrosis). She denies use of NSAIDs and OTC meds. Serologies and monoclonals negative. UA without blood or protein. No family h/o dialysis. Dad with CKD w h/o HTN and DM She has a new diagnosis of hypertension. She is being managed with her PCP with diet / lifestyle changes prior to starting meds. She lost 20 lbs intentionally. Based on review of history and available labs, there is no indication that her kidneys are contributing to her current symptoms. Will check a UA and look at her urine sediment. Suspect that she has mild CKD d/t partially recovered MIGUEL dating to her hysterectomy but this is something that we cannot prove. In the absence of active urine (awaiting urine sample which we will review today), and with a SCr that is stable for over 2 years, it is not necessary to pursue further investigations or to consider a kidney biopsy. I spent > 45 minutes in the visit, with more than 50% of the total kauv-na-idom time of the visit in counseling / coordination of care. Adrian Blackman MD, FASN - Pager [phone] March 03, 2023 @ 1:54 [facility]11-06-2023 NotePatient Outreach ([place]) GHAZALA MARTIN ([id number]) 1990 F Date Time Provider Department 03/03/23 ADRIAN BLACKMAN During your visit today, we recorded the following information about you: Allergies As of Date: 03/03/2023 Noted Allergy Reaction BUSPIRONE 03/03/2023 8 - GI Upset GELATIN, PORK 03/03/2023 6 - Diarrhea 8 - GI Upset PANTOPRAZOLE 03/03/2023 8 - GI Upset PORK EXTRACT 03/03/2023 8 - GI Upset Date Reviewed: 03/03/2023 Reviewed by: Elvia Park MA - Fully Assessed Visit Diagnosis:Screening for genitourinary condition [Z13.89] Order(s):URINALYSIS, REFLEX MICROSCOPIC [FQF0181] Order #: [id number]. #:[id number] Prescriptions as of 03/06/2023 - zolpidem (AMBIEN) 5 mg tablet TAKE 1 TABLET BY MOUTH EVERY DAY AT BEDTIME for 30 days - RABEprazole (ACIPHEX) 20 mg tablet Take 20 mg by mouth. - colesevelam (WELCHOL) 625 mg tablet TAKE 3 TABLETS BY MOUTH EVERY DAY Oral for 90 - hydrocodone/acetaminophen (VICODIN ORAL) Take 325 mg by mouth two times a day. - fluticasone (FLONASE) 50 mcg/actuation nasal spray Use 2 Sprays in each nostril once daily. Rinse mouth after use. - loratadine (CLARITIN) 10 mg tablet Take 1 tablet by mouth once daily. - multivit-minerals/ferrous fum (MULTI VITAMIN ORAL) Take by mouth once daily. Problem List As Of Date 03/03/2023 Noted Resolved Abdominal pain [R10.9] 03/03/2023 Chronic GERD [K21.9] 03/03/2023 CKD (chronic kidney disease) [N18.9] 11/26/2022 Concussion without loss of consciousness [S06.0*03/03/2023 Contact dermatitis [L25.9] 03/03/2023 Daytime somnolence [R40.0] 03/03/2023 Diarrhea [R19.7] 03/03/2023 Dry eyes [H04.123] 03/03/2023 Edema [R60.9] 03/03/2023 Erosive esophagitis [K22.10] 03/25/2022 Fatigue [R53.83] 03/03/2023 Chronic pain [G89.29] 03/03/2023 Hypothyroidism [E03.9] 03/03/2023 Irritable bowel syndrome [K58.9] 03/03/2023 Mixed anxiety depressive disorder [F41.8] 03/03/2023 Muscle pain [M79.10] 03/03/2023 Neck swelling [R22.1] 03/03/2023 Rash [R21] 03/03/2023 Snoring [R06.83] 03/03/2023 Swelling of eyelid [H02.849] 03/03/2023 Urinary incontinence [R32] 03/03/2023 Encounter Status:Closed by EPIC, PRODUSER on 03/06/23[facility] 03-03-2023 History of Present illness Narrative* Adrian Blackman MD - 03/03/2023 1:54 PM EST TEACHING PHYSICIAN NOTE OF PERSONAL INVOLVEMENT IN CARE I have reviewed the History and Physical Examination obtained and documented by Dr. Wooten and I personally participated in the bloom components. I have discussed the case and management of the patient's care and I agree with the formulated assessment and plan. My addendums if any are in BOLDED CAPS. In addition to above note: 32 yoF, self-referred, presenting for evaluation of CKD. She has been suffering from a constellation of symptoms that are quite debilitating, and including chronic diarrhea, and diffuse pains. She was diagnosed with fibromyalgia. She is being evaluated today for CKD. Review of her labs indicate an SCr ranging between 1.06-1.2 mg/dL. This has been stable for at least 2 years. She states that prior to 08/2020, she had normal eGFR that was in the 70s. She had a hysterectomy in 08/2020 for endometriosis and her GFR dropped to < 60. Unclear if she had anAKI around that time. She did develop a post-operative incisional infection. No UA in the system. Kidneys noted to be small on US (KBUS 11/2022: 8.7 / 8.3 cm kidneys. No hydronephrosis). She denies use of NSAIDs and OTC meds. Serologies and monoclonals negative. UA without blood or protein. No family h/o dialysis. Dad with CKD w h/o HTN and DM She has a new diagnosis of hypertension. She is being managed with her PCP with diet / lifestyle changes prior to starting meds. She lost 20 lbs intentionally. Based on review of history and available labs, there is no indication that her kidneys are contributing to her current symptoms. Will check a UA and look at her urine sediment. Suspect that she has mild CKD d/t partially recovered MIGUEL dating to her hysterectomy but this is something that we cannot prove. In the absence of active urine (awaiting urine sample which we will review today), and with aSCr that is stable for over 2 years, it is not necessary to pursue further investigations or to consider a kidney biopsy. I spent > 45 minutes in the visit, with more than 50% of the total ketx-ue-hmhn time of the visit in counseling / coordination of care. Adrian Blackman MD, FASN - Pager [phone] March 03, 2023 @ 1:54 PM documented [facility] History and physical note * Ro Wooten DO - 03/03/2023 1:00 PM EST [facility] NEPHROLOGY [facility] HYPERTENSION [facility] SERVICE DATE: 03/03/2023 SERVICE TIME: 2:42 PM REASON FOR CONSULT: I am asked to see this patient in consultation for my opinion regarding CKDIIIA. My recommendations will be communicated by way of shared medical record, fax, or mail. REQUESTING PHYSICIAN: Self PRIMARY CARE PHYSICIAN: Jaelyn Li DO, DO CHIEF COMPLAINT: CKDIIIA HPI: Ms. Martin is a 32 year old female who presents with a h/o CKDIIIa, IBS, fibromyalgia and abdominal pain who presented to clinic today to discuss CKDIIA. Surgical History: 2009: Cholecystectomy 09/16/2020: hysterectomy and had post operative infection of her skin and related to her stiches shestates. - Noted that Pts GFR appears to drop post hysterectomy 2015: GFR>60 Has been getting b/l LE edema as well as notable facial edema. Pt admits also that she has urinary frequency, as well as urgency. When she is in a flair up of her symptoms she feels that she cannot fully empty her bladder. Never had a UTI that she is aware of. UA had LE and WBC previously, no RBC. Pt admits to night sweats, hot flashes, has lost about 20lbs (intentionally), she states that she can gain ~8lbs sometimes in fluid, which can go up her thighs b/l. Notes that she has edema in her b/l LE can sometimes get worse during the day. Pt states that your symptoms have been getting worse steadily. Has had EGD (ulcerative esophagitis on PPI), colonoscopy - nothing found on colonoscopy. Has been getting chronic diarrhea, which is somewhat improved. Welchol has helped with diarrhea. She has chronic nausea as well, she has periods where she cannot drink due to this. Pt admits to feeling light headed while in bed occasionally as well. Denies gross hematuria. Admits that sometimes she has had foamy urine. Last albumin 4.0. BP at home (bicep cuff) has been about ~137/147 at times as well. Pt was on HCTZ 12.5 but his has been stopped, this was for edema and not for her BP. Pt states that she recently saw her PCP and omar weldon started on a diet for her HTN has not been started on mediations. Has been on Raveprazole for her GERD. Does not get recurrent sinus infection, no eyes changes. Renal Us: 12/16/22: HISTORY: ORDERING SYSTEM PROVIDED HISTORY: Reason for Exam: ckd stage 3 FINDINGS: The right kidney measures 8.7 x 4.0 x 3.9 cm and the left kidney measures 8.3 x 3.9 x 3.5 cm. There is no evidence of hydronephrosis or perinephric fluid collections. Right extrarenal pelvis is again identified. No contour deforming upper hypoechoic renal cortical lesion is identified. Prevoid urinary bladder volume is 162 mL and the postvoid urinary bladder volume is 7 mL. No focal bladder lesion is identified. Color Doppler analysis reveals bilateral ureteral jets. IMPRESSION: Unremarkable bilateral renal and urinary bladder ultrasound. Recent Admissions: CKD Stage IIIA PROTEINURIA: Will obtain UA today HYPERKALEMIA: None noted on previous labs (4.4) on 11/2022 METABOLIC ACIDOSIS: None on previous labs (HCO3: 30) Repeat labs today SECONDARY HYPERPARATHYROIDISM: PTH: 57 (11/2022) Previous C and Phos Wnl Will repeat today HYPERTENSION Newly noted, Pt following with PCP currently doing lifestyle changes PREVENTION: Crestor 5mg Family History: Father: CKD - stable per Pt - H/o DM/HTN Nephrolithiasis: None seen on prior US NSAID Use: Denies NSAID use MEDICATION MANAGEMENT: Medications reviewed for accuracy with the patient and doses were confirmed and adjusted for current level of renal function. PAST MEDICAL HISTORY: PAST MEDICAL HISTORY Diagnosis Date CKD (chronic kidney disease) stage 3, GFR 30-59 ml/min ([facility]) Essential hypertension Fibromyalgia Generalized anxiety disorder IBS (irritable bowel syndrome) PAST SURGICAL HISTORY: PAST SURGICAL HISTORY Procedure Laterality Date TOTAL ABDOM HYSTERECTOMY FAMILY HISTORY: FAMILY HISTORY Problem Relation Age of Onset Diabetes Father Hypertension Father other (ckd) Father SOCIAL HISTORY: Social History Tobacco Use Smoking status: Never Smokeless tobacco: Never Substance Use Topics Alcohol use: Not Currently Drug use: Yes Types: Marijuana Comment: Medical marijuana PRN MEDICATIONS: DULoxetine (CYMBALTA) 20 mg capsule 2 CAP(S) ORALLY DAILY FOR 30 DAY(S) zolpidem (AMBIEN) 5 mg tablet TAKE 1 TABLET BY MOUTH EVERY DAY AT BEDTIME for 30 days RABEprazole (ACIPHEX) 20 mg tablet Take 20 mg by mouth. colesevelam (WELCHOL) 625 mg tablet TAKE 3 TABLETS BY MOUTH EVERY DAY Oral for 90 hydrocodone/acetaminophen (VICODIN ORAL) Take 325 mg by mouth two times a day. fluticasone (FLONASE) 50 mcg/actuation nasal spray Use 2 Sprays in each nostril once daily. Rinse mouth after use. (Patient not taking: Reported on 11/16/2020 ) loratadine (CLARITIN) 10 mg tablet Take 1 tablet by mouth once daily. (Patient not taking: Reportedon 11/16/2020 ) multivit-minerals/ferrous fum (MULTI VITAMIN ORAL) Take by mouth once daily. ALLERGIES: ALLERGIES Allergen Reactions Buspirone GI Upset Gelatin, Pork Diarrhea, GI Upset Pantoprazole GI Upset Pork Extract GI Upset REVIEW OF SYSTEMS: Negative except what is in HPI. PHYSICAL EXAM: BP 132/84 (BP Site: Right Arm, BP Position: Sitting, BP Cuff Size: Regular Adult) Pulse 74 Temp 36.9 C (98.4 F) (Oral) Ht 160 cm (5' 3) Wt 79.6 kg (175 lb 7.8 oz) BMI 31.09 kg/m Constitutional: No acute distress and Responsive Eyes: Conjunctiva clear Ear, Nose, and Throat: Hearing normal Neck:Trachea midline No jugular venous distension Cardiovascular:No peripheral edema Regular rate and ryhthm, normal S1 and S2, no murmurs, rubs, or gallops Respiratory: Normal respiratory effort. Abdomen:Soft, non-tender, non-distended. Normal bowel sounds. No hepatosplenomegaly. Musculoskeletal: No clubbing or cyanosis of digits. and Normocephalic. Neurologic:Normal sensation Psychiatric: Alert and oriented x self, place, time, and setting Normal mood/affect Skin: Noted rash b/l on posterior UE - mildly erythematous, dry appearing as keratosis pilaris BP - standardized method Pulse 1 BP #1: 136/80 Pulse #1: 79 beats/min 2 BP #2 : 137/93 Pulse #2 : 64 beats/min 3 BP #3 : 124/78 Pulse #3 : 79 beats/min Average Average BP: 132/84 Average Pulse: 74 beats/min Orthostatic vitals Supine Sitting Standing Standing BP : 144/80 Standing pulse : 76 BP cuff location BP cuff location: Right upper arm BP cuff size BP cuff size: regular adult Comments for BP values First BP (right) First BP (Right): 131/86 First BP (left) First BP (Left): 129/83 DATA: Diagnostic tests reviewed for today's visit: No results for input(s): COLOR, CLARITY, UGLUC, UBILI, UKET, SPGR, UHB, UPH, UPROT, NITRITES, LEUKEST, UWBC, URBC in the last 8784 hours. ASSESSMENT: 32 year old female who presents with a h/o CKDIIIa, IBS, fibromyalgia and abdominal pain who presented to clinic today to discuss CKDIIA. CKDIIIA B/l: unknown, Cr: 1.06 (11/2022) --> has been stable for several years Etiology: May have been due to post operative MIGUEL - Do have labs values which were GFR>60 prior to her hysterectomy Renal US: 11/2022: 8.7cm and 8.3cm, no hydro noted PVR: 7cc UA: will obtain today ANISH Negaitve (12/2021) Other Conditions IBS Fibromyalgia Insomnia PLAN: - Obtained UA today - Also ordered CMP to monitor renal function - No RBC noted previously, has been seen rheum, negative ANISH - Based on repeat UA as well as CMP may need additional testing to rule out renal involvement - Renal US has already been completed recently, small kidneys noted without other abnormalities - HTN noted to be recent and was seen by PCP for this Per Pt, recently started on lifestyle changesfor HTN - Will contact Pt with results, will set up follow up as needed based on this SIGNATURE: Ro Wooten DO PATIENT NAME: Ghazala Martin DATE: March 03, 2023 TIME: 2:42 PM CC: REFERRING PROVIDER: [facility] PRIMARY CARE PHYSICIAN: Jaelyn Li DO, DO documented in this encounter[facility]08-28-[facility] Note ORIGINAL EXAMINATION: ULTRASOUND OF THE KIDNEYS 12/23/2022 10:21 am COMPARISON: CT of the abdomen and pelvis dated 09/04/2022. HISTORY: ORDERING SYSTEM PROVIDED HISTORY: Reason for Exam: ckd stage 3 FINDINGS: The right kidney measures 8.7 x 4.0 x 3.9 cm and the left kidney measures 8.3 x 3.9 x 3.5 cm. There is no evidence of hydronephrosis or perinephric fluid collections. Right extrarenal pelvis is again identified. No contour deforming upper hypoechoic renal cortical lesion is identified. Prevoid urinary bladder volume is 162 mL and the postvoid urinary bladder volume is 7 mL. No focal bladder lesion is identified. Color Doppler analysis reveals bilateral ureteral jets. IMPRESSION: Unremarkable bilateral renal and urinary bladder ultrasound. Interpreted by: Adrian Alfaro Preliminary Report By: Adrian Alfaro Electronically signed By Adrian Alfaro Dictated Date: 12/23/2022 3:50:19 PM Prelim Date: 12/23/2022 3:52:40 PM Sign Date: 12/23/2022 3:52:40 PM Ordering Provider: [facility]11-28-2022 Evaluation + Plan noteExtracted from: Title:Clinical Document Author:JOANNE MURDOCK Date:03/25/22 [place] ADMISSION HISTORY AN D PHYSICIAL CHIEF COMPLAINT: HISTORY OF PRESENT ILLNESS: REVIEW OF SYSTEMS: ACTIVE PROBLEMS: (15) Abdominal pain ([id number]) Anxiety and depression (340837378) Chronic GERD (000193222) Chronic pain (556109549) Concussion without loss of consciousness (010468873) Contact dermatitis (14493331) Diarrhea (753224598) Edema (891614879) Fatigue (667763232) Fibromyalgia (595471880) GERD - Gastro-esophageal reflux disease (9472681317) IBS - Irritable bowel syndrome (3446129093) Incontinence of urine (0103550722) Joint pain (63705475) Rash (727812280) MEDICATIONS: Active Inpt Meds: None Active PRN Meds: None One Time Meds: None Active IV Meds: Lactated Ringers Infusion 1,000 mL (LR 1,000 mL) Start: 03/25/22 8:01:00 EST, Rate: 50 mL/hr, 03/25/22 8:01:00 EST ALLERGIES: (1) Pork FAMILY HISTORY: SOCIAL HISTORY: PHYSICAL EXAM: VITALS: [id number](kg) 03/25 07:5836.3--[id number]/28 84.1 24 Hr Tmax: 36.3 at 03/25 07:58 36 Hr Tmax: 36.3 at 03/25 07:58 Vital Signs are the last 5 in the past 48 hours. Weights display the last 5 within 7 days. Initial Wt: 03/25 84.1 kg 185 lb Current Wt: 03/25 84.1 kg 185 lb GENERAL: HEENT: CARDIOVASCULAR: RESPIRATORY: ABDOMEN: EXREMETIES: NEUROLOGICAL: PSYCHIATRIC: LABS: No 36hr Lab Data DIAGNOSTICS: IMPRESSION: PLAN: History and Physical Update I have examined the patient; reviewed the H&P and there are no changes to the H&P unless noted below. [facility] 11-28-2022 Hospital Discharge instructions Patient Education 03/25/2022 09:40:32 Gastroesophageal Reflux Disease, Adult, Flbf-wr-Fhqs Gastroesophageal Reflux Disease, Adult Gastroesophageal reflux (ROCIO) happens when acid from the stomach flows up into the tube that connects the mouth and the stomach (esophagus). Normally, food travels down the esophagus and stays in thestomach to be digested. With ROCIO, food and stomach acid sometimes move back up into the esophagus. You may have a disease called gastroesophageal reflux disease (GERD) if the reflux: Happens often. Causes frequent or very bad symptoms. Causes problems such as damage to the esophagus. When this happens, the esophagus becomes sore and swollen (inflamed). Over time, GERD can make small holes (ulcers) in the lining of the esophagus. What are the causes? This condition is caused by a problem with the muscle between the esophagus and the stomach. When this muscle is weak or not normal, it does not close properly to keep food and acid from coming back up from the stomach. The muscle can be weak because of: Tobacco use. . Having a certain type of hernia (hiatal hernia). Alcohol use. Certain foods and drinks, such as coffee, chocolate, onions, and peppermint. What increases the risk? You are more likely to develop this condition if you: Are overweight. Have a disease that affects your connective tissue. Use NSAID medicines. What are the signs or symptoms? Symptoms of this condition include: Heartburn. Difficult or painful swallowing. The feeling of having a lump in the throat. A bitter taste in the mouth. Bad breath. Having a lot of saliva. Having an upset or bloated stomach. Belching. Chest pain. Different conditions can cause chest pain. Make sure you see your doctor if you have chest pain. Shortness of breath or noisy breathing (wheezing). Ongoing (chronic) cough or a cough at night. Wearing away of the surface of teeth (tooth enamel). Weight loss. How is this treated? Treatment will depend on how bad your symptoms are. Your doctor may suggest: Changes to your diet. Medicine. Surgery. Follow these instructions at home: Eating and drinking Follow a diet as told by your doctor. You may need to avoid foods and drinks such as: ?Coffee and tea (with or without caffeine). ?Drinks that contain alcohol. ?Energy drinks and sports drinks. ?Bubbly (carbonated) drinks or sodas. ?Chocolate and cocoa. ?Peppermint and mint flavorings. ?Garlic and onions. ?Horseradish. ?Spicy and acidic foods. These include peppers, chili powder, mcdonald powder, vinegar, hot sauces, and BBQ sauce. ?Bracken fruit juices and citrus fruits, such as oranges, karen, and limes. ?Tomato-based foods. These include red sauce, chili, salsa, and pizza with red sauce. ?Fried and fatty foods. These include donuts, lithuanian fries, potato chips, and high-fat dressings. ?High-fat meats. These include hot dogs, rib eye steak, sausage, ham, and quintana. ?High-fat dairy items, such as whole milk, butter, and cream cheese. Eat small meals often. Avoid eating large meals. Avoid drinking large amounts of liquid with your meals. Avoid eating meals during the 2 3 hours before bedtime. Avoid lying down right after you eat. Do not exercise right after you eat. Lifestyle Do not use any products that contain nicotine or tobacco. These include cigarettes, e-cigarettes, and chewing tobacco. If you need help quitting, ask your doctor. Try to lower your stress. If you need help doing this, ask your doctor. If you are overweight, lose an amount of weight that is healthy for you. Ask your doctor about a safe weight loss goal. General instructions Pay attention to any changes in your symptoms. Take nbjk-fpj-mgavgub and prescription medicines only as told by your doctor. Do not take aspirin, ibuprofen, or other NSAIDs unless your doctor says it is okay. Wear loose clothes. Do not wear anything tight around your waist. Raise (elevate) the head of your bed about 6 inches (15 cm). Avoid bending over if this makes your symptoms worse. Keep all follow-up visits as told by your doctor. This is important. Contact a doctor if: You have new symptoms. You lose weight and you do not know why. You have trouble swallowing or it hurts to swallow. You have wheezing or a cough that keeps happening. Your symptoms do not get better with treatment. You have a hoarse voice. Get help right away if: You have pain in your arms, neck, jaw, teeth, or back. You feel sweaty, dizzy, or light-headed. You have chest pain or shortness of breath. You throw up (vomit) and your throw-up looks like blood or coffee grounds. You pass out (faint). Your poop (stool) is bloody or black. You cannot swallow, drink, or eat. Summary If a person has gastroesophageal reflux disease (GERD), food and stomach acid move back up into theesophagus and cause symptoms or problems such as damage to the esophagus. Treatment will depend on how bad your symptoms are. Follow a diet as told by your doctor. Take all medicines only as told by your doctor. This information is not intended to replace advice given to you by your health care provider. Make sure you discuss any questions you have with your health care provider. Document Released: 09/30/2008 Document Revised: 10/21/2018 Document Reviewed: 10/21/2018 [employer] Patient Education 2020 [employer] 03/25/2022 09:39:19 Monitored Anesthesia Care, Care After Monitored Anesthesia Care, Care After These instructions provide you with information about caring for yourself after your procedure. Your health care provider may also give you more specific instructions. Your treatment has been plannedaccording to current medical practices, but problems sometimes occur. Call your health care provider if you have any problems or questions after your procedure. What can I expect after the procedure? After your procedure, you may: Feel sleepy for several hours. Feel clumsy and have poor balance for several hours. Feel forgetful about what happened after the procedure. Have poor judgment for several hours. Feel nauseous or vomit. Have a sore throat if you had a breathing tube during the procedure. Follow these instructions at home: For at least 24 hours after the procedure: Have a responsible adult stay with you. It is important to have someone help care for you until youare awake and alert. Rest as needed. Do not: ?Participate in activities in which you could fall or become injured. ?Drive. ?Use heavy machinery. ?Drink alcohol. ?Take sleeping pills or medicines that cause drowsiness. ?Make important decisions or sign legal documents. ?Take care of children on your own. Eating and drinking Follow the diet that is recommended by your health care provider. If you vomit, drink water, juice, or soup when you can drink without vomiting. Make sure you have little or no nausea before eating solid foods. General instructions Take tzsp-dlt-nhyncic and prescription medicines only as told by your health care provider. If you have sleep apnea, surgery and certain medicines can increase your risk for breathing problems. Follow instructions from your health care provider about wearing your sleep device: ?Anytime you are sleeping, including during daytime naps. ?While taking prescription pain medicines, sleeping medicines, or medicines that make you drowsy. If you smoke, do not smoke without supervision. Keep all follow-up visits as told by your health care provider. This is important. Contact a health care provider if: You keep feeling nauseous or you keep vomiting. You feel light-headed. You develop a rash. You have a fever. Get help right away if: You have trouble breathing. Summary For several hours after your procedure, you may feel sleepy and have poor judgment. Have a responsible adult stay with you for at least 24 hours or until you are awake and alert. This information is not intended to replace advice given to you by your health care provider. Make sure you discuss any questions you have with your health care provider. Document Released: 08/04/2016 Document Revised: 07/13/2018 Document Reviewed: 08/04/2016 [employer] Patient Education 2020 [employer] 03/25/2022 09:39:10 Helicobacter Pylori Antibodies Test Helicobacter Pylori Antibodies Test Why am I having this test? This test is used to check for a type of bacteria called Helicobacter pylori (H. pylori). H. pylorican be found in the cells that line the stomach. Having high levels of H. pylori in your stomach puts you at risk for: Stomach ulcers and small bowel ulcers. Long-term (chronic) inflammation of the lining of the stomach. Ulcers in the part of the body that moves food from the mouth to the stomach (esophagus). Stomach cancer if the infection is not treated. Most people with H. pylori in their stomach have no symptoms. Your health care provider may ask youto have this test if you have symptoms of a stomach ulcer or small bowel ulcer, such as stomach pain before or after eating, heartburn, or nausea after eating. What is being tested? This test checks your blood for antibodies to the H. pylori bacteria. Antibodies are proteins made by your immune system to fight germs and infection. The test checks for antibodies that the immune system produces in response to infection with H. pylori. What kind of sample is taken? A blood sample is required for this test. It is usually collected by inserting a needle into a blood vessel or by sticking a finger with a small needle. Tell a health care provider about: All medicines you are taking, including vitamins, herbs, eye drops, creams, and rswo-zua-qzbinxk medicines. How are the results reported? Your test results will be reported as values that are categorized as positive, negative, or equivocal. Equivocal means that your results are neither positive nor negative. Your health care provider will compare your results to normal ranges that were established after testing a large group of people (reference ranges). Reference ranges may vary among labs and hospitals. For this test, common reference ranges for the two types of antibodies that may be tested are: IgG antibodies: ?Less than 0.75 units/mL. This is negative. ?Greater than or equal to 1 unit/mL. This is positive. ?0.75 0.99 units/mL. This is equivocal. IgM antibodies: ?Less than or equal to 30 units/mL. This is negative. ?Greater than or equal to 40 units/mL. This is positive. ?30.01 39.99 units/mL. This is equivocal. What do the results mean? Test results that are higher than normal, or positive, may indicate various health conditions, suchas: Short-term or long-term irritation of the stomach lining (gastritis). Small bowel ulcer. Stomach ulcer. Stomach cancer. Talk with your health care provider about what your results mean. Questions to ask your health care provider Ask your health care provider, or the department that is doing the test: When will my results be ready? How will I get my results? What are my treatment options? What other tests do I need? What are my next steps? Summary This test is used to check for a type of bacteria called Helicobacter pylori (H. pylori). Having high levels of H. pylori in your stomach puts you at risk for ulcers in the gastrointestinal tract or stomach cancer. This test checks your blood for antibodies to the H. pylori bacteria. Most people with H. pylori in their stomach have no symptoms. Your health care provider may ask youto have this test if you have symptoms of a stomach ulcer or small bowel ulcer, such as stomach pain before or after eating, heartburn, or nausea after eating. Talk with your health care provider about what your results mean. This information is not intended to replace advice given to you by your health care provider. Make sure you discuss any questions you have with your health care provider. Document Released: 05/08/2005 Document Revised: 03/27/2018 Document Reviewed: 11/25/2017 [employer] Patient Education 2020 [employer]. 03/25/2022 09:39:03 Esophagogastroduodenoscopy, Care After (08395) Esophagogastroduodenoscopy, Care After Refer to this sheet in the next few weeks. These instructions provide you with information about caring for yourself after your procedure. Your health care provider may also give you more specific instructions. Your treatment has been planned according to current medical practices, but problems sometimes occur. Call your health care provider if you have any problems or questions after your procedure. What can I expect after the procedure? After the procedure, it is common to have: A sore throat. Nausea. Bloating. Dizziness. Fatigue. Follow these instructions at home: Do not eat or drink anything until the numbing medicine (local anesthetic) has worn off and your gag reflex has returned. You will know that the local anesthetic has worn off when you can swallow comfortably. Do not drive for 24 hours if you received a medicine to help you relax (sedative). If your health care provider took a tissue sample for testing during the procedure, make sure to get your test results. This is your responsibility. Ask your health care provider or the department performing the test when your results will be ready. Keep all follow-up visits as told by your health care provider. This is important. Contact a health care provider if: You cannot stop coughing. You are not urinating. You are urinating less than usual. Get help right away if: You have trouble swallowing. You cannot eat or drink. You have throat or chest pain that gets worse. You are dizzy or light-headed. You faint. You have nausea or vomiting. You have chills. You have a fever. You have severe abdominal pain. You have black, tarry, or bloody stools. This information is not intended to replace advice given to you by your health care provider. Make sure you discuss any questions you have with your health care provider. Document Released: 03/31/2013 Document Revised: 09/19/2016 Document Reviewed: 03/07/2016 [employer] Patient Education 2019 [employer]. Follow Up Care 03/04/2022 12:48:11 With:JOANNE MURDOCK MD Address: [address] [address] [address] [place] [address] [phone] When: Unknown Comments:A TEST FOR H PYLORI WAS DONE TODAY. CALL DR MURDOCK WITH ANY QUESTIONS OR CONCERNS. GO TO THE EMERGENCY ROOM WITH ANY URGENT CONCERNS. [facility] 11-28-2022 Summary of episode note Discharge Instructions Thank you for allowing [facility] to assist you with your healthcare needs. The following is importantdischarge information regarding your hospital visit. Your Care Team HAILY BROWN APRN-RAMAN MURDOCK Your Diagnosis EGD WITH H PYLORI TEST. What to do next Follow Up Appointments Follow Up with JOANNE MURDOCK MD When Why: A TEST FOR H PYLORI WAS DONE TODAY. CALL DR MURDOCK WITH ANY QUESTIONS OR CONCERNS. GO TO THE EMERGENCY ROOM WITH ANY URGENT CONCERNS. Where: [address] [facility] [address] [place] [address] [phone] Allergies Pork (Diarrhea, Nausea) Medications Please ask your primary doctor or pharmacist before taking any other medication not listed, including over the counter drugs, herbal medications, vitamins and or supplements as they may interact withyour home medications. What How Much When Instructions Last Dose Unchanged cholecalciferol (Vitamin D3 1250 mcg (50,000 intl units) oral capsule) 1 cap by mouth Every week Unchanged colesevelam (Welchol 625 mg oral tablet) 3 tab(s) by mouth Once a day Unchanged DULoxetine (DULoxetine 20 mg oral delayed release capsule) 3 cap by mouth Once a day Duration: 30 Days Unchanged esomeprazole (NexIUM 20 mg oral delayed release capsule) 1 cap by mouth Once a day Unchanged estradiol (Estradiol Patch 0.1 mg/ 24 hours weekly transdermal film, extended release) 1 patch(es) Topical Every week Unchanged hydroCHLOROthiazide (hydroCHLOROthiazide 12.5 mg oral tablet) 1 tab(s) by mouth Once a day Duration: 30 Days Unchanged tiZANidine (tiZANidine 4 mg oral tablet) 1 tab(s) by mouth Every 8 hours Duration: 30 Days Please d/ c previous rx for 8 mg dose Unchanged zolpidem (zolpidem 5 mg oral tablet) Please take this list to your next doctor s visit. Bring all medications you take, including over the counter medications, herbals and other supplements with you to your doctor s visit. Patients and families are reminded to discard old lists and to update any records with all medication providers or retail pharmacies. Education Materials Gastroesophageal Reflux Disease, Adult Gastroesophageal reflux (ROCIO) happens when acid from the stomach flows up into the tube that connects the mouth and the stomach (esophagus). Normally, food travels down the esophagus and stays in thestomach to be digested. With ROCIO, food and stomach acid sometimes move back up into the esophagus. You may have a disease called gastroesophageal reflux disease (GERD) if the reflux: Happens often. Causes frequent or very bad symptoms. Causes problems such as damage to the esophagus. When this happens, the esophagus becomes sore and swollen (inflamed). Over time, GERD can make small holes (ulcers) in the lining of the esophagus. What are the causes? This condition is caused by a problem with the muscle between the esophagus and the stomach. When this muscle is weak or not normal, it does not close properly to keep food and acid from coming back up from the stomach. The muscle can be weak because of: Tobacco use. . Having a certain type of hernia (hiatal hernia). Alcohol use. Certain foods and drinks, such as coffee, chocolate, onions, and peppermint. What increases the risk? You are more likely to develop this condition if you: Are overweight. Have a disease that affects your connective tissue. Use NSAID medicines. What are the signs or symptoms? Symptoms of this condition include: Heartburn. Difficult or painful swallowing. The feeling of having a lump in the throat. A bitter taste in the mouth. Bad breath. Having a lot of saliva. Having an upset or bloated stomach. Belching. Chest pain. Different conditions can cause chest pain. Make sure you see your doctor if you have chest pain. Shortness of breath or noisy breathing (wheezing). Ongoing (chronic) cough or a cough at night. Wearing away of the surface of teeth (tooth enamel). Weight loss. How is this treated? Treatment will depend on how bad your symptoms are. Your doctor may suggest: Changes to your diet. Medicine. Surgery. Follow these instructions at home: Eating and drinking Follow a diet as told by your doctor. You may need to avoid foods and drinks such as: ? Coffee and tea (with or without caffeine). ? Drinks that contain alcohol. ? Energy drinks and sports drinks. ? Bubbly (carbonated) drinks or sodas. ? Chocolate and cocoa. ? Peppermint and mint flavorings. ? Garlic and onions. ? Horseradish. ? Spicy and acidic foods. These include peppers, chili powder, mcdonald powder, vinegar, hot sauces, andBBQ sauce. ? Bracken fruit juices and citrus fruits, such as oranges, karen, and limes. ? Tomato-based foods. These include red sauce, chili, salsa, and pizza with red sauce. ? Fried and fatty foods. These include donuts, lithuanian fries, potato chips, and high-fat dressings. ? High-fat meats. These include hot dogs, rib eye steak, sausage, ham, and quintana. ? High-fat dairy items, such as whole milk, butter, and cream cheese. Eat small meals often. Avoid eating large meals. Avoid drinking large amounts of liquid with your meals. Avoid eating meals during the 2 3 hours before bedtime. Avoid lying down right after you eat. Do not exercise right after you eat. Lifestyle Do not use any products that contain nicotine or tobacco. These include cigarettes, e-cigarettes, and chewing tobacco. If you need help quitting, ask your doctor. Try to lower your stress. If you need help doing this, ask your doctor. If you are overweight, lose an amount of weight that is healthy for you. Ask your doctor about a safe weight loss goal. General instructions Pay attention to any changes in your symptoms. Take mbfn-exa-efjliym and prescription medicines only as told by your doctor. Do not take aspirin, ibuprofen, or other NSAIDs unless your doctor says it is okay. Wear loose clothes. Do not wear anything tight around your waist. Raise (elevate) the head of your bed about 6 inches (15 cm). Avoid bending over if this makes your symptoms worse. Keep all follow-up visits as told by your doctor. This is important. Contact a doctor if: You have new symptoms. You lose weight and you do not know why. You have trouble swallowing or it hurts to swallow. You have wheezing or a cough that keeps happening. Your symptoms do not get better with treatment. You have a hoarse voice. Get help right away if: You have pain in your arms, neck, jaw, teeth, or back. You feel sweaty, dizzy, or light-headed. You have chest pain or shortness of breath. You throw up (vomit) and your throw-up looks like blood or coffee grounds. You pass out (faint). Your poop (stool) is bloody or black. You cannot swallow, drink, or eat. Summary If a person has gastroesophageal reflux disease (GERD), food and stomach acid move back up into theesophagus and cause symptoms or problems such as damage to the esophagus. Treatment will depend on how bad your symptoms are. Follow a diet as told by your doctor. Take all medicines only as told by your doctor. This information is not intended to replace advice given to you by your health care provider. Make sure you discuss any questions you have with your health care provider. Document Released: 09/30/2008 Document Revised: 10/21/2018 Document Reviewed: 10/21/2018 [employer] Patient Education 2020 [employer] Monitored Anesthesia Care, Care After These instructions provide you with information about caring for yourself after your procedure. Your health care provider may also give you more specific instructions. Your treatment has been plannedaccording to current medical practices, but problems sometimes occur. Call your health care provider if you have any problems or questions after your procedure. What can I expect after the procedure? After your procedure, you may: Feel sleepy for several hours. Feel clumsy and have poor balance for several hours. Feel forgetful about what happened after the procedure. Have poor judgment for several hours. Feel nauseous or vomit. Have a sore throat if you had a breathing tube during the procedure. Follow these instructions at home: For at least 24 hours after the procedure: Have a responsible adult stay with you. It is important to have someone help care for you until youare awake and alert. Rest as needed. Do not: ? Participate in activities in which you could fall or become injured. ? Drive. ? Use heavy machinery. ? Drink alcohol. ? Take sleeping pills or medicines that cause drowsiness. ? Make important decisions or sign legal documents. ? Take care of children on your own. Eating and drinking Follow the diet that is recommended by your health care provider. If you vomit, drink water, juice, or soup when you can drink without vomiting. Make sure you have little or no nausea before eating solid foods. General instructions Take evry-jup-bahkqcj and prescription medicines only as told by your health care provider. If you have sleep apnea, surgery and certain medicines can increase your risk for breathing problems. Follow instructions from your health care provider about wearing your sleep device: ? Anytime you are sleeping, including during daytime naps. ? While taking prescription pain medicines, sleeping medicines, or medicines that make you drowsy. If you smoke, do not smoke without supervision. Keep all follow-up visits as told by your health care provider. This is important. Contact a health care provider if: You keep feeling nauseous or you keep vomiting. You feel light-headed. You develop a rash. You have a fever. Get help right away if: You have trouble breathing. Summary For several hours after your procedure, you may feel sleepy and have poor judgment. Have a responsible adult stay with you for at least 24 hours or until you are awake and alert. This information is not intended to replace advice given to you by your health care provider. Make sure you discuss any questions you have with your health care provider. Document Released: 08/04/2016 Document Revised: 07/13/2018 Document Reviewed: 08/04/2016 [employer] Patient Education 2020 [employer] Helicobacter Pylori Antibodies Test Why am I having this test? This test is used to check for a type of bacteria called Helicobacter pylori (H. pylori). H. pylorican be found in the cells that line the stomach. Having high levels of H. pylori in your stomach puts you at risk for: Stomach ulcers and small bowel ulcers. Long-term (chronic) inflammation of the lining of the stomach. Ulcers in the part of the body that moves food from the mouth to the stomach (esophagus). Stomach cancer if the infection is not treated. Most people with H. pylori in their stomach have no symptoms. Your health care provider may ask youto have this test if you have symptoms of a stomach ulcer or small bowel ulcer, such as stomach pain before or after eating, heartburn, or nausea after eating. What is being tested? This test checks your blood for antibodies to the H. pylori bacteria. Antibodies are proteins made by your immune system to fight germs and infection. The test checks for antibodies that the immune system produces in response to infection with H. pylori. What kind of sample is taken? A blood sample is required for this test. It is usually collected by inserting a needle into a blood vessel or by sticking a finger with a small needle. Tell a health care provider about: All medicines you are taking, including vitamins, herbs, eye drops, creams, and ucye-umr-csbgjlh medicines. How are the results reported? Your test results will be reported as values that are categorized as positive, negative, or equivocal. Equivocal means that your results are neither positive nor negative. Your health care provider will compare your results to normal ranges that were established after testing a large group of people (reference ranges). Reference ranges may vary among labs and hospitals. For this test, common reference ranges for the two types of antibodies that may be tested are: IgG antibodies: ? Less than 0.75 units/mL. This is negative. ? Greater than or equal to 1 unit/mL. This is positive. ? 0.75 0.99 units/mL. This is equivocal. IgM antibodies: ? Less than or equal to 30 units/mL. This is negative. ? Greater than or equal to 40 units/mL. This is positive. ? 30.01 39.99 units/mL. This is equivocal. What do the results mean? Test results that are higher than normal, or positive, may indicate various health conditions, suchas: Short-term or long-term irritation of the stomach lining (gastritis). Small bowel ulcer. Stomach ulcer. Stomach cancer. Talk with your health care provider about what your results mean. Questions to ask your health care provider Ask your health care provider, or the department that is doing the test: When will my results be ready? How will I get my results? What are my treatment options? What other tests do I need? What are my next steps? Summary This test is used to check for a type of bacteria called Helicobacter pylori (H. pylori). Having high levels of H. pylori in your stomach puts you at risk for ulcers in the gastrointestinal tract or stomach cancer. This test checks your blood for antibodies to the H. pylori bacteria. Most people with H. pylori in their stomach have no symptoms. Your health care provider may ask youto have this test if you have symptoms of a stomach ulcer or small bowel ulcer, such as stomach pain before or after eating, heartburn, or nausea after eating. Talk with your health care provider about what your results mean. This information is not intended to replace advice given to you by your health care provider. Make sure you discuss any questions you have with your health care provider. Document Released: 05/08/2005 Document Revised: 03/27/2018 Document Reviewed: 11/25/2017 [employer] Patient Education 2020 [employer]. Esophagogastroduodenoscopy, Care After Refer to this sheet in the next few weeks. These instructions provide you with information about caring for yourself after your procedure. Your health care provider may also give you more specific instructions. Your treatment has been planned according to current medical practices, but problems sometimes occur. Call your health care provider if you have any problems or questions after your procedure. What can I expect after the procedure? After the procedure, it is common to have: A sore throat. Nausea. Bloating. Dizziness. Fatigue. Follow these instructions at home: Do not eat or drink anything until the numbing medicine (local anesthetic) has worn off and your gag reflex has returned. You will know that the local anesthetic has worn off when you can swallow comfortably. Do not drive for 24 hours if you received a medicine to help you relax (sedative). If your health care provider took a tissue sample for testing during the procedure, make sure to get your test results. This is your responsibility. Ask your health care provider or the department performing the test when your results will be ready. Keep all follow-up visits as told by your health care provider. This is important. Contact a health care provider if: You cannot stop coughing. You are not urinating. You are urinating less than usual. Get help right away if: You have trouble swallowing. You cannot eat or drink. You have throat or chest pain that gets worse. You are dizzy or light-headed. You faint. You have nausea or vomiting. You have chills. You have a fever. You have severe abdominal pain. You have black, tarry, or bloody stools. This information is not intended to replace advice given to you by your health care provider. Make sure you discuss any questions you have with your health care provider. Document Released: 03/31/2013 Document Revised: 09/19/2016 Document Reviewed: 03/07/2016 [employer] Patient Education 2019 [employer] Additional Information VACCINATE! IT SAVES LIVES! Members of the community who have not yet received the COVID-19 vaccine and would like to receive it can visit one of [facility] vaccine clinics. There are many vaccine clinic locations within the [facility]. For locations and available times, please visit [email or web address] It is important to note that some COVID mobile vaccine clinics are held outdoors and may be canceled in rainy or stormy conditions. To learn more about pediatric vaccinations (ages 5-11), we invite you to visit the [facility] webpage. [email or web address] learn more about the COVID-19 vaccine, we invite you to visit the [facility] website for a list of frequently asked questions. [email or web address] [facility] Patient Portal Access Instructions: Stay connected with your healthcare team and access your personal medical information anytime with the [facility] Patient Portal.If you would like a full copy of your medical records, please contact the [facility] Medical Records Department, Friday through Friday between 8a.m. and 4:30p.m. Please follow the directions below to access the portal: 1.Access the email account you provided upon registration to the [facility].2.Look for an invitation email from [facility].3.Open the email and access the invitation link: Accept Invitation to [employer]4.Fill in the required herrera to create your account. Sign into [email or web address] with your username and password that you created in the above steps to stay up to date. You can then view a summary of results, a summary of your visits, and the ability to download your summaries to your computer or send the information securely to a physician. Remember that your healthcare information is confidential, so carefully consider who you will allow to register on the [employer] Patient Portal for access to your information. You can also access the [facility] Patient Portal on the [employer]. Simply click on Health Records under [employer] and then click on the [employer] logo. HOW TO SAFELY DISPOSE OF PRESCRIPTION MEDICATIONS Please use one of the following methods to safely dispose of your unused medications. 1.Use a drug disposal kit: the drug disposal pouch allows you to safely discard your old and unuseddrugs. Ask your nurse to give you one when you are discharged.2.Visit a local take-back location: Many local pharmacies and police departments have programs that collect old and unwanted prescriptiondrugs. Call your local pharmacy or go to http://CIQUAL.FitStar/7O2Ro8u to find one close to you.3.Make use of household items: Use cat litter or old coffee grounds to dispose medications if other options arenot available. Mix your drugs with these household products, seal them in an airtight container andthrow it into the garbage. Call [facility]: [phone] to be sure your drugs can be disposed of in this way. Some medicines may require a different approach.4.Never flush your medications down the toilet. IF YOU HAVE BEEN PRESCRIBED AN OPIOID FOR PAIN If you have been prescribed an opioid (such as hydrocodone, oxycodone or morphine), it is critical to understand the possible side effects and risks of opioid pain medications. Even when taken as directed, opioids can have several side effects including: Tolerance, meaning you might need to take more of a medication for the same pain relief. Nausea, vomiting and/or constipation. Sleepiness, dizziness, dry mouth, confusion, depression or itching. Physical dependence, meaning you have withdrawal symptoms when a medication is stopped, can develop within a few days. KNOW YOUR RESPONSIBILITIES It is important to know exactly how much and how often to take the opioid pain medications you are prescribed. Never take opioids in higher amounts or more often than prescribed. Do not combine opioids with alcohol or other drugs that cause drowsiness, such as benzodiazepines, also known as benzos, including diazepam and alprazolam, muscle relaxants or sleep aids. Never sell or share prescription opioids. This is illegal. Store opioids in a secure place and out of reach of others (including children, family, friends and visitors). The last page of this document has been signed and retained as a CHART COPY. Signatures Patient Education Materials Gastroesophageal Reflux Disease, Adult, Ewas-lf-Fhyf Monitored Anesthesia Care, Care After Helicobacter Pylori Antibodies Test Esophagogastroduodenoscopy, Care After (48935) Medication Leaflets My discharge plan and instructions have been reviewed and explained to me and I,GHAZALA MARTIN understand my current condition and have read and understand these discharge instructions. I have received a written copy of the plan/instructions. If I have questions, I am aware that I should contact my doctor. Patient/Jumbo Operator Signature: Date/Time: Relationship to Patient: Witness Name/Signature: Date/Time: [facility]11-28-2022 Anesthesiology Consult note Patient: GHAZALA MARTIN Age: 31 years Sex: Female : 1990 Associated Diagnoses: None Author: MANSOOR ROACH APRN-MACHINE SKIVER Assessment Postanesthesia assessment Vitals: Vital signs from flowsheet : Vital Signs 03/25/2022 9:20 EST Heart Rate Monitored 98 bpm bpm Respiratory Rate - Anes 16 br/min br/min 03/25/2022 9:15 EST Heart Rate Monitored 96 bpm bpm Respiratory Rate - Anes 10 br/min br/min Systolic Blood Pressure Non-Invasive 113 mmHg mmHg Diastolic Blood Pressure Non-Invasive 66 mmHg mmHg 03/25/2022 9:10 EST Heart Rate Monitored 89 bpm bpm Respiratory Rate - Anes 11 br/min br/min Systolic Blood Pressure Non-Invasive 118 mmHg mmHg Diastolic Blood Pressure Non-Invasive 72 mmHg mmHg 03/25/2022 7:58 EST Temperature Temporal Artery 36.3 DegC Peripheral Pulse Rate 84 bpm Respiratory Rate 15 br/min Systolic Blood Pressure Non-Invasive 126 mmHg Diastolic Blood Pressure Non-Invasive 80 mmHg , Measurements from flowsheet . Mental status: alert & oriented x 4. Respiratory function: respirations are non-labored. Respiratory support: none. CV function: Normal rate. Cardiovascular support: none. Pain. Nausea status: see nursing documentation of medications. Postoperative hydration status: within normal limits. Digitally Signed by MANSOOR ROACH on 03/25/2022 09:25 AM [facility]11-28-2022 Note [place] ADMISSION HISTORY AND PHYSICIAL CHIEF COMPLAINT: HISTORY OF PRESENT ILLNESS: REVIEW OF SYSTEMS: ACTIVE PROBLEMS: (15) Abdominal pain (89385081) Anxiety and depression (951999952) Chronic GERD (973767741) Chronic pain (526716417) Concussion without loss of consciousness (521809606) Contact dermatitis (37203132) Diarrhea (268613086) Edema (992975869) Fatigue (061279426) Fibromyalgia (837392287) GERD - Gastro-esophageal reflux disease (0082838935) IBS - Irritable bowel syndrome (8239131295) Incontinence of urine (0420862669) Joint pain (18146774) Rash (711272264) MEDICATIONS: Active Inpt Meds: None Active PRN Meds: None One Time Meds: None Active IV Meds: Lactated Ringers Infusion 1,000 mL (LR 1,000 mL) Start: 03/25/22 8:01:00 EST, Rate: 50 mL/hr, 03/25/22 8:01:00 EST ALLERGIES: (1) Pork FAMILY HISTORY: SOCIAL HISTORY: PHYSICAL EXAM: VITALS: [id number](kg) 03/25 07:5836.3--320992IB39/28 84.1 24 Hr Tmax: 36.3 at 03/25 07:58 36 Hr Tmax: 36.3 at 03/25 07:58 Vital Signs are the last 5 in the past 48 hours. Weights display the last 5 within 7 days. Initial Wt: 03/25 84.1 kg 185 lb Current Wt: 03/25 84.1 kg 185 lb GENERAL: HEENT: CARDIOVASCULAR: RESPIRATORY: ABDOMEN: EXREMETIES: NEUROLOGICAL: PSYCHIATRIC: LABS: No 36hr Lab Data DIAGNOSTICS: IMPRESSION: PLAN: History and Physical Update I have examined the patient; reviewed the H&P and there are no changes to the H&P unless noted below. Digitally Signed by JOANNE MURDOCK MD on 03/25/2022 09:14 AM [facility]11-28-2022 Anesthesiology Consult note Patient: GHAZALA MARTIN Age: 31 years Sex: Female : 1990 Associated Diagnoses: None Author: MANSOOR ROACH Preoperative Information Time of last food or liquid consumption: 03/25/2022 00:00:00 Anesthesia history Patient's history: negative. Family's history: negative. Health Status Allergies: Allergic Reactions (Selected) Severity Not Documented Pork- Nausea and diarrhea., Allergies (1) ActiveReaction PorkNausea Current medications: (Selected) Inpatient Medications Ordered LR 1,000 mL: 50 mL/hr, Intravenous Prescriptions Prescribed DULoxetine 20 mg oral delayed release capsule: 60 mg, 3 cap(s), Oral, qDay, for 30 day(s), 90 cap(s), 11 Refill(s) Estradiol Patch 0.1 mg/24 hours weekly transdermal film, extended release: 1 patch(es), Topical, qWeek, 12 patch(es), 3 Refill(s) Vitamin D3 1250 mcg (50,000 intl units) oral capsule: 50,000 International_Unit, 1 cap(s), Oral, qWeek, 12 cap(s), 3 Refill(s) Welchol 625 mg oral tablet: 1,875 mg, 3 tab(s), Oral, qDay, 270 tab(s), 3 Refill(s) hydroCHLOROthiazide 12.5 mg oral tablet: 12.5 mg, 1 tab(s), Oral, qDay, for 30 day(s), 30 tab(s), 0Refill(s) tiZANidine 4 mg oral tablet: 4 mg, 1 tab(s), Oral, q8h, for 30 day(s), Please d/c previous rx for 8mg dose, 90 tab(s), 0 Refill(s) Documented Medications Documented NexIUM 20 mg oral delayed release capsule: 20 mg, 1 cap(s), Oral, qDay, 30 cap(s), 0 Refill(s) zolpidem 5 mg oral tablet: 0 Refill(s), Medications (1) Active Scheduled: (0) Continuous: (1) Lactated Ringers 1,000 mL 1,000 mL, Intravenous, 50 mL/hr PRN: (0) Problem list: Medical Abdominal pain / SNOMED CT 57690378 / Confirmed Chronic pain / SNOMED CT 628299781 / Confirmed Concussion without loss of consciousness / SNOMED CT 288151240 / Confirmed Contact dermatitis / SNOMED CT 74304140 / Confirmed Diarrhea / SNOMED CT 623685881 / Confirmed Edema / SNOMED CT 238810120 / Confirmed Rash / SNOMED CT 133964896 / Confirmed Fatigue / SNOMED CT 518076488 / Confirmed Fibromyalgia / SNOMED CT 193283449 / Confirmed Chronic GERD / SNOMED CT 143387919 / Confirmed GERD - Gastro-esophageal reflux disease / SNOMED CT 5425494969 / Confirmed IBS - Irritable bowel syndrome / SNOMED CT 8335445966 / Confirmed Joint pain / SNOMED CT 56819683 / Confirmed Anxiety and depression / SNOMED CT 574627488 / Confirmed Incontinence of urine / SNOMED CT 7973814286 / Confirmed, Active Problems (15) Abdominal pain Anxiety and depression Chronic GERD Chronic pain Concussion without loss of consciousness Contact dermatitis Diarrhea Edema Fatigue Fibromyalgia GERD - Gastro-esophageal reflux disease IBS - Irritable bowel syndrome Incontinence of urine Joint pain Rash Histories Past Medical History: Resolved Depression (248936974): Resolved. Carpal tunnel syndrome (21350792): Resolved. (223032675): Resolved. Family History: Cancer Mother (Wendi Coleman, ) Comments: 04/19/2019 10:44 Yola Brandon STONEWORKING BELT SANDER ovarian Grandparent Comments: 04/19/2019 10:44 Yola Brandon CMA bone Thyroid disease Mother (Wendi Coleman, ) Asthma Mother (Wendi Coleman, ) Daughter (Neema Martin) Grandparent Lupus Mother (Wendi Coleman, ) Paternal Aunt Breast cancer Grandparent Rheumatoid arthritis Mother (Wendi Coleman, ) Hypertension Father (James Coleman) Grandparent Mother (Wendi Coleman, ) Heart disease Grandparent Mother (Wendi Coleman, ) Diabetes mellitus type 2 Father (James Coleman) Fibromyalgia Mother (Wendi Coleman, ) Stroke Mother (Wendi Coleman, ) Depression Mother (Wendi Coleman, ) Grandparent Hyperlipidemia Father (James Coleman) Depression Mother (Wendi Coleman, ) Sister (Leah Coleman) Grandparent Endometriosis Maternal Aunt Diabetes Mother (Wendi Coleman, ) Grandparent Father (James Coleman) Seizures Mother (Wendi Coleman, ) Procedure history: EGD - Esophagogastroduodenoscopy (1986464364) on 03/25/2022 at 31 Years. Vaginal hysterectomy (240203309) on 07/17/2020 at 30 Years. Dilation and curettage (83366544) in 2013 at 23 Years. Comments: 04/19/2019 10:44 Yola Brandon CMA, Dr. Cholecystectomy (21585385) in 2009 at 19 Years. Tonsillectomy and adenoidectomy (838737472) in 1995 at 5 Years. section (34430605). Comments: 07/17/2020 11:36 Benny Guerra RN 04/19/2019 10:45 Yola Brandon CMA 2009, 2013 Social History Social & Psychosocial Habits Alcohol 04/19/2019 Use: Never Employment/School 07/23/2021 Status: Employed Description: [employer], works in [employer] Substance Abuse 04/19/2019 Use: Never Tobacco 09/21/2019 Tobacco Use: Never (less than 100 in l Exposure to Tobacco Smoke Lives in non-smoking home Home/Environment 07/05/2020 Domestic Concerns None Living situation: Home/Independent Primary Payroll Lead: Self Current Home Treatments None Special Services and Community Resources None Spouse Name Shwetha Marital Status of Patient if Patient Independent Adult: Nutrition/Health 07/05/2020 Type of diet: Regular Appetite Good Eating Difficulties None Skin Breakdown/Decubitus Ulcers No Caffeine intake amount: none . Physical Examination Vital Signs 03/25/2022 7:58 EST Temperature Temporal Artery 36.3 DegC Peripheral Pulse Rate 84 bpm Respiratory Rate 15 br/min Systolic Blood Pressure Non-Invasive 126 mmHg Diastolic Blood Pressure Non-Invasive 80 mmHg Vital Signs(last 24 hrs) Last Charted Resp Rate 15 br/min (MAR 25 07:58) AUE336 mmHg (MAR 25 07:58) DBP80 mmHg (MAR 25 07:58) Measurements from flowsheet : Measurements 03/25/2022 7:58 EST Height 160.0 cm Admission Weight 84.1 kg Weight Method Stated [place] Body Weight 52.38 kg Admission Body Mass Index 32.85 m2 Pain assessment: Pain Assessment 03/25/2022 7:58 EST Primary Pain Intensity 0 Pain Scale Type 0-10 Pain scale . General: Alert and oriented. Airway: Normal temporomandibular joint mobility, Normal mouth, Normal neck range of motion. Mallampati classification: III (soft palate, base of uvula visible). Dentition Evaluation: Denies loose/chipped teeth. Respiratory: Respirations are non-labored. Cardiovascular: Normal rate. Neurologic: Alert, Oriented. Review / Management Results review: No qualifying data available , Lab results 03/25/2022 8:36 EST SN - Proc - Anesthesia Type MAC SN - Proc - EBL 0 mL SN - Proc - Actual Procedure ESOPHAGOGASTRODUODENOSCOPY 03/25/2022 8:36 EST SN - PP - Body Position Lateral Right Side-up Standard Intra-op 03/25/2022 8:36 EST SN - GCD - Post-operative Diagnosis GASTROESOPHAGEAL REFLUX DISEASE SN - GCD - Case Level OPD Level 3 03/25/2022 8:36 EST SN - CAt - Case Attendee SN - CAt - Case Attendee SN - CAt - Case Attendee SN - CAt - Case Attendee SN - CAt - Case Attendee SN - CAt - Case Attendee SN - CAt - Case Attendee SN - CAt - Case Attendee SN - CAt - Role Performed Primary Surgeon SN - CAt - Role Performed MACHINE SKIVER SN - CAt - Role Performed Education Site Manager 1 SN - CAt - Role Performed Community Services Manager 03/25/2022 8:12 EST Lactated Ringers Injection Begin Bag 1,000 mL mL 03/25/2022 7:58 EST Designated Person #1 We May Share MERI Martin [phone] Designated Person #1 Relationship Spouse Privacy Restrictions Requested None Height 160.0 cm Admission Weight 84.1 kg Weight Method Stated [place] Body Weight 52.38 kg Admission Body Mass Index 32.85 m2 Temperature Temporal Artery 36.3 DegC Peripheral Pulse Rate 84 bpm Respiratory Rate 15 br/min Systolic Blood Pressure Non-Invasive 126 mmHg Diastolic Blood Pressure Non-Invasive 80 mmHg Primary Pain Intensity 0 Pain Scale Type 0-10 Pain scale Heart Sounds ICU S1S2 Heart Rhythm Regular Oxygen Therapy Room air Oxygen Saturation 97 % Abdomen Description Rounded Abdomen Palpation Non-Tender, Soft Bowel Sounds All Quadrants Hypoactive Urinary Elimination Voiding, no difficulties Status No, per patient Skin Temperature Warm Skin Description [place], Normal for ethnicity, Dry Skin Moisture General Dry IV Present Present Hand Right 03/25/2022 22 gauge Peripheral IV Activity: Insert new site Peripheral IV Site Condition: No complications Peripheral IV Number of Attempts: 1 Neurological Symptoms Patient denies Characteristics of Speech Clear Level of Consciousness Alert Strength All Extremities Strong Sensation All Extremities Intact Affect/Behavior Appropriate Orientation Oriented x 4 Sensory Deficits None Sleep Apnea Snore No Sleep Apnea Tired No Sleep Apnea Obstruction No Sleep Apnea Pressure No Sleep Apnea BMI No Sleep Apnea Age No Sleep Apnea Neck No Sleep Apnea Gender No Sleep Apnea Score 0 High Risk for Sleep Apnea No Diagnosed With Sleep Apnea No Advanced Directives No - refuses information Infectious Disease Symptoms Patient states no symptoms Infectious Disease Recent Exposure No Alcohol and Drug Use No Employee of Institutional Living No Health Care Employee No History of Exposure to TB No History of Positive Chest X-Ray for TB No History of Positive TB Skin Test No Homeless No Known Immunosuppression No Recent Immigrant No Resident of Institutional Living No Bloody Sputum No Fatigue No Fever No Loss of Appetite No Night Sweats No Persistent Cough > 3 Weeks No Weight Loss No 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 Consent Form Signed Yes Patient Dressed In Hospital gown Pre-op Preparation Glasses removed History & Physical Update On Chart Yes History & Physical On Chart Yes Obstructive Sleep Apnea Assess Completed Yes Orientation Assessment Oriented x 4 Safety Brochure Information Reviewed Unable to complete [place] Video Viewed No Individuals Taught Patient, Spouse Learning Readiness Willing to learn Barriers to Learning None evident Teaching Method Explanation Teaching Evaluation No further teaching needed Preferred Written Language [place] Preferred Spoken Language [place] Pre Procedure/Surgery Education Appropriate expectations Ed-Behaviors to Avoid Verbalizes/Nonverbally indicates understanding Information Given by Patient Patient's Current Physicians Patient's Current Physicians Belongings At Bedside Glasses, Pants, Shirt, Shoes Discharge To, Anticipated Home with family care Activity Status ADL Ambulating in clay, Ambulating in room, Awake NPO Status Maintained Standard Safety ID band on, Allergy Band on, Call device within reach, Bed in low position, Wheels locked, Visitor at bedside, Safety level maintained Prev Test Positive/Diagnosis w/COVID-19 No Current Quarantine/Isolated any Illness No Any Contact with Sick Animals/Birds No Traveled Anywhere in Last 30 Days No Allergy Band on and Verified Yes Patient ID Band on and Verified Yes Implants Verified Yes Pacemaker/AICD Verified Yes Last Fluid Intake 03/24/2022 20:00 Last Food Intake 03/24/2022 18:30 Last Void 03/25/2022 8:08 Lost Weight Unintentionally Recently No Eat Poorly Due to Decreased Appetite No Total MST Score 0 No Personal Devices, Patient Valuables None Admission Note-Nursing Same Day Patient History . Assessment and Plan [place] [employer] Anesthesiologists (ASA) physical status classification: Class II. Anesthetic Preoperative Plan Anesthetic technique: MAC. Informed consent: signed by patient. Digitally Signed by MANSOOR ROACH on 03/25/2022 09:13 AM [facility] No data available for this section [facility] Evaluation + Plan note Future Appointments Appointment Date:02/07/2022 05:30:00 PM Scheduled Provider: Location:[facility] Appointment Type:PT [facility] Appointment Date:02/18/2022 09:30:00 AM Scheduled Provider:HAILY BROWN Location:[facility] Appointment Type:PC OV [facility] Evaluation + Plan note Future Appointments Appointment Date:05/27/2022 11:00:00 AM Scheduled Provider:HAILY BROWN Location:[facility] Appointment Type:PC OV [facility] Evaluation + Plan note Future Appointments Appointment Date:11/26/2022 01:00:00 PM Scheduled Provider:HAILY BROWN Location:[facility] Appointment Type:[facility] evaluation + Plan note Future Appointments Appointment Date:12/23/2022 10:00:00 AM Scheduled Provider: Location:[facility] Appointment Type:US Renal Appointment Date:01/24/2023 07:00:00 PM Scheduled Provider: Location:[facility] Appointment Type: Home Studies Diagnostic Tests Pending * Lyme Disease PCR 12/16/22 * Protein Electrophoresis Urine 12/16/22 * Bill [place] Virus Antibody Titer 12/16/22 Future Scheduled Tests Radiology* US Renal 12/23/22 [facility] evaluation + Plan note Future Appointments Appointment Date:01/24/2023 07:00:00 PM Scheduled Provider: Location:[facility] Appointment Type: Home Studies [facility] evaluation + Plan note Future Appointments Appointment Date:03/15/2024 02:00:00 PM Scheduled Provider: Location:[facility] Appointment Type:MA Mammogram Screening Bilateral w/ Edi Diagnostic Tests Pending * Insulin Antibodies 03/08/24 Future Scheduled Tests Radiology* MA Mammo Screening Bilateral w/ Edi 03/15/24 * US Thyroid 05/22/23 * US Thyroid 03/08/24 [facility] evaluation + Plan note Future Appointments Appointment Date:03/16/2024 05:00:00 PM Scheduled Provider: Location:[facility] Appointment Type:US Thyroid Appointment Date:04/09/2024 08:00:00 PM Scheduled Provider: Location:[facility] Appointment Type: PSG (Polysomnograph) Future Scheduled Tests Radiology* US Thyroid 05/22/23 * US Thyroid 03/16/24 [facility] evaluation + Plan note Future Appointments Appointment Date:04/09/2024 08:00:00 PM Scheduled Provider: Location:[facility] Appointment Type:SL PSG (Polysomnograph) Future Scheduled Tests Radiology* US Thyroid 05/22/23 [facility] Evaluation note* Diagnosis Screening for genitourinary condition Screening for other and unspecified genitourinary condition documented in this encounter [facility] noteNo assessment information availableWAultman [facility] Work Phone: Hospital Discharge instructions No data available for this section [facility] Progress note No data available for this section [facility] Reason for referral (narrative)No reason for referral information availableWAultman Orrville Hospital Work Phone: Summary Purpose Family History No Family History Records Found Relationship Condition Age at Onset Recorded Date/T maame Not Specified Seizure Unknown Endometriosis Unknown Disorder of thyroid Unknown Cerebrovascular accident (CVA) Unknown mother Asthma Unknown Malignant neoplasm Unknown Diabetes mellitus Unknown Fibromyalgia Unknown Cardiac disease Unknown Hypertension Unknown Depression Unknown Lupus Unknown Rheumatoid arthritis Unknown father Diabetes mellitus Unknown grandmother Malignant neoplasm Unknown Malignant neoplasm of breast Unknown Advance Directives No Advanced Directives Records Found Advance Directive Response Recorded Date/ Time Living Will No June 04 10:36am Do you have a Healthcare Power of Cloth Boil Off Machine Operator? No June 04, 2024 10:36am Advance Directives No May 18, 2013 11:09am Chief Complaint and Reason for Visit Chief Complaint Admit Date follow up June 03, 2024 2 :36pm 3 M FU June 21, 2024 8:17am Epigastric pain August 09, 2024 7:1 3am Additional Source Comments INFORMATION SOURCE (unrecogn ized section and content) DATE CREATED AUTHOR 08/11/2018 [facility] DATE CREATED AUTHOR AUTHOR'S ORGANIZ ATION 03/07/2023 [facility] DATE CREATED AUTHOR AUTHOR'S ORGANIZ ATION 07/05/2023 [facility] ([place]) DATE CREATED AUTHOR AUTHOR'S ORGANIZ ATION 08/20/2024 [facility] DATE CREATED AUTHOR AUTHOR'S ORGANIZ ATION 09/28/2024 [facility] Care Team (unrecognized sect ion and content) Care Team Personnel Name: HAILY BROWN SKIVER SOCK LININGS-CORRECTIONAL CASE MANAGER Position: P4 Advanced Practice Nurse Med Service: Active Provider Member Role: Primary Care Physician Address: Address: [address] [place] [address]- Care Team Related Persons Name: SHWETHA MARTIN Address: Home [address] [place], [place] [id number] Care Team Personnel Name: HAILY BROWN SKIVER SOCK LININGS-CORRECTIONAL CASE MANAGER Position: P4 Advanced Practice Nurse Member Role: Primary Care Physician Address: Address: [address] [place] [address] Care Team Related Persons Name: SHWETHA MARTIN Address: Home [address] [place], [place] [id number] Care Team Personnel Name: OLIVERARLET HAILY SKIVER SOCK LININGS-CORRECTIONAL CASE MANAGER Position: P4 Advanced Practice Nurse Member Role: Primary Care Physician Address: Address: [address] [place] [address] Care Team Related Persons Name: SHWETHA MARTIN Address: Home [address] [place], [place] [id number] Patient Care team informatio n (unrecognized section and content) 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 Relationship Specialty Start Date End Date Jaelyn Li DO PCP - [facility] 07/03/15 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 Relationship Specialty Start Date End Date Jaelyn Li DO PCP - General [facility] 07/03/15 Team Status: Active Member Role Status Dates Haily Brown NP, PRODUCT DEVELOPMENT SPECIALIST-C Primary Care Provider Active Team Status: Inactive Member Role Status Dates Haily Brown NP, PRODUCT DEVELOPMENT SPECIALIST-C Primary Care Provider Active Start: June 03, 2024 End: June 03, 2024 Haily Brown NP, PRODUCT DEVELOPMENT SPECIALIST-C Referring Provider Active Start: June 03, 2024 End: June 03, 2024 Carolyn Sanches NP-C Attending Provider Active Start: June 03, 2024 End: June 03, 2024 Team Status: Inactive Member Role Status Dates Haily Brown NP, PRODUCT DEVELOPMENT SPECIALIST-C Primary Care Provider Active Start: June 07, 2024 End: June 07, 2024 Haily Brown NP, PRODUCT DEVELOPMENT SPECIALIST-C Referring Provider Active Start: June 07, 2024 End: June 07, 2024 Dr. Thony Stein DO Attending Provider Active Start: June 07, 2024 End: June 07, 2024 Team Status: Active Member Role Status Dates Haily Brown NP, PRODUCT DEVELOPMENT SPECIALIST-C Primary Care Provider Active Start: June 07, 2024 Haily Brown NP, PRODUCT DEVELOPMENT SPECIALIST-C Referring Provider Active Start: June 07, 2024 Dr. Thony Stein DO Attending Provider Active Start: June 07, 2024 Dr. Thony Stein DO Other Provider Active St art: June 07, 2024 Team Status: Inactive Member Role Status Dates Haily Brown NP, PRODUCT DEVELOPMENT SPECIALIST-C Primary Care Provider Active Start: June 21, 2024 End: June 21, 2024 Haily Brown NP, PRODUCT DEVELOPMENT SPECIALIST-C Referring Provider Active Start: June 21, 2024 End: June 21, 2024 Carolyn Sanches PRODUCT DEVELOPMENT SPECIALIST-C Attending Provider Active Start: June 21, 2024 End: June 21, 2024 Team Status: Inactive Member Role Status Dates Haily Brown NP, PRODUCT DEVELOPMENT SPECIALIST-C Primary Care Provider Active Start: June 22, 2024 End: June 22, 2024 Carolyn Sanches PRODUCT DEVELOPMENT SPECIALIST-C Attending Provider Active Start: June 22, 2024 End: June 22, 2024 Carolyn Sanches , PRODUCT DEVELOPMENT SPECIALIST-C Referring Provider Active Start: June 22, 2024 End: June 22, 2024 Team Status: Inactive Member Role Status Dates Haily Brown NP, PRODUCT DEVELOPMENT SPECIALIST-C Primary Care Provider Active Start: August 09, 2024 End: August 09, 2024 Carolyn Sanches PRODUCT DEVELOPMENT SPECIALIST-C Attending Provider Active Start: August 09, 2024 End: August 09, 2024 Carolyn Sanches , PRODUCT DEVELOPMENT SPECIALIST-C Referring Provider Active Start: August 09, 2024 End: August 09, 2024 Source Comments (unrecognize d section and content) In the event this informatio n is protected by the Federal Confidentiality of Alcohol and Drug Abuse Patient Records regulations: The Federal rules restrict any use of the information to criminally investigate or prosecute any alcohol or drug abuse patient.[facility] event this information is protected by the Federal Confidentiality of Alcohol and Drug Abuse Patient Records regulations: The Federal rules restrict any use of the information to criminally investigate or prosecute any alcohol or drug abuse patient.[facility] Reason for Visit (unrecogniz ed section and content) Reason Comments Consult FOR RECORDS PERTAINING TO PATIENTS WHO ARE OR HAVE BEEN ENROLLED IN A CHEMICAL DEPENDENCY/SUBSTANCEABUSE PROGRAM, SOME INFORMATION MAY BE OMITTED. This clinical summary was aggregated from multiple sources. Caution should be exercised in using it in the provision of clinical care. This summary normalizes information from multiple sources, and as a consequence, information in this document may materially change the coding, format and clinical context of patient data. In addition, data may be omitted in some cases. CLINICAL DECISIONS SHOULD BE BASED ON THE PRIMARY CLINICAL RECORDS. [facility] provides no warranty or guarantee of the accuracy or completeness of information in this document.
[2024-12-02 07:57] LABS: Glucose GTT- Fasting 88 mg/dL (70-99)
[2024-12-02 09:03] LABS: CORTISOL AM 21.00 ug/dL (6.02-18.40); Cholesterol 213 mg/dL (<=200); FOLATES,SERUM (FOLIC ACID) 10.60 ng/mL (4.60-34.80); Low Density Lipoprotein Calc. 111 mg/dL; Triglycerides 289 mg/dL; Very Low Density Lipoprotein 58 mg/dL (5-40); Vitamin B12 984 pg/mL (180-914); cholesterol:hdl ratio screen 4.82
[2024-12-02 10:05] LABS: Glucose GTT-30 minutes 125 mg/dL (110-170)
[2024-12-02 10:05] LABS: Glucose GTT- 1 Hour 102 mg/dL (120-170)
[2024-12-02 10:41] LABS: Glucose GTT- 2 Hour 106 mg/dL (70-120)
[2024-12-03 04:07] LABS: CRP, High Sensitivity 0.62 mg/L (0.00-3.00)
[2024-12-03 15:08] LABS: INSULIN 120 MIN 64.4 uIU/mL (0.0-145.4); INSULIN 30 MIN 90.8 uIU/mL (0.0-121.9); INSULIN 60 MIN 130.0 uIU/mL (0.0-163.5); INSULIN FASTING 9.4 uIU/mL (2.6-24.9)
[2024-12-08 10:08] LABS: PROLACTIN 12.8 ng/mL (4.8-33.4); Testosterone, % Free 1.48 % (0.50-2.80); Testosterone, Free <.04 ng/dL (0.10-0.85)
== END | disposition home or self-care (01) ==
PROVIDERS: PCP Nurse Practitioner Family; Referring Provider Obstetrics & Gynecology; Visit Provider Obstetrics & Gynecology
DX: Z13.228 Encounter for screening for other metabolic disorders (principal); M79.2 Neuralgia and neuritis, unspecified; N91.1 Secondary amenorrhea; R73.09 Other abnormal glucose
CPT/HCPCS: 36415; 80061; 82533; 82607; 82627; 82670; 82746; 82951; 82952; 83525; 84146; 84270; 84402; 84403; 86141; 82626